=== PATIENT | male | born 1940 | race Caucasian/White ===

== ENCOUNTER 2016-10-14 12:12 | Emergency (ER) | payer OTHER ==
[~2016-10-14] VITALS: Ht 172.7 cm; Wt 115.7 kg
[2016-10-14 12:44] VITALS: BP 127/89
[2016-10-14 14:18] LABS: Basophils # (auto) 0 uL; Basophils % (auto) 0.4 % (0.0-2.0); Eosinophils # (auto) 0.2 uL; Eosinophils % (auto) 1.5 % (0.0-7.0); Hematocrit 41.3 % (41.0-53.0); Hemoglobin 13.7 g/dL (13.5-17.5); Lymphocytes # (auto) 1.7 uL; Lymphocytes % (auto) 14.8 % (10.0-50.0); Mean Corpuscular Hemoglobin 32.2 pg (28.0-32.0); Mean Corpuscular Hgb Conc. 33.3 g/dL (32.0-36.0); Mean Corpuscular Volume 96.6 fL (80.0-100.0); Mean Platelet Volume 7.2 fL (7.4-10.4); Monocytes # (auto) 0.6 uL; Monocytes % (auto) 4.9 % (0.0-12.0); Neutrophils # (auto) 9.1 uL; Neutrophils % (auto) 78.4 % (37.0-80.0); Platelet Count (auto) 458 10^3/uL (140-450); Red Cell Distribution Width 15.2 % (11.6-16.0); White Blood Cell 11.7 10^3/uL (4.4-10.8)
[2016-10-14 14:47] LABS: Albumin 3.4 g/dL (3.4-5.0); BUN/Creatinine Ratio 9.4; Bilirubin, Total 0.3 mg/dL (0.2-1.0); Calcium 8.9 mg/dL (8.5-10.1); Total Protein 7.7 g/dL (6.4-8.2)
[2016-10-14 15:18] LABS: Potassium 5.8 mmol/L (3.5-5.1)
[2016-10-14 15:24] LABS: INR 2.63 (0.9-1.15); Partial Thromboplastin Time 42.2 sec (22.64-33.71)
[2016-10-14 15:31] LABS: Magnesium 2.1 mg/dL (1.6-2.6)
[2016-10-14 16:13] LABS: B-Type Natriuretic Peptide 19.55 pg/mL (0-100)
[2016-10-14 16:20] LABS: Temperature: 23.3 C (20.0-25.0)
== END 2016-10-14 18:53 | disposition left against medical advice (07) ==
LOC: ER 12:12
DX: R79.89 Other specified abnormal findings of blood chemistry (principal); Z53.21 Procedure and treatment not carried out due to patient leaving prior to being seen by health care provider
CPT/HCPCS: 36415; 80053; 82140; 83735; 83880; 84443; 84484; 85025; 85379; 85610; 85730

== ENCOUNTER → 2016-10-14 | Outpatient (CLI) | payer OTHER ==
[~2016-10-14] MED LIST: DYA375C PO; GABA-498 OR; GLIP-116 OR; IBUP600T27 PO; LEVO125T46 PO; LOPE2CAP PO; METF-316 OR; SIMV-13 PO; WARF4TAB31 PO
[2016-10-14 09:43] LABS: Basophils # (auto) 0 uL; Basophils % (auto) 0.3 % (0.0-2.0); Eosinophils # (auto) 0.3 uL; Eosinophils % (auto) 2.4 % (0.0-7.0); Hematocrit 43.1 % (41.0-53.0); Hemoglobin 14.5 g/dL (13.5-17.5); Lymphocytes # (auto) 2.3 uL; Lymphocytes % (auto) 20.8 % (10.0-50.0); Mean Corpuscular Hemoglobin 32.5 pg (28.0-32.0); Mean Corpuscular Hgb Conc. 33.7 g/dL (32.0-36.0); Mean Corpuscular Volume 96.4 fL (80.0-100.0); Mean Platelet Volume 7.5 fL (7.4-10.4); Monocytes # (auto) 0.7 uL; Monocytes % (auto) 6.2 % (0.0-12.0); Neutrophils # (auto) 7.7 uL; Neutrophils % (auto) 70.3 % (37.0-80.0); Platelet Count (auto) 464 10^3/uL (140-450); Red Cell Distribution Width 15.6 % (11.6-16.0); White Blood Cell 10.9 10^3/uL (4.4-10.8)
[2016-10-14 09:55] LABS: Urine Bilirubin Negative (Negative); Urine Blood Negative /uL (Negative); Urine Color Yellow (Yellow); Urine Glucose Normal (Normal); Urine Ketone Negative (Negative); Urine Mucus FEW (None Seen); Urine RBC 2 /hpf (0 - 3); Urine Urobilinogen Normal (Negative); Urine WBC Clumps PRESENT /hpf (None Seen); Urine pH 5.5 (5.0-8.0)
[2016-10-14 09:56] LABS: Urine Nitrite POSITIVE (Negative)
[2016-10-14 10:13] LABS: Albumin 3.4 g/dL (3.4-5.0); BUN/Creatinine Ratio 10.1; Bilirubin, Total 0.3 mg/dL (0.2-1.0); Calcium 9.3 mg/dL (8.5-10.1)
[2016-10-14 10:23] LABS: Potassium 5.7 mmol/L (3.5-5.1)
== END | disposition home or self-care (01) ==
LOC: LAB 08:23
PROVIDERS: ATTEND Internal Medicine
DX: Z00.00 Encounter for general adult medical examination without abnormal findings (principal); I10 Essential (primary) hypertension; E78.5 Hyperlipidemia, unspecified; E55.9 Vitamin D deficiency, unspecified
CPT/HCPCS: 36415; 80053; 80061; 81001; 82043; 82270; 82306; 83036; 84153; 85025

== ENCOUNTER 2016-11-03 18:02 | Inpatient (IN) | payer OTHER ==
[~2016-11-03] VITALS: Ht 172.7 cm; Wt 118.1 kg
[~2016-11-03 18:02] MED LIST changes: -METF-316 OR; +METF-372 OR
[2016-11-03] MEDS ORDERED: VANCOMYCIN 1GM/250ML D5W 250 ML IV ONE (19:15)
[2016-11-03] MEDS ORDERED: SODIUM CHLORIDE 0.9% 1,000 ML IV ONE (19:15)
[2016-11-03] MEDS ORDERED: HYDROmorphone HCL 2 MG/ML VL IV ONE (19:15)
[2016-11-03] MEDS ORDERED: ONDANSETRON HCL 4 MG/2 ML VIAL IV ONE (19:15)
[2016-11-03] MEDS ORDERED: PIPERACILLIN-TAZO 4.5GM 100 ML IV ONE (19:15)
[2016-11-03] MEDS ORDERED: KETOROLAC TROMETH 30 MG/ML 1ML VIAL IV ONE (19:15)
[2016-11-03 20:09] LABS: Basophils # (auto) 0 uL; Basophils % (auto) 0.3 % (0.0-2.0); Eosinophils # (auto) 0.2 uL; Eosinophils % (auto) 1.3 % (0.0-7.0); Hematocrit 36.4 % (41.0-53.0); Hemoglobin 12.1 g/dL (13.5-17.5); Lymphocytes # (auto) 1.4 uL; Lymphocytes % (auto) 11.3 % (10.0-50.0); Mean Corpuscular Hemoglobin 31.5 pg (28.0-32.0); Mean Corpuscular Hgb Conc. 33.2 g/dL (32.0-36.0); Mean Corpuscular Volume 94.8 fL (80.0-100.0); Mean Platelet Volume 7.7 fL (7.4-10.4); Monocytes # (auto) 0.6 uL; Neutrophils # (auto) 10.3 uL; Neutrophils % (auto) 82.1 % (37.0-80.0); Platelet Count (auto) 406 10^3/uL (140-450); Red Cell Distribution Width 15.2 % (11.6-16.0); White Blood Cell 12.5 10^3/uL (4.4-10.8)
[2016-11-03 20:27] LABS: Partial Thromboplastin Time 52.1 sec (22.64-33.71)
[2016-11-03 20:33] LABS: INR 3.31 (0.9-1.15); Prothrombin Time 36.5 sec (9.37-12.3)
[2016-11-03 20:43] LABS: Albumin 2.7 g/dL (3.4-5.0); Alkaline Phosphatase 89 U/L (45-117); Anion Gap 10 (5-15); Aspartate Aminotransferase 20 U/L (15-37); BUN/Creatinine Ratio 14.5; Bilirubin, Total 0.4 mg/dL (0.2-1.0); Blood Urea Nitrogen 21 mg/dL (7-18); Calcium 8.2 mg/dL (8.5-10.1); Carbon Dioxide 19 mmol/L (21-32); Chloride 104 mmol/L (98-107); GFR African American 61 mL/min; GFR Non-African American 51 mL/min; Glucose 230 mg/dL (74-106); Potassium 4.6 mmol/L (3.5-5.1); Sodium 133 mmol/L (136-145); Total Protein 6.7 g/dL (6.4-8.2)
[2016-11-03 20:53] LABS: B-Type Natriuretic Peptide 84.16 pg/mL (0-100)
[2016-11-03 21:11] LABS: Temperature: 23.3 C (20.0-25.0)
[2016-11-03] MEDS ORDERED: NITROGLYCERIN 0.4 MG SL TAB SL PRN (22:00)
[2016-11-03] MEDS ORDERED: MORPHINE SULF INJ 2 MG/ML SYRINGE 1ML IV PRN ×2 (22:00)
[2016-11-03] MEDS ORDERED: ONDANSETRON HCL 4 MG/2 ML VIAL IV PRN (22:00)
[2016-11-03] MEDS ORDERED: DEXTROSE (50%) 50ML SYRG IV PRN (22:00)
[2016-11-03] MEDS ORDERED: VANCOMYCIN PER PHARMACY 0 MG IV SCH (22:00)
[2016-11-03] MEDS ORDERED: HYDROcodone-ACET 5/325MG TAB PO PRN (22:00)
[2016-11-03] MEDS ORDERED: TEMAZEPAM 15 MG CAP PO PRN (22:00)
[2016-11-03] MEDS: SODIUM CHLOR 0.9% PF (SALINE LOCK) 10ML VIAL IV SCH (22:14)
[2016-11-03] MEDS: InsuLIN REG 1unit/0.01ml Soln (100units/ml) SC SCH (22:18)
[2016-11-03] MEDS: ACCU-CHEK COMFORT CURVE STRIP VI SCH (22:18)
[2016-11-03] MEDS: GABAPENTIN 400 MG CAP PO SCH (22:22)
[2016-11-03] MEDS: ATORVASTATIN 20 MG TAB PO SCH (22:22)
[2016-11-04] VITALS (13 sets, daily range): BP systolic 106–126; BP diastolic 22–89
[2016-11-04] MEDS: SODIUM CHLOR 0.9% PF (SALINE LOCK) 10ML VIAL IV SCH ×3 (05:57→21:53)
[2016-11-04] MEDS: LEVOTHYROXINE SODIUM 25 MCG TAB PO SCH (06:00)
[2016-11-04] MEDS: ACCU-CHEK COMFORT CURVE STRIP VI SCH ×4 (06:00→22:24)
[2016-11-04] MEDS: InsuLIN REG 1unit/0.01ml Soln (100units/ml) SC SCH ×4 (06:00→22:24)
[2016-11-04] MEDS: PIPERACILLIN-TAZOB 3.375GM 100 ML IV SCH ×3 (07:00→19:03)
[2016-11-04] MEDS ORDERED: GASTROGRAFIN 30 ML SOL ONE (08:16)
[2016-11-04] MEDS ORDERED: metroNIDAZOLE 500MG/100ML 100 ML IV SCH (10:00)
[2016-11-04] MEDS ORDERED: PIPERACILLIN-TAZOB 3.375GM 100 ML IV SCH (10:00)
[2016-11-04] MEDS ORDERED: TRIAMTERENE/HCTZ 37.5/25 MG CAP PO SCH (10:00)
[2016-11-04 10:11] LABS: Albumin 2.7 g/dL (3.4-5.0); Anion Gap 11 (5-15); Aspartate Aminotransferase 45 U/L (15-37); BUN/Creatinine Ratio 15.3; Blood Urea Nitrogen 27 mg/dL (7-18); Calcium 8.2 mg/dL (8.5-10.1); Carbon Dioxide 20 mmol/L (21-32); Chloride 105 mmol/L (98-107); GFR African American 49 mL/min; GFR Non-African American 40 mL/min; Glucose 173 mg/dL (74-106); Potassium 4.8 mmol/L (3.5-5.1); Sodium 136 mmol/L (136-145)
[2016-11-04 10:13] LABS: Alkaline Phosphatase 96 U/L (45-117); Bilirubin, Total 0.6 mg/dL (0.2-1.0); Total Protein 6.8 g/dL (6.4-8.2)
[2016-11-04 10:16] LABS: Basophils # (auto) 0 uL; Basophils % (auto) 0.1 % (0.0-2.0); Eosinophils # (auto) 0.3 uL; Eosinophils % (auto) 2.7 % (0.0-7.0); Hematocrit 36.6 % (41.0-53.0); Hemoglobin 12.3 g/dL (13.5-17.5); Lymphocytes # (auto) 1.2 uL; Lymphocytes % (auto) 10.7 % (10.0-50.0); Mean Corpuscular Hemoglobin 31.8 pg (28.0-32.0); Mean Corpuscular Hgb Conc. 33.7 g/dL (32.0-36.0); Mean Corpuscular Volume 94.6 fL (80.0-100.0); Mean Platelet Volume 7.8 fL (7.4-10.4); Monocytes # (auto) 0.7 uL; Monocytes % (auto) 6.2 % (0.0-12.0); Neutrophils # (auto) 9.2 uL; Neutrophils % (auto) 80.3 % (37.0-80.0); Platelet Count (auto) 364 10^3/uL (140-450); SUSPECT VIEW TRANSMISSION; White Blood Cell 11.4 10^3/uL (4.4-10.8)
[2016-11-04] MEDS: VANCOMYCIN 1GM/250ML D5W 250 ML IV SCH ×2 (10:18→21:53)
[2016-11-04] MEDS: GABAPENTIN 400 MG CAP PO SCH ×2 (10:19→21:54)
[2016-11-04 10:39] LABS: Partial Thromboplastin Time 53.2 sec (22.64-33.71)
[2016-11-04 10:46] LABS: INR 3.55 (0.9-1.15); Prothrombin Time 39.2 sec (9.37-12.3)
[2016-11-04] MEDS: SODIUM CHLORIDE 0.9% 1,000 ML IV SCH (13:15)
[2016-11-04] MEDS ORDERED: ACETAMINOPHEN 325 MG TAB PO PRN (16:15)
[2016-11-04] MEDS: ATORVASTATIN 20 MG TAB PO SCH (21:54)
[2016-11-05] VITALS (18 sets, daily range): BP systolic 102–139; BP diastolic 55–86
[2016-11-05] MEDS: PIPERACILLIN-TAZOB 3.375GM 100 ML IV SCH ×4 (00:42→19:44)
[2016-11-05] MEDS: SODIUM CHLORIDE 0.9% 1,000 ML IV SCH ×2 (02:35→15:55)
[2016-11-05 05:06] LABS: Urine Bilirubin Negative (Negative); Urine Blood Negative /uL (Negative); Urine Color Yellow (Yellow); Urine Glucose Normal (Normal); Urine Ketone Negative (Negative); Urine Nitrite Negative (Negative); Urine RBC 1 /hpf (0 - 3); Urine Urobilinogen Normal (Negative); Urine pH 5.5 (5.0-8.0)
[2016-11-05] MEDS: SODIUM CHLOR 0.9% PF (SALINE LOCK) 10ML VIAL IV SCH ×3 (06:03→21:08)
[2016-11-05] MEDS: LEVOTHYROXINE SODIUM 25 MCG TAB PO SCH (06:03)
[2016-11-05] MEDS: InsuLIN REG 1unit/0.01ml Soln (100units/ml) SC SCH ×4 (06:04→22:00)
[2016-11-05] MEDS: ACCU-CHEK COMFORT CURVE STRIP VI SCH ×4 (06:04→21:09)
[2016-11-05 08:30] LABS: Basophils # (auto) 0 uL; Eosinophils # (auto) 0.1 uL; Eosinophils % (auto) 0.3 % (0.0-7.0); Hematocrit 34.4 % (41.0-53.0); Hemoglobin 11.6 g/dL (13.5-17.5); Lymphocytes # (auto) 0.9 uL; Lymphocytes % (auto) 5.5 % (10.0-50.0); Mean Corpuscular Hemoglobin 31.7 pg (28.0-32.0); Mean Corpuscular Hgb Conc. 33.7 g/dL (32.0-36.0); Mean Platelet Volume 7.2 fL (7.4-10.4); Monocytes # (auto) 0.5 uL; Monocytes % (auto) 3.2 % (0.0-12.0); Neutrophils # (auto) 14.1 uL; Platelet Count (auto) 411 10^3/uL (140-450); Red Cell Distribution Width 14.8 % (11.6-16.0); White Blood Cell 15.5 10^3/uL (4.4-10.8)
[2016-11-05 08:46] LABS: Partial Thromboplastin Time 42.6 sec (22.64-33.71)
[2016-11-05 08:52] LABS: Albumin 2.8 g/dL (3.4-5.0); BUN/Creatinine Ratio 17.8; Bilirubin, Total 0.8 mg/dL (0.2-1.0); Calcium 8.5 mg/dL (8.5-10.1); Potassium 4.7 mmol/L (3.5-5.1)
[2016-11-05 08:55] LABS: INR 1.76 (0.9-1.15); Prothrombin Time 19.3 sec (9.37-12.3)
[2016-11-05] MEDS ORDERED: PHYTONADIONE (VIT K)10 MG/ML 1ML VIAL SUBCUT ONE (10:30)
[2016-11-05] MEDS: CLINDAMYCIN 600MG IV 50 ML IV SCH ×2 (10:37→19:31)
[2016-11-05] MEDS: GABAPENTIN 400 MG CAP PO SCH ×2 (10:37→21:08)
[2016-11-05] MEDS: ATORVASTATIN 20 MG TAB PO SCH (21:08)
[2016-11-06] MEDS: PIPERACILLIN-TAZOB 3.375GM 100 ML IV SCH ×2 (02:40→06:14)
[2016-11-06] MEDS: CLINDAMYCIN 600MG IV 50 ML IV SCH (04:19)
[2016-11-06] MEDS: SODIUM CHLORIDE 0.9% 1,000 ML IV SCH (05:15)
[2016-11-06 05:59] VITALS: BP 118/60
[2016-11-06] MEDS: SODIUM CHLOR 0.9% PF (SALINE LOCK) 10ML VIAL IV SCH (06:14)
[2016-11-06] MEDS: ACCU-CHEK COMFORT CURVE STRIP VI SCH (06:15)
[2016-11-06] MEDS: LEVOTHYROXINE SODIUM 25 MCG TAB PO SCH (06:15)
[2016-11-06 06:25] LABS: Basophils # (auto) 0 uL; Eosinophils # (auto) 0.1 uL; Eosinophils % (auto) 0.9 % (0.0-7.0); Hematocrit 30.7 % (41.0-53.0); Hemoglobin 10.4 g/dL (13.5-17.5); Lymphocytes # (auto) 0.9 uL; Mean Corpuscular Hemoglobin 32.2 pg (28.0-32.0); Mean Corpuscular Volume 94.7 fL (80.0-100.0); Mean Platelet Volume 7.6 fL (7.4-10.4); Monocytes # (auto) 0.4 uL; Monocytes % (auto) 3.1 % (0.0-12.0); Neutrophils # (auto) 12.1 uL; Platelet Count (auto) 379 10^3/uL (140-450); Red Cell Distribution Width 14.6 % (11.6-16.0); White Blood Cell 13.6 10^3/uL (4.4-10.8)
[2016-11-06] MEDS: InsuLIN REG 1unit/0.01ml Soln (100units/ml) SC SCH (06:45)
[2016-11-06 07:00] LABS: BUN/Creatinine Ratio 17.5; Calcium 8.4 mg/dL (8.5-10.1)
[2016-11-06 08:00] VITALS: BP 110/53
[2016-11-06 09:11] LABS: Partial Thromboplastin Time 32.7 sec (22.64-33.71)
[2016-11-06 09:14] LABS: INR 1.24 (0.9-1.15); Prothrombin Time 13.6 sec (9.37-12.3)
[2016-11-06] MEDS ORDERED: PHYTONADIONE (VIT K)10 MG/ML 1ML VIAL SUBCUT SCH (10:00)
[2016-11-06] MEDS: GABAPENTIN 400 MG CAP PO SCH (10:16)
== END 2016-11-06 10:30 | disposition short-term general hospital (02) | DRG 871 ==
LOC: ER 18:04 → TELE 18:05 → TELE-EAST 23:07
PROVIDERS: ADMIT Emergency Medicine; ATTEND Internal Medicine
PROC: 30233N1 Transfusion of Nonautologous Red Blood Cells into Peripheral Vein, Percutaneous Approach (ICD-10-PCS; principal; 2016-11-03)
DX: A41.9 Sepsis, unspecified organism (principal); M72.6 Necrotizing fasciitis; K56.60 Unspecified intestinal obstruction; D68.9 Coagulation defect, unspecified; N39.0 Urinary tract infection, site not specified; N49.2 Inflammatory disorders of scrotum; J44.9 Chronic obstructive pulmonary disease, unspecified; I10 Essential (primary) hypertension; E11.22 Type 2 diabetes mellitus with diabetic chronic kidney disease; E78.5 Hyperlipidemia, unspecified; I12.9 Hypertensive chronic kidney disease with stage 1 through stage 4 chronic kidney disease, or unspecified chronic kidney disease; K43.9 Ventral hernia without obstruction or gangrene; N40.0 Benign prostatic hyperplasia without lower urinary tract symptoms; Z82.0 Family history of epilepsy and other diseases of the nervous system; Z83.3 Family history of diabetes mellitus; Z90.49 Acquired absence of other specified parts of digestive tract; Z90.79 Acquired absence of other genital organ(s); E11.40 Type 2 diabetes mellitus with diabetic neuropathy, unspecified; Z90.89 Acquired absence of other organs; Z71.89 Other specified counseling; Z86.718 Personal history of other venous thrombosis and embolism; E66.01 Morbid (severe) obesity due to excess calories; Z68.39 Body mass index [BMI] 39.0-39.9, adult; D64.9 Anemia, unspecified
CPT/HCPCS: 36415; 71010; 74176; 76870; 80048; 80053; 81001; 82962; 83036; 83605; 83880; 84484; 85025; 85610; 85730; 86141; 86850; 86900; 86901; 87040; 87081; 87086; 93005; 94761; 96365; 96368; 96375; J1815; J1885; J2405; J2543; J3430; J3490

== ENCOUNTER → 2017-02-05 | Outpatient (CLI) | payer OTHER ==
[~2017-02-05] MED LIST changes: -DYA375C PO; -GLIP-116 OR; -IBUP600T27 PO; -LOPE2CAP PO; -METF-372 OR; -SIMV-13 PO
== END | disposition home or self-care (01) ==
LOC: XYW 08:27
PROVIDERS: ATTEND Internal Medicine Cardiovascular Disease
DX: Z01.810 Encounter for preprocedural cardiovascular examination (principal); I11.9 Hypertensive heart disease without heart failure; I05.0 Rheumatic mitral stenosis; I35.0 Nonrheumatic aortic (valve) stenosis
CPT/HCPCS: 93306

== ENCOUNTER → 2017-02-11 | Outpatient (CLI) | payer OTHER ==
[~2017-02-11] VITALS: Ht 172.7 cm; Wt 111.1 kg
[~2017-02-11] MED LIST changes: +ADENOSINE 93 MG in GIVE UN-DILUTED 0 ML IV ONE; +ALBUTEROL SULF 2.5 MG/0.5ML(0.5%) NEB SOLN ONE; +IPRATROPIUM BROM 0.5 MG/2.5ML INH SOL ONE
== END | disposition home or self-care (01) ==
LOC: XY 08:49
PROVIDERS: ATTEND Internal Medicine Cardiovascular Disease
DX: Z01.810 Encounter for preprocedural cardiovascular examination (principal)
CPT/HCPCS: 78452; 93017; 94640; A9500; J0153

== ENCOUNTER 2017-03-25 05:59 | Day surgery (SDC) | payer OTHER ==
[2017-03-24 12:43] LABS: Basophils # (auto) 0.1 uL; Basophils % (auto) 0.5 % (0.0-2.0); Eosinophils # (auto) 0.4 uL; Hematocrit 37.7 % (41.0-53.0); Hemoglobin 12.2 g/dL (13.5-17.5); Lymphocytes # (auto) 1.5 uL; Lymphocytes % (auto) 11.9 % (10.0-50.0); Mean Corpuscular Hemoglobin 29.3 pg (28.0-32.0); Mean Corpuscular Hgb Conc. 32.3 g/dL (32.0-36.0); Mean Corpuscular Volume 90.8 fL (80.0-100.0); Monocytes # (auto) 0.6 uL; Monocytes % (auto) 4.8 % (0.0-12.0); Neutrophils % (auto) 79.8 % (37.0-80.0); Platelet Count (auto) 408 10^3/uL (140-450); Red Blood Cells 4.16 10^6/uL (4.5-5.90); Red Cell Distribution Width 18.9 % (11.8-14.3); White Blood Cell 12.6 10^3/uL (4.4-10.8)
[2017-03-24 12:49] LABS: Urine Bacteria MOD /hpf (None Seen); Urine Blood Negative /uL (Negative); Urine Mucus FEW (None Seen); Urine Specific Gravity 1.017 (1.001-1.035); Urine WBC 277 /hpf (0 - 3); Urine WBC Clumps PRESENT /hpf (None Seen)
[2017-03-24 13:07] LABS: Albumin 2.9 g/dL (3.4-5.0); BUN/Creatinine Ratio 12.7; Bilirubin, Total 0.3 mg/dL (0.2-1.0); Calcium 8.9 mg/dL (8.5-10.1); Potassium 5.2 mmol/L (3.5-5.1); Total Protein 7.2 g/dL (6.4-8.2)
[2017-03-24 13:09] LABS: INR 0.94 (0.9-1.15); Partial Thromboplastin Time 28.2 sec (22.64-33.71); Prothrombin Time 10.2 sec (9.37-12.3)
[~2017-03-25] VITALS: Ht 172.7 cm; Wt 112.5 kg
[~2017-03-25 05:59] MED LIST changes: -ADENOSINE 93 MG in GIVE UN-DILUTED 0 ML IV ONE; +ALBUAER3 IN; -ALBUTEROL SULF 2.5 MG/0.5ML(0.5%) NEB SOLN ONE; +APIX5TAB OR; -GABA-498 OR; +GLIP-115 PO; -IPRATROPIUM BROM 0.5 MG/2.5ML INH SOL ONE; -LEVO125T46 PO; +LEVO88TA4 PO; -WARF4TAB31 PO
[2017-03-25] MEDS ORDERED: MITOMYCIN 40 MG in STERILE WATER 60 ML IS ONE (06:45)
[2017-03-25] MEDS ORDERED: LEVOFLOXACIN 500MG 100 ML IV ONE (06:53)
[2017-03-25] MEDS ORDERED: NEOSTIGMINE 1 MG/ML INJ (10mg/10ML VIAL) IV ONE (07:37)
[2017-03-25] MEDS ORDERED: MIDAZOLAM HCL 1MG/1ML-2 ML VIAL ONE (07:37)
[2017-03-25] MEDS ORDERED: GLYCOPYRROLATE 0.2 MG/ML 1ML VIAL IV ONE (07:37)
[2017-03-25] MEDS ORDERED: SUCCINYLCHOLINE CHLORIDE 20 MG/ML 10ML VIAL IV ONE (07:37)
[2017-03-25] MEDS ORDERED: fentaNYL CITRATE 100 MCG/2 ML VL ONE (07:37)
[2017-03-25] MEDS ORDERED: ROCURONIUM 10MG/ML 10ML VIAL IV ONE (07:37)
[2017-03-25] MEDS ORDERED: PROPOFOL 10 MG/ML 20 ML IV ONE (07:38)
[2017-03-25] MEDS ORDERED: LIDOCAINE 2% JELLY 11ml (GLYDO) ONE (07:52)
[2017-03-25] MEDS ORDERED: ePHEDrine SULFATE 50 MG/ML AMP IV PRN (08:45)
[2017-03-25] MEDS ORDERED: MORPHINE SULF INJ 2 MG/ML SYRINGE 1ML IV PRN (08:45)
[2017-03-25] MEDS ORDERED: hydrALAZINE HCL 20 MG/ML VL IV PRN (08:45)
[2017-03-25] MEDS ORDERED: ONDANSETRON HCL 4 MG/2 ML VIAL IV ONE (08:45)
[2017-03-25 09:50] VITALS: BP 136/60
== END 2017-03-25 09:56 | disposition home or self-care (01) ==
LOC: SUR 05:59
PROVIDERS: ATTEND Urology
DX: D49.4 Neoplasm of unspecified behavior of bladder (principal); Z90.49 Acquired absence of other specified parts of digestive tract; E66.9 Obesity, unspecified; I12.9 Hypertensive chronic kidney disease with stage 1 through stage 4 chronic kidney disease, or unspecified chronic kidney disease; E11.22 Type 2 diabetes mellitus with diabetic chronic kidney disease; N18.3 Chronic kidney disease, stage 3 (moderate); I82.409 Acute embolism and thrombosis of unspecified deep veins of unspecified lower extremity; E03.9 Hypothyroidism, unspecified
CPT/HCPCS: 36415; 52224; 80053; 81001; 82962; 85025; 85610; 85730; 88305; 88341; 88342; J0330; J1956; J2250; J2704; J3010; J9280

== ENCOUNTER 2017-04-15 08:13 | Emergency (ER) | payer OTHER ==
[~2017-04-15] VITALS: Ht 172.7 cm; Wt 110.2 kg
[2017-04-15 10:29] VITALS: BP 122/64
== END 2017-04-15 10:54 | disposition home or self-care (01) ==
LOC: ER 08:13
DX: T14.8XXA Other injury of unspecified body region, initial encounter (principal); E11.22 Type 2 diabetes mellitus with diabetic chronic kidney disease; I12.9 Hypertensive chronic kidney disease with stage 1 through stage 4 chronic kidney disease, or unspecified chronic kidney disease; N18.9 Chronic kidney disease, unspecified; J44.9 Chronic obstructive pulmonary disease, unspecified; E78.5 Hyperlipidemia, unspecified; I82.409 Acute embolism and thrombosis of unspecified deep veins of unspecified lower extremity; W01.0XXA Fall on same level from slipping, tripping and stumbling without subsequent striking against object, initial encounter; Y93.01 Activity, walking, marching and hiking; Y92.89 Other specified places as the place of occurrence of the external cause; Y99.8 Other external cause status
CPT/HCPCS: 70450; 72100; 93005

== ENCOUNTER 2017-05-29 09:04 | Inpatient (IN) | payer OTHER ==
[~2017-05-29] VITALS: Ht 172.7 cm; Wt 120.8 kg
[~2017-05-29 09:04] MED LIST changes: -ALBUAER3 IN; +ALBUAER3 PO; -APIX5TAB OR; +APIX5TAB PO
[2017-05-29] MEDS ORDERED: HYDROmorphone HCL 2 MG/ML VL IV ONE (10:00)
[2017-05-29] MEDS ORDERED: ONDANSETRON HCL 4 MG/2 ML VIAL IV ONE (10:00)
[2017-05-29] MEDS ORDERED: DEXTROSE (50%) 50ML SYRG IV PRN (12:15)
[2017-05-29] MEDS ORDERED: ALBUTEROL SULF 2.5 MG/0.5ML(0.5%) NEB SOLN NEB PRN (12:15)
[2017-05-29] MEDS ORDERED: ACETAMINOPHEN 500 MG TAB PO PRN (12:15)
[2017-05-29] MEDS ORDERED: TEMAZEPAM 15 MG CAP PO PRN (12:15)
[2017-05-29] MEDS ORDERED: NITROGLYCERIN 0.4 MG SL TAB SL PRN (12:15)
[2017-05-29] MEDS ORDERED: MORPHINE SULFATE 10 MG/ML INJ 1ML SDV IV PRN (12:15)
[2017-05-29] MEDS: SODIUM CHLORIDE 0.9% 1,000 ML IV SCH ×2 (12:22→22:06)
[2017-05-29 12:25] LABS: Basophils # (auto) 0.1 uL; Basophils % (auto) 0.4 % (0.0-2.0); Eosinophils # (auto) 0.1 uL; Eosinophils % (auto) 0.6 % (0.0-7.0); Hematocrit 37.1 % (41.0-53.0); Hemoglobin 12.2 g/dL (13.5-17.5); Lymphocytes # (auto) 1.3 uL; Lymphocytes % (auto) 7.9 % (10.0-50.0); Mean Corpuscular Hemoglobin 30.1 pg (28.0-32.0); Mean Corpuscular Hgb Conc. 32.8 g/dL (32.0-36.0); Mean Corpuscular Volume 91.7 fL (80.0-100.0); Monocytes # (auto) 0.6 uL; Monocytes % (auto) 3.5 % (0.0-12.0); Neutrophils # (auto) 14.7 uL; Neutrophils % (auto) 87.6 % (37.0-80.0); Platelet Count (auto) 404 10^3/uL (140-450); Red Blood Cells 4.05 10^6/uL (4.5-5.90); White Blood Cell 16.8 10^3/uL (4.4-10.8)
[2017-05-29 12:43] LABS: Red Cell Distribution Width 20.7 % (11.8-14.3)
[2017-05-29 12:47] LABS: INR 0.92 (0.9-1.15)
[2017-05-29 12:48] LABS: BUN/Creatinine Ratio 14.7; Calcium 8.5 mg/dL (8.5-10.1); Magnesium 1.7 mg/dL (1.6-2.6); Potassium 5.2 mmol/L (3.5-5.1)
[2017-05-29 12:50] LABS: Bilirubin, Total 0.3 mg/dL (0.2-1.0); Total Protein 7.4 g/dL (6.4-8.2)
[2017-05-29] MEDS: HYDROcodone-ACET 5/325MG TAB PO PRN ×2 (13:29→22:25)
[2017-05-29] MEDS: MORPHINE SULFATE 10 MG/ML INJ 1ML SDV IV PRN ×2 (15:05→20:03)
[2017-05-29 15:51] VITALS: BP 112/62
[2017-05-29] MEDS ORDERED: SODIUM POLYSTYRENE SULF 15GM/60ML SUSP PO ONE (16:30)
[2017-05-29] MEDS: InsuLIN REG 1unit/0.01ml Soln (100units/ml) SC SCH ×2 (16:47→22:12)
[2017-05-29] MEDS: ACCU-CHEK COMFORT CURVE STRIP VI SCH ×2 (16:47→22:06)
[2017-05-29 16:50] LABS: Urine Bacteria MOD /hpf (None Seen); Urine Blood Negative /uL (Negative); Urine Budding Yeast FEW /hpf (None Seen); Urine Specific Gravity 1.015 (1.001-1.035); Urine WBC 20 /hpf (0 - 3)
[2017-05-29 20:00] VITALS: BP 134/72
[2017-05-29 21:45] VITALS: BP 134/72
[2017-05-29] MEDS: LORazepam 0.5 MG TAB PO PRN (23:21)
[2017-05-30] MEDS: PROMETHAZINE HCL 25 MG/ML 1ML IV PRN ×4 (00:46→17:27)
[2017-05-30] MEDS: MORPHINE SULFATE 10 MG/ML INJ 1ML SDV IV PRN ×3 (00:46→17:15)
[2017-05-30 04:36] VITALS: BP 129/75
[2017-05-30 06:02] LABS: Basophils # (auto) 0 uL; Basophils % (auto) 0.2 % (0.0-2.0); Eosinophils # (auto) 0 uL; Eosinophils % (auto) 0.1 % (0.0-7.0); Hematocrit 41.3 % (41.0-53.0); Hemoglobin 13.5 g/dL (13.5-17.5); Lymphocytes # (auto) 0.8 uL; Lymphocytes % (auto) 4.2 % (10.0-50.0); Mean Corpuscular Hemoglobin 30.9 pg (28.0-32.0); Mean Corpuscular Hgb Conc. 32.6 g/dL (32.0-36.0); Mean Corpuscular Volume 94.8 fL (80.0-100.0); Monocytes # (auto) 0.6 uL; Monocytes % (auto) 3.4 % (0.0-12.0); Neutrophils # (auto) 17.3 uL; Neutrophils % (auto) 92.1 % (37.0-80.0); Platelet Count (auto) 429 10^3/uL (140-450); Red Blood Cells 4.35 10^6/uL (4.5-5.90); White Blood Cell 18.8 10^3/uL (4.4-10.8)
[2017-05-30 06:07] LABS: Red Cell Distribution Width 20.9 % (11.8-14.3)
[2017-05-30 06:21] LABS: Albumin 3.1 g/dL (3.4-5.0); Calcium 8.8 mg/dL (8.5-10.1)
[2017-05-30 06:23] LABS: BUN/Creatinine Ratio 15.9
[2017-05-30 06:27] LABS: Potassium 5.9 mmol/L (3.5-5.1)
[2017-05-30 06:28] LABS: Bilirubin, Total 0.5 mg/dL (0.2-1.0); Total Protein 7.9 g/dL (6.4-8.2)
[2017-05-30] MEDS: ACCU-CHEK COMFORT CURVE STRIP VI SCH ×3 (06:31→17:16)
[2017-05-30] MEDS: InsuLIN REG 1unit/0.01ml Soln (100units/ml) SC SCH ×3 (06:31→17:27)
[2017-05-30] MEDS ORDERED: SODIUM POLYSTYRENE SULF 15GM/60ML SUSP PO ONE ×2 (06:45→10:30)
[2017-05-30] MEDS: SODIUM CHLORIDE 0.9% 1,000 ML IV SCH ×2 (07:46→17:16)
[2017-05-30 08:00] VITALS: BP 142/63
[2017-05-30 09:00] VITALS: BP 142/63
[2017-05-30] MEDS ORDERED: cefTRIAXone 1GM/10ml IVPUSH 10 ML IV ONE (12:15)
[2017-05-30] MEDS ORDERED: DEXTROSE (50%) 50ML SYRG IV PRN (12:15)
[2017-05-30] MEDS ORDERED: PANTOPRAZOLE 40 MG/10 ML VIAL IV ONE ×2 (12:15→12:30)
[2017-05-30 13:00] VITALS: BP 136/67
[2017-05-30] MEDS ORDERED: SODIUM BICARBONATE 8.4 % INJ 50ML VIAL IV ONE (13:00)
[2017-05-30 17:00] VITALS: BP 137/54
[2017-05-30 18:16] LABS: BUN/Creatinine Ratio 19.2; Potassium 4.7 mmol/L (3.5-5.1)
[2017-05-30 22:05] VITALS: BP 128/60
[2017-05-30] MEDS: INSULIN DETEMIR(LEVEMIR) 1unit/0.01ml Soln (100units/ml) SC SCH (22:19)
[2017-05-31] MEDS: InsuLIN REG 1unit/0.01ml Soln (100units/ml) SC SCH ×4 (00:17→18:00)
[2017-05-31] MEDS: ACCU-CHEK COMFORT CURVE STRIP VI SCH ×4 (00:17→18:00)
[2017-05-31] MEDS: SODIUM CHLORIDE 0.9% 1,000 ML IV SCH ×2 (03:59→09:49)
[2017-05-31 04:47] VITALS: BP 140/73
[2017-05-31 06:07] LABS: Basophils # (auto) 0 uL; Basophils % (auto) 0.2 % (0.0-2.0); Eosinophils # (auto) 0.1 uL; Eosinophils % (auto) 0.5 % (0.0-7.0); Hematocrit 35.1 % (41.0-53.0); Hemoglobin 11.7 g/dL (13.5-17.5); Lymphocytes # (auto) 1.3 uL; Lymphocytes % (auto) 10.8 % (10.0-50.0); Mean Corpuscular Hemoglobin 30.6 pg (28.0-32.0); Mean Corpuscular Hgb Conc. 33.2 g/dL (32.0-36.0); Monocytes # (auto) 0.6 uL; Neutrophils # (auto) 10.3 uL; Neutrophils % (auto) 83.5 % (37.0-80.0); Nucleated Red Blood Cells % 0.1 %; Platelet Count (auto) 370 10^3/uL (140-450); Red Blood Cells 3.82 10^6/uL (4.5-5.90); White Blood Cell 12.3 10^3/uL (4.4-10.8)
[2017-05-31] MEDS: LEVOTHYROXINE SODIUM 88 MCG TAB PO SCH (06:07)
[2017-05-31 06:19] LABS: Red Cell Distribution Width 21.3 % (11.8-14.3)
[2017-05-31 06:30] LABS: BUN/Creatinine Ratio 18.6; Calcium 7.8 mg/dL (8.5-10.1); Potassium 4.4 mmol/L (3.5-5.1)
[2017-05-31] MEDS: MORPHINE SULFATE 10 MG/ML INJ 1ML SDV IV PRN (08:04)
[2017-05-31] MEDS ORDERED: cefTRIAXone 1GM/10ml IVPUSH 10 ML IV SCH (09:00)
[2017-05-31 09:12] VITALS: BP 139/64
[2017-05-31] MEDS: PANTOPRAZOLE 40 MG/10 ML VIAL IV SCH (09:42)
[2017-05-31] MEDS: INSULIN DETEMIR(LEVEMIR) 1unit/0.01ml Soln (100units/ml) SC SCH ×2 (09:47→21:37)
[2017-05-31 12:19] VITALS: BP 151/67
[2017-05-31] MEDS: HYDROmorphone HCL 2 MG/ML VL IV PRN ×2 (14:54→19:51)
[2017-05-31 17:23] VITALS: BP 128/58
[2017-05-31 22:11] VITALS: BP 103/58
[2017-06-01] MEDS: SODIUM CHLORIDE 0.9% 1,000 ML IV SCH ×3 (00:11→20:11)
[2017-06-01] MEDS: ACCU-CHEK COMFORT CURVE STRIP VI SCH ×4 (00:22→17:39)
[2017-06-01] MEDS: HYDROmorphone HCL 2 MG/ML VL IV PRN ×3 (04:00→22:33)
[2017-06-01 04:57] VITALS: BP 119/58
[2017-06-01] MEDS: InsuLIN REG 1unit/0.01ml Soln (100units/ml) SC SCH ×4 (05:19→17:39)
[2017-06-01 06:20] LABS: Basophils # (auto) 0 uL; Basophils % (auto) 0.2 % (0.0-2.0); Eosinophils # (auto) 0.2 uL; Eosinophils % (auto) 1.7 % (0.0-7.0); Hematocrit 32.6 % (41.0-53.0); Lymphocytes # (auto) 1.3 uL; Lymphocytes % (auto) 11.6 % (10.0-50.0); Mean Corpuscular Hemoglobin 31.1 pg (28.0-32.0); Mean Corpuscular Hgb Conc. 33.6 g/dL (32.0-36.0); Mean Corpuscular Volume 92.5 fL (80.0-100.0); Monocytes # (auto) 0.5 uL; Monocytes % (auto) 4.8 % (0.0-12.0); Neutrophils # (auto) 8.9 uL; Neutrophils % (auto) 81.7 % (37.0-80.0); Platelet Count (auto) 336 10^3/uL (140-450); Red Blood Cells 3.52 10^6/uL (4.5-5.90); White Blood Cell 10.9 10^3/uL (4.4-10.8)
[2017-06-01] MEDS: LEVOTHYROXINE SODIUM 88 MCG TAB PO SCH (06:28)
[2017-06-01] MEDS: HYDROcodone-ACET 5/325MG TAB PO PRN (06:37)
[2017-06-01 06:39] LABS: BUN/Creatinine Ratio 16.7; Calcium 7.9 mg/dL (8.5-10.1); Potassium 4.2 mmol/L (3.5-5.1)
[2017-06-01 06:49] LABS: Red Cell Distribution Width 21.6 % (11.8-14.3)
[2017-06-01 09:02] VITALS: BP 119/58
[2017-06-01 09:08] VITALS: BP 127/56
[2017-06-01] MEDS: INSULIN DETEMIR(LEVEMIR) 1unit/0.01ml Soln (100units/ml) SC SCH ×2 (10:00→21:44)
[2017-06-01] MEDS ORDERED: ceFAZolin 1GM/50ML 100 ML IV ONE (11:30)
[2017-06-01] MEDS ORDERED: fentaNYL CITRATE 100 MCG/2 ML VL ONE (11:58)
[2017-06-01] MEDS ORDERED: PROPOFOL 10 MG/ML 20 ML IV ONE (11:58)
[2017-06-01] MEDS ORDERED: NEOSTIGMINE 1 MG/ML INJ (10mg/10ML VIAL) ONE (13:00)
[2017-06-01] MEDS ORDERED: GLYCOPYRROLATE 0.2 MG/ML 1ML VIAL ONE (13:00)
[2017-06-01] MEDS ORDERED: cefTRIAXone 1GM/10ml IVPUSH 10 ML IV ONE (13:30)
[2017-06-01] MEDS ORDERED: ENOXAPARIN SOD 40 MG/0.4 ML SYRINGE SC ONE (14:00)
[2017-06-01] MEDS: ceFAZolin 1GM/50ML 50 ML IV SCH ×2 (14:02→21:29)
[2017-06-01] MEDS: PANTOPRAZOLE 40 MG/10 ML VIAL IV SCH (14:04)
[2017-06-01 17:31] VITALS: BP 138/72
[2017-06-01 22:00] VITALS: BP 135/63
[2017-06-02] MEDS: ACCU-CHEK COMFORT CURVE STRIP VI SCH ×4 (00:04→17:57)
[2017-06-02] MEDS: InsuLIN REG 1unit/0.01ml Soln (100units/ml) SC SCH ×4 (00:07→17:57)
[2017-06-02 05:07] VITALS: BP 140/54
[2017-06-02 05:56] LABS: Basophils # (auto) 0 uL; Basophils % (auto) 0.2 % (0.0-2.0); Eosinophils # (auto) 0.2 uL; Eosinophils % (auto) 2.1 % (0.0-7.0); Hematocrit 32.7 % (41.0-53.0); Lymphocytes # (auto) 1.2 uL; Lymphocytes % (auto) 11.4 % (10.0-50.0); Mean Corpuscular Hemoglobin 31.3 pg (28.0-32.0); Mean Corpuscular Hgb Conc. 33.7 g/dL (32.0-36.0); Mean Corpuscular Volume 92.9 fL (80.0-100.0); Monocytes # (auto) 0.5 uL; Monocytes % (auto) 5.2 % (0.0-12.0); Neutrophils # (auto) 8.4 uL; Neutrophils % (auto) 81.1 % (37.0-80.0); Platelet Count (auto) 346 10^3/uL (140-450); Red Blood Cells 3.52 10^6/uL (4.5-5.90); White Blood Cell 10.3 10^3/uL (4.4-10.8)
[2017-06-02 06:01] LABS: Red Cell Distribution Width 21.5 % (11.8-14.3)
[2017-06-02] MEDS: SODIUM CHLORIDE 0.9% 1,000 ML IV SCH ×2 (06:11→11:45)
[2017-06-02] MEDS: ceFAZolin 1GM/50ML 50 ML IV SCH (06:11)
[2017-06-02] MEDS: HYDROmorphone HCL 2 MG/ML VL IV PRN ×2 (06:12→21:20)
[2017-06-02] MEDS: LEVOTHYROXINE SODIUM 88 MCG TAB PO SCH (06:16)
[2017-06-02 08:00] VITALS: BP 146/66
[2017-06-02 08:02] VITALS: BP 146/66
[2017-06-02] MEDS: ENOXAPARIN SOD 40 MG/0.4 ML SYRINGE SC SCH ×2 (09:17→10:00)
[2017-06-02] MEDS: INSULIN DETEMIR(LEVEMIR) 1unit/0.01ml Soln (100units/ml) SC SCH ×2 (10:00→22:00)
[2017-06-02] MEDS: PANTOPRAZOLE 40 MG/10 ML VIAL IV SCH (11:14)
[2017-06-02 11:43] VITALS: BP 134/57
[2017-06-02] MEDS ORDERED: cefTRIAXone 1GM/10ml IVPUSH 10 ML IV ONE (11:45)
[2017-06-02 16:53] VITALS: BP 144/65
[2017-06-02 21:48] VITALS: BP 150/80
[2017-06-03] MEDS: SODIUM CHLORIDE 0.9% 1,000 ML IV SCH ×2 (01:05→14:25)
[2017-06-03 04:53] VITALS: BP 139/78
[2017-06-03] MEDS: ACCU-CHEK COMFORT CURVE STRIP VI SCH ×4 (06:00→17:49)
[2017-06-03] MEDS: InsuLIN REG 1unit/0.01ml Soln (100units/ml) SC SCH ×4 (06:00→17:48)
[2017-06-03] MEDS: HYDROmorphone HCL 2 MG/ML VL IV PRN ×2 (06:14→21:00)
[2017-06-03] MEDS: LEVOTHYROXINE SODIUM 88 MCG TAB PO SCH (06:37)
[2017-06-03 07:54] VITALS: BP 155/66
[2017-06-03 08:00] VITALS: BP 155/66
[2017-06-03] MEDS ORDERED: ENOXAPARIN SOD 40 MG/0.4 ML SYRINGE SC SCH (08:00)
[2017-06-03] MEDS: cefTRIAXone 1GM/10ml IVPUSH 10 ML IV SCH (09:00)
[2017-06-03] MEDS: INSULIN DETEMIR(LEVEMIR) 1unit/0.01ml Soln (100units/ml) SC SCH ×2 (10:00→22:23)
[2017-06-03] MEDS: PANTOPRAZOLE 40 MG/10 ML VIAL IV SCH (10:00)
[2017-06-03 11:33] VITALS: BP 134/66
[2017-06-03] MEDS ORDERED: ceFAZolin 1GM/50ML 100 ML IV ONE (13:36)
[2017-06-03] MEDS ORDERED: fentaNYL CITRATE 5 ML ONE (14:07)
[2017-06-03] MEDS ORDERED: HYDROmorphone HCL 2 MG/ML VL ONE ×2 (15:08→16:48)
[2017-06-03] MEDS ORDERED: TAMS0.4C36 PO (16:11)
[2017-06-03] MEDS ORDERED: ONDANSETRON HCL 4 MG/2 ML VIAL IV ONE (16:15)
[2017-06-03] MEDS ORDERED: ePHEDrine SULFATE 50 MG/ML AMP IV PRN (16:15)
[2017-06-03] MEDS ORDERED: hydrALAZINE HCL 20 MG/ML VL IV PRN (16:15)
[2017-06-03] MEDS ORDERED: HYDROmorphone HCL 2 MG/ML VL IV PRN ×2 (16:15→17:00)
[2017-06-03] MEDS ORDERED: ENOXAPARIN SOD 40 MG/0.4 ML SYRINGE SC ONE (17:15)
[2017-06-03 17:46] VITALS: BP 146/66
[2017-06-03] MEDS: HYDROcodone-ACET 5/325MG TAB PO PRN (17:46)
[2017-06-03] MEDS: ceFAZolin 1GM/50ML 50 ML IV SCH (18:21)
[2017-06-03 22:07] VITALS: BP 122/77
[2017-06-04] MEDS: ceFAZolin 1GM/50ML 50 ML IV SCH ×5 (00:37→23:59)
[2017-06-04] MEDS: HYDROmorphone HCL 2 MG/ML VL IV PRN ×4 (03:11→20:39)
[2017-06-04] MEDS: SODIUM CHLORIDE 0.9% 1,000 ML IV SCH (03:45)
[2017-06-04 05:30] VITALS: BP 116/52
[2017-06-04] MEDS: InsuLIN REG 1unit/0.01ml Soln (100units/ml) SC SCH ×4 (06:00→17:50)
[2017-06-04] MEDS: ACCU-CHEK COMFORT CURVE STRIP VI SCH ×5 (06:06→23:59)
[2017-06-04] MEDS: LEVOTHYROXINE SODIUM 88 MCG TAB PO SCH (06:12)
[2017-06-04 07:04] LABS: Basophils # (auto) 0 uL; Basophils % (auto) 0.2 % (0.0-2.0); Eosinophils # (auto) 0.2 uL; Hematocrit 30.6 % (41.0-53.0); Hemoglobin 10.2 g/dL (13.5-17.5); Lymphocytes # (auto) 1.1 uL; Lymphocytes % (auto) 9.6 % (10.0-50.0); Mean Corpuscular Hemoglobin 31.1 pg (28.0-32.0); Mean Corpuscular Hgb Conc. 33.3 g/dL (32.0-36.0); Mean Corpuscular Volume 93.3 fL (80.0-100.0); Monocytes # (auto) 0.5 uL; Monocytes % (auto) 4.6 % (0.0-12.0); Neutrophils # (auto) 9.4 uL; Neutrophils % (auto) 83.6 % (37.0-80.0); Nucleated Red Blood Cells % 0.1 %; Platelet Count (auto) 370 10^3/uL (140-450); Red Blood Cells 3.28 10^6/uL (4.5-5.90); White Blood Cell 11.2 10^3/uL (4.4-10.8)
[2017-06-04 07:13] LABS: Red Cell Distribution Width 22.3 % (11.8-14.3)
[2017-06-04 07:44] LABS: Potassium 3.9 mmol/L (3.5-5.1)
[2017-06-04 07:45] LABS: BUN/Creatinine Ratio 15.3
[2017-06-04 07:57] VITALS: BP 144/61
[2017-06-04] MEDS: cefTRIAXone 1GM/10ml IVPUSH 10 ML IV SCH (09:00)
[2017-06-04] MEDS: ENOXAPARIN SOD 40 MG/0.4 ML SYRINGE SC SCH (10:14)
[2017-06-04] MEDS: INSULIN DETEMIR(LEVEMIR) 1unit/0.01ml Soln (100units/ml) SC SCH ×2 (10:15→21:57)
[2017-06-04] MEDS: PANTOPRAZOLE 40 MG/10 ML VIAL IV SCH (10:15)
[2017-06-04 11:49] VITALS: BP 115/52
[2017-06-04 16:51] VITALS: BP 112/51
[2017-06-04 20:00] VITALS: BP 123/45
[2017-06-04 22:00] VITALS: BP 123/45
[2017-06-05] MEDS: HYDROcodone-ACET 5/325MG TAB PO PRN ×2 (01:11→23:41)
[2017-06-05] MEDS: LORazepam 0.5 MG TAB PO PRN (01:11)
[2017-06-05 05:00] VITALS: BP 125/62
[2017-06-05] MEDS: ACCU-CHEK COMFORT CURVE STRIP VI SCH ×4 (06:04→23:40)
[2017-06-05] MEDS: ceFAZolin 1GM/50ML 50 ML IV SCH ×3 (06:04→18:06)
[2017-06-05] MEDS: InsuLIN REG 1unit/0.01ml Soln (100units/ml) SC SCH ×5 (06:04→23:41)
[2017-06-05] MEDS: LEVOTHYROXINE SODIUM 88 MCG TAB PO SCH (06:36)
[2017-06-05 08:00] VITALS: BP 122/55
[2017-06-05 09:00] VITALS: BP 122/55
[2017-06-05] MEDS: PANTOPRAZOLE 40 MG TAB PO SCH (10:11)
[2017-06-05] MEDS: ENOXAPARIN SOD 40 MG/0.4 ML SYRINGE SC SCH (10:11)
[2017-06-05] MEDS: HYDROmorphone HCL 2 MG/ML VL IV PRN (10:11)
[2017-06-05] MEDS: cefTRIAXone 1GM/10ml IVPUSH 10 ML IV SCH (10:12)
[2017-06-05 10:21] LABS: Hematocrit 30.4 % (41.0-53.0); Hemoglobin 10.1 g/dL (13.5-17.5)
[2017-06-05] MEDS: INSULIN DETEMIR(LEVEMIR) 1unit/0.01ml Soln (100units/ml) SC SCH ×2 (10:31→21:36)
[2017-06-05] MEDS ORDERED: MORPHINE SULFATE 10 MG/ML INJ 1ML SDV IV PRN (11:45)
[2017-06-05] MEDS ORDERED: LORazepam 0.5 MG TAB PO PRN (11:45)
[2017-06-05] MEDS ORDERED: TEMAZEPAM 15 MG CAP PO PRN (11:45)
[2017-06-05 13:00] VITALS: BP 106/54
[2017-06-05 17:00] VITALS: BP 96/52
[2017-06-05 21:47] VITALS: BP 108/59
[2017-06-06 04:47] VITALS: BP 134/55
[2017-06-06] MEDS: ACCU-CHEK COMFORT CURVE STRIP VI SCH ×3 (05:35→17:52)
[2017-06-06] MEDS: InsuLIN REG 1unit/0.01ml Soln (100units/ml) SC SCH ×3 (05:36→17:52)
[2017-06-06] MEDS: LEVOTHYROXINE SODIUM 88 MCG TAB PO SCH (05:36)
[2017-06-06] MEDS: HYDROcodone-ACET 5/325MG TAB PO PRN ×2 (05:36→12:01)
[2017-06-06 08:00] VITALS: BP 112/53
[2017-06-06 08:29] LABS: Hematocrit 27.8 % (41.0-53.0); Hemoglobin 9.4 g/dL (13.5-17.5)
[2017-06-06 09:00] VITALS: BP 112/53
[2017-06-06] MEDS: PANTOPRAZOLE 40 MG TAB PO SCH (10:12)
[2017-06-06] MEDS: ENOXAPARIN SOD 40 MG/0.4 ML SYRINGE SC SCH (10:13)
[2017-06-06] MEDS: INSULIN DETEMIR(LEVEMIR) 1unit/0.01ml Soln (100units/ml) SC SCH ×2 (10:22→21:43)
[2017-06-06] MEDS: cefTRIAXone 1GM/10ml IVPUSH 10 ML IV SCH (11:59)
[2017-06-06 13:00] VITALS: BP 117/39
[2017-06-06] MEDS ORDERED: MILK OF MAGNESIA 30ML SUSP PO ONE (14:30)
[2017-06-06] MEDS: HYDROmorphone HCL 2 MG/ML VL IV PRN (15:58)
[2017-06-06 17:00] VITALS: BP 118/51
[2017-06-06] MEDS: MULTIPLE VITAMINS W/ MINERALS TAB PO SCH (17:31)
[2017-06-06] MEDS: PRO-STAT 64 30ML PO SCH (18:47)
[2017-06-06] MEDS: ASCORBIC ACID 500 MG TAB PO SCH (21:32)
[2017-06-06] MEDS: DOCUSATE SOD 100 MG CAP PO SCH (21:32)
[2017-06-06 22:45] VITALS: BP 116/76
[2017-06-07] MEDS: ACCU-CHEK COMFORT CURVE STRIP VI SCH ×4 (00:10→17:59)
[2017-06-07] MEDS: InsuLIN REG 1unit/0.01ml Soln (100units/ml) SC SCH ×4 (00:10→18:04)
[2017-06-07 05:42] LABS: Basophils # (auto) 0 uL; Basophils % (auto) 0.4 % (0.0-2.0); Eosinophils # (auto) 0.3 uL; Eosinophils % (auto) 3.8 % (0.0-7.0); Hematocrit 29.1 % (41.0-53.0); Hemoglobin 9.7 g/dL (13.5-17.5); Lymphocytes # (auto) 1.3 uL; Lymphocytes % (auto) 14.6 % (10.0-50.0); Mean Corpuscular Hgb Conc. 33.3 g/dL (32.0-36.0); Mean Corpuscular Volume 93.2 fL (80.0-100.0); Monocytes # (auto) 0.4 uL; Neutrophils % (auto) 77.2 % (37.0-80.0); Nucleated Red Blood Cells % 0.1 %; Platelet Count (auto) 423 10^3/uL (140-450); Red Blood Cells 3.12 10^6/uL (4.5-5.90); White Blood Cell 9.1 10^3/uL (4.4-10.8)
[2017-06-07 05:45] VITALS: BP 148/70
[2017-06-07 05:45] LABS: Red Cell Distribution Width 22.4 % (11.8-14.3)
[2017-06-07 06:06] LABS: BUN/Creatinine Ratio 16.9; Calcium 8.2 mg/dL (8.5-10.1); Potassium 3.3 mmol/L (3.5-5.1)
[2017-06-07] MEDS: LEVOTHYROXINE SODIUM 88 MCG TAB PO SCH (06:26)
[2017-06-07] MEDS: PRO-STAT 64 30ML PO SCH ×2 (08:13→18:04)
[2017-06-07] MEDS: HYDROcodone-ACET 5/325MG TAB PO PRN ×2 (08:52→20:30)
[2017-06-07 09:00] VITALS: BP 126/61
[2017-06-07] MEDS: HYDROmorphone HCL 2 MG/ML VL IV PRN ×3 (09:00→21:49)
[2017-06-07] MEDS: cefTRIAXone 1GM/10ml IVPUSH 10 ML IV SCH (09:11)
[2017-06-07] MEDS ORDERED: POTASSIUM CHL 20 Meq TABLET PO ONE (09:30)
[2017-06-07] MEDS: ASCORBIC ACID 500 MG TAB PO SCH ×2 (10:11→21:48)
[2017-06-07] MEDS: DOCUSATE SOD 100 MG CAP PO SCH ×2 (10:11→21:47)
[2017-06-07] MEDS: PANTOPRAZOLE 40 MG TAB PO SCH (10:12)
[2017-06-07] MEDS: ENOXAPARIN SOD 40 MG/0.4 ML SYRINGE SC SCH (10:12)
[2017-06-07] MEDS: MULTIPLE VITAMINS W/ MINERALS TAB PO SCH (10:12)
[2017-06-07] MEDS: INSULIN DETEMIR(LEVEMIR) 1unit/0.01ml Soln (100units/ml) SC SCH ×2 (10:13→21:48)
[2017-06-07 13:00] VITALS: BP 106/53
[2017-06-07 17:00] VITALS: BP 132/64
[2017-06-07] MEDS: LACTULOSE 20Gm/30ML SOLN PO PRN (21:50)
[2017-06-07 22:00] VITALS: BP 128/51
[2017-06-08] MEDS: InsuLIN REG 1unit/0.01ml Soln (100units/ml) SC SCH ×5 (00:36→23:59)
[2017-06-08] MEDS: ACCU-CHEK COMFORT CURVE STRIP VI SCH ×4 (00:36→17:13)
[2017-06-08] MEDS: HYDROcodone-ACET 5/325MG TAB PO PRN (00:40)
[2017-06-08 05:00] VITALS: BP 125/58
[2017-06-08] MEDS: LEVOTHYROXINE SODIUM 88 MCG TAB PO SCH (06:29)
[2017-06-08 07:20] LABS: Basophils # (auto) 0 uL; Basophils % (auto) 0.5 % (0.0-2.0); Eosinophils # (auto) 0.3 uL; Eosinophils % (auto) 3.5 % (0.0-7.0); Hematocrit 27.8 % (41.0-53.0); Hemoglobin 9.3 g/dL (13.5-17.5); Lymphocytes # (auto) 1.7 uL; Lymphocytes % (auto) 21.3 % (10.0-50.0); Mean Corpuscular Hemoglobin 31.3 pg (28.0-32.0); Mean Corpuscular Hgb Conc. 33.4 g/dL (32.0-36.0); Mean Corpuscular Volume 93.6 fL (80.0-100.0); Monocytes # (auto) 0.3 uL; Monocytes % (auto) 4.1 % (0.0-12.0); Neutrophils # (auto) 5.8 uL; Neutrophils % (auto) 70.6 % (37.0-80.0); Nucleated Red Blood Cells % 0.1 %; Platelet Count (auto) 432 10^3/uL (140-450); Red Blood Cells 2.97 10^6/uL (4.5-5.90); White Blood Cell 8.2 10^3/uL (4.4-10.8)
[2017-06-08 07:25] LABS: Red Cell Distribution Width 22.6 % (11.8-14.3)
[2017-06-08 07:26] LABS: Calcium 8.3 mg/dL (8.5-10.1); Potassium 3.7 mmol/L (3.5-5.1)
[2017-06-08] MEDS: PRO-STAT 64 30ML PO SCH ×2 (07:37→18:36)
[2017-06-08] MEDS: cefTRIAXone 1GM/10ml IVPUSH 10 ML IV SCH (08:14)
[2017-06-08 09:00] VITALS: BP 144/58
[2017-06-08] MEDS: DOCUSATE SOD 100 MG CAP PO SCH ×2 (10:54→22:06)
[2017-06-08] MEDS: PANTOPRAZOLE 40 MG TAB PO SCH (10:55)
[2017-06-08] MEDS: ASCORBIC ACID 500 MG TAB PO SCH ×2 (10:55→22:06)
[2017-06-08] MEDS: MULTIPLE VITAMINS W/ MINERALS TAB PO SCH (10:55)
[2017-06-08] MEDS: HYDROmorphone HCL 2 MG/ML VL IV PRN ×3 (10:56→22:07)
[2017-06-08] MEDS: ENOXAPARIN SOD 40 MG/0.4 ML SYRINGE SC SCH (10:56)
[2017-06-08] MEDS: INSULIN DETEMIR(LEVEMIR) 1unit/0.01ml Soln (100units/ml) SC SCH ×2 (10:59→22:07)
[2017-06-08 13:00] VITALS: BP 137/60
[2017-06-08 16:50] VITALS: BP 157/77
[2017-06-08 21:45] VITALS: BP 141/62
[2017-06-08] MEDS: LACTULOSE 20Gm/30ML SOLN PO PRN (22:07)
[2017-06-09 05:26] VITALS: BP 96/67
[2017-06-09] MEDS: InsuLIN REG 1unit/0.01ml Soln (100units/ml) SC SCH ×3 (06:00→17:44)
[2017-06-09] MEDS: ACCU-CHEK COMFORT CURVE STRIP VI SCH ×4 (06:24→17:44)
[2017-06-09] MEDS: LEVOTHYROXINE SODIUM 88 MCG TAB PO SCH (06:27)
[2017-06-09] MEDS: HYDROmorphone HCL 2 MG/ML VL IV PRN ×4 (06:28→21:11)
[2017-06-09 08:00] VITALS: BP 133/55
[2017-06-09] MEDS: PRO-STAT 64 30ML PO SCH ×2 (08:00→17:44)
[2017-06-09] MEDS: cefTRIAXone 1GM/10ml IVPUSH 10 ML IV SCH (10:50)
[2017-06-09] MEDS: DOCUSATE SOD 100 MG CAP PO SCH ×2 (10:50→21:58)
[2017-06-09] MEDS: PANTOPRAZOLE 40 MG TAB PO SCH (10:51)
[2017-06-09] MEDS: ENOXAPARIN SOD 40 MG/0.4 ML SYRINGE SC SCH (10:51)
[2017-06-09] MEDS: ASCORBIC ACID 500 MG TAB PO SCH ×2 (10:51→21:58)
[2017-06-09] MEDS: MULTIPLE VITAMINS W/ MINERALS TAB PO SCH (10:51)
[2017-06-09] MEDS: INSULIN DETEMIR(LEVEMIR) 1unit/0.01ml Soln (100units/ml) SC SCH ×2 (10:53→21:59)
[2017-06-09 12:00] VITALS: BP 131/54
[2017-06-09 17:16] VITALS: BP 111/49
[2017-06-09 20:00] VITALS: BP 119/50
[2017-06-09 22:00] VITALS: BP 119/50
[2017-06-10] MEDS: ACCU-CHEK COMFORT CURVE STRIP VI SCH ×3 (00:15→12:22)
[2017-06-10] MEDS: InsuLIN REG 1unit/0.01ml Soln (100units/ml) SC SCH ×3 (00:15→12:22)
[2017-06-10 05:00] VITALS: BP 145/64
[2017-06-10] MEDS: LEVOTHYROXINE SODIUM 88 MCG TAB PO SCH (06:37)
[2017-06-10 07:53] VITALS: BP 153/61
[2017-06-10] MEDS: HYDROmorphone HCL 2 MG/ML VL IV PRN ×2 (08:46→15:57)
[2017-06-10] MEDS: PRO-STAT 64 30ML PO SCH (10:35)
[2017-06-10] MEDS: cefTRIAXone 1GM/10ml IVPUSH 10 ML IV SCH (10:35)
[2017-06-10] MEDS: DOCUSATE SOD 100 MG CAP PO SCH (10:36)
[2017-06-10] MEDS: ENOXAPARIN SOD 40 MG/0.4 ML SYRINGE SC SCH (10:36)
[2017-06-10] MEDS: MULTIPLE VITAMINS W/ MINERALS TAB PO SCH (10:36)
[2017-06-10] MEDS: INSULIN DETEMIR(LEVEMIR) 1unit/0.01ml Soln (100units/ml) SC SCH (10:36)
[2017-06-10] MEDS: PANTOPRAZOLE 40 MG TAB PO SCH (10:36)
[2017-06-10] MEDS: ASCORBIC ACID 500 MG TAB PO SCH (10:36)
[2017-06-10 12:00] VITALS: BP 132/88
[2017-06-10 13:04] LABS: Hematocrit 29.9 % (41.0-53.0); Hemoglobin 9.8 g/dL (13.5-17.5)
[2017-06-10 16:47] VITALS: BP 147/68
[2017-08-22] MEDS ORDERED: CEFD300C2 PO (09:19)
== END 2017-06-10 18:19 | DRG 469 ==
LOC: ER 09:04 → EDBD 09:04 → TELE 09:05 → TELE-EAST 19:39 → EAST 06-05 20:28
PROVIDERS: ADMIT Internal Medicine; ATTEND Internal Medicine
PROC: 0MBM0ZZ Excision of Left Hip Bursa and Ligament, Open Approach (ICD-10-PCS; 2017-06-01)
PROC: 0SRS0JA Replacement of Left Hip Joint, Femoral Surface with Synthetic Substitute, Uncemented, Open Approach (ICD-10-PCS; principal; 2017-06-01 11:58)
DX: M80.052A Age-related osteoporosis with current pathological fracture, left femur, initial encounter for fracture (principal); R65.11 Systemic inflammatory response syndrome (SIRS) of non-infectious origin with acute organ dysfunction; E11.21 Type 2 diabetes mellitus with diabetic nephropathy; Z68.41 Body mass index [BMI] 40.0-44.9, adult; L02.416 Cutaneous abscess of left lower limb; N39.0 Urinary tract infection, site not specified; E87.1 Hypo-osmolality and hyponatremia; E66.01 Morbid (severe) obesity due to excess calories; E11.40 Type 2 diabetes mellitus with diabetic neuropathy, unspecified; N18.3 Chronic kidney disease, stage 3 (moderate); D63.8 Anemia in other chronic diseases classified elsewhere; B96.20 Unspecified Escherichia coli [E. coli] as the cause of diseases classified elsewhere; E03.9 Hypothyroidism, unspecified; E11.22 Type 2 diabetes mellitus with diabetic chronic kidney disease; E11.65 Type 2 diabetes mellitus with hyperglycemia; E78.5 Hyperlipidemia, unspecified; Z53.8 Procedure and treatment not carried out for other reasons; E87.5 Hyperkalemia; W19.XXXA Unspecified fall, initial encounter; I13.10 Hypertensive heart and chronic kidney disease without heart failure, with stage 1 through stage 4 chronic kidney disease, or unspecified chronic kidney disease; J44.9 Chronic obstructive pulmonary disease, unspecified; K43.9 Ventral hernia without obstruction or gangrene; M70.60 Trochanteric bursitis, unspecified hip; N50.89 Other specified disorders of the male genital organs; Z82.0 Family history of epilepsy and other diseases of the nervous system; Z82.49 Family history of ischemic heart disease and other diseases of the circulatory system; Z85.51 Personal history of malignant neoplasm of bladder; Z83.3 Family history of diabetes mellitus; Y93.89 Activity, other specified; Y92.89 Other specified places as the place of occurrence of the external cause; Y99.8 Other external cause status
CPT/HCPCS: 36415; 71045; 73501; 73502; 80048; 80053; 81001; 82962; 83036; 83735; 84132; 85014; 85018; 85025; 85610; 85730; 86850; 86900; 86901; 87086; 87088; 87186; 93005; 94761; 96374; 96375; 97110; 97116; 97163; 97530; C9113; J0690; J1815; J2405; J2704

== ENCOUNTER → 2017-08-11 | Outpatient (CLI) | payer OTHER ==
[~2017-08-11] MED LIST changes: +CEFD300C2 PO; +TAMS0.4C36 PO
[2017-08-11 15:09] LABS: Basophils # (auto) 0.1 uL; Basophils % (auto) 0.8 % (0.0-2.0); Eosinophils # (auto) 0.2 uL; Eosinophils % (auto) 2.2 % (0.0-7.0); Hematocrit 41.5 % (41.0-53.0); Hemoglobin 13.5 g/dL (13.5-17.5); Lymphocytes # (auto) 2.1 uL; Lymphocytes % (auto) 18.6 % (10.0-50.0); Mean Corpuscular Hemoglobin 28.9 pg (28.0-32.0); Mean Corpuscular Hgb Conc. 32.6 g/dL (32.0-36.0); Mean Corpuscular Volume 88.6 fL (80.0-100.0); Monocytes # (auto) 0.6 uL; Monocytes % (auto) 5.4 % (0.0-12.0); Neutrophils # (auto) 8.1 uL; Nucleated Red Blood Cells % 0.1 %; Platelet Count (auto) 446 10^3/uL (140-450); Red Blood Cells 4.69 10^6/uL (4.5-5.90); Red Cell Distribution Width 16.5 % (11.8-14.3); White Blood Cell 11.1 10^3/uL (4.4-10.8)
[2017-08-11 15:40] LABS: Albumin 2.8 g/dL (3.4-5.0); BUN/Creatinine Ratio 10.7; Bilirubin, Total 0.4 mg/dL (0.2-1.0); Calcium 9.4 mg/dL (8.5-10.1); Potassium 4.4 mmol/L (3.5-5.1); Total Protein 7.6 g/dL (6.4-8.2)
[2017-08-12 11:38] LABS: Urine Bacteria MOD /hpf (None Seen); Urine Blood TRACE /uL (Negative); Urine WBC 708 /hpf (0 - 3); Urine WBC Clumps PRESENT /hpf (None Seen)
== END | disposition home or self-care (01) ==
LOC: LAB 14:50
PROVIDERS: ATTEND Internal Medicine
DX: C67.9 Malignant neoplasm of bladder, unspecified (principal); E11.42 Type 2 diabetes mellitus with diabetic polyneuropathy
CPT/HCPCS: 36415; 80053; 81001; 85025

== ENCOUNTER 2017-12-31 07:01 | Inpatient (IN) | payer OTHER ==
[2017-12-29 12:20] LABS: Basophils # (auto) 0.1 uL; Eosinophils # (auto) 0.3 uL; Hemoglobin 10.4 g/dL (13.5-17.5); Mean Corpuscular Volume 79.2 fL (80.0-100.0); Monocytes # (auto) 0.6 uL; White Blood Cell 9.2 10^3/uL (4.4-10.8)
[2017-12-29 12:24] LABS: Eosinophils % (auto) 3.4 % (0.0-7.0); Lymphocytes % (auto) 22.2 % (10.0-50.0); Mean Corpuscular Hemoglobin 24.9 pg (28.0-32.0); Mean Corpuscular Hgb Conc. 31.5 g/dL (32.0-36.0); Neutrophils # (auto) 6.1 uL; Neutrophils % (auto) 66.4 % (37.0-80.0); Platelet Count (auto) 483 10^3/uL (140-450); Red Blood Cells 4.17 10^6/uL (4.5-5.90); Red Cell Distribution Width 17.4 % (11.8-14.3)
[2017-12-29 12:27] LABS: INR 0.9 (0.9-1.15); Partial Thromboplastin Time 27.6 sec (23.78-33.04); Prothrombin Time 9.7 sec (9.27-12.13)
[2017-12-29 12:59] LABS: BUN/Creatinine Ratio 11.9; Potassium 5.4 mmol/L (3.5-5.1)
[2017-12-29 13:00] LABS: Albumin 3.5 g/dL (3.4-5.0); Bilirubin, Total 0.3 mg/dL (0.2-1.0); Calcium 9.4 mg/dL (8.5-10.1); Total Protein 8.2 g/dL (6.4-8.2)
[~2017-12-31] VITALS: Ht 172.7 cm; Wt 117.8 kg
[~2017-12-31 07:01] MED LIST changes: -ALBUAER3 PO; -CEFD300C2 PO; +FURO20TA3 PO; -TAMS0.4C36 PO
[2017-12-31] MEDS ORDERED: ceFAZolin 1GM/50ML 50 ML IV ONE (07:25)
[2017-12-31] MEDS ORDERED: fentaNYL CITRATE 100 MCG/2 ML VL ONE ×2 (07:51→08:50)
[2017-12-31] MEDS ORDERED: PROPOFOL 10 MG/ML 20 ML IV ONE (07:51)
[2017-12-31] MEDS ORDERED: SODIUM CHLORIDE LOCK 10 ML ONE (07:51)
[2017-12-31] MEDS ORDERED: MIDAZOLAM HCL 1MG/1ML-2 ML VIAL ONE (07:51)
[2017-12-31] MEDS ORDERED: ONDANSETRON HCL 4 MG/2 ML VIAL ONE (07:51)
[2017-12-31] MEDS ORDERED: LIDOCAINE W/ EPINEPHRINE 1% 20ML VIAL ONE (08:26)
[2017-12-31] MEDS ORDERED: METOCLOPRAMIDE HCL 5MG/ml INJ 2ml VIAL IV ONE (08:45)
[2017-12-31] MEDS ORDERED: ACCU-CHEK COMFORT CURVE STRIP VI ONE (08:45)
[2017-12-31] MEDS ORDERED: ROCURONIUM 10MG/ML 10ML VIAL IV ONE (08:50)
[2017-12-31] MEDS ORDERED: SUCCINYLCHOLINE CHLORIDE 20 MG/ML 10ML VIAL IV ONE (08:52)
[2017-12-31] MEDS ORDERED: fentaNYL CITRATE 100 MCG/2 ML VL IV ONE (09:00)
[2017-12-31] MEDS ORDERED: HYDROmorphone HCL 2 MG/ML VL IV PRN (10:15)
[2017-12-31] MEDS ORDERED: ONDANSETRON HCL 4 MG/2 ML VIAL IV PRN ×2 (10:15→13:30)
[2017-12-31 13:00] VITALS: BP 118/62
[2017-12-31] MEDS ORDERED: DEXTROSE (50%) 50ML SYRG IV PRN (13:30)
[2017-12-31] MEDS ORDERED: HYDROcodone-ACET 5/325MG TAB PO PRN (13:30)
[2017-12-31] MEDS ORDERED: DOCUSATE SOD 100 MG CAP PO PRN (13:30)
[2017-12-31] MEDS ORDERED: ALPRAZolam 0.5 MG TAB PO PRN (13:30)
[2017-12-31] MEDS: ceFAZolin 1GM/50ML 50 ML IV SCH ×2 (14:35→21:49)
[2017-12-31] MEDS: MORPHINE SULF INJ 2 MG/ML SYRINGE 1ML IV PRN (15:12)
[2017-12-31 16:44] VITALS: BP 124/56
[2017-12-31] MEDS: InsuLIN REG 1unit/0.01ml Soln (100units/ml) SC SCH ×3 (17:00→21:55)
[2017-12-31] MEDS: ACCU-CHEK COMFORT CURVE STRIP VI SCH ×2 (18:23→21:49)
[2017-12-31] MEDS: IPRATROPIUM BROM 0.5 MG/2.5ML INH SOL NEB SCH (19:08)
[2017-12-31] MEDS: ALBUTEROL SULF 2.5 MG/0.5ML(0.5%) NEB SOLN NEB SCH (19:08)
[2017-12-31 22:00] VITALS: BP 119/55
[2018-01-01 01:38] VITALS: BP 119/55
[2018-01-01] MEDS: ALBUTEROL SULF 2.5 MG/0.5ML(0.5%) NEB SOLN NEB SCH ×4 (01:45→18:21)
[2018-01-01] MEDS: IPRATROPIUM BROM 0.5 MG/2.5ML INH SOL NEB SCH ×4 (01:45→18:21)
[2018-01-01 05:00] VITALS: BP 130/80
[2018-01-01 05:47] LABS: Basophils # (auto) 0.1 uL; Basophils % (auto) 0.6 % (0.0-2.0); Eosinophils # (auto) 0.3 uL; Lymphocytes # (auto) 1.6 uL; Neutrophils # (auto) 7.5 uL
[2018-01-01 05:50] LABS: Eosinophils % (auto) 2.8 % (0.0-7.0); Hematocrit 26.1 % (41.0-53.0); Hemoglobin 8.6 g/dL (13.5-17.5); Mean Corpuscular Hgb Conc. 32.9 g/dL (32.0-36.0); Mean Corpuscular Volume 78.9 fL (80.0-100.0); Monocytes # (auto) 0.5 uL; Monocytes % (auto) 5.3 % (0.0-12.0); Neutrophils % (auto) 75.3 % (37.0-80.0); Platelet Count (auto) 392 10^3/uL (140-450); Red Blood Cells 3.31 10^6/uL (4.5-5.90); Red Cell Distribution Width 17.3 % (11.8-14.3)
[2018-01-01 06:07] LABS: BUN/Creatinine Ratio 15.8; Calcium 8.6 mg/dL (8.5-10.1)
[2018-01-01] MEDS: ACCU-CHEK COMFORT CURVE STRIP VI SCH ×4 (06:13→21:09)
[2018-01-01] MEDS: InsuLIN REG 1unit/0.01ml Soln (100units/ml) SC SCH ×4 (06:13→21:09)
[2018-01-01 06:22] LABS: Potassium 5.7 mmol/L (3.5-5.1)
[2018-01-01] MEDS: ceFAZolin 1GM/50ML 50 ML IV SCH (06:30)
[2018-01-01] MEDS: LEVOTHYROXINE SODIUM 88 MCG TAB PO SCH (06:30)
[2018-01-01 08:38] VITALS: BP 114/52
[2018-01-01] MEDS ORDERED: ENOXAPARIN SOD 40 MG/0.4 ML SYRINGE SC SCH (10:00)
[2018-01-01] MEDS ORDERED: cefTRIAXone 1GM/10ml IVPUSH 10 ML IV ONE (11:45)
[2018-01-01 12:30] VITALS: BP 109/52
[2018-01-01 16:28] VITALS: BP 123/72
[2018-01-01] MEDS: APIXABAN 5 MG TAB PO SCH (21:08)
[2018-01-01] MEDS: ASCORBIC ACID 500 MG TAB PO SCH (21:08)
[2018-01-01 21:33] VITALS: BP 127/61
[2018-01-02 05:10] VITALS: BP 153/68
[2018-01-02 05:42] LABS: Basophils # (auto) 0.1 uL; Eosinophils # (auto) 0.3 uL; Eosinophils % (auto) 3.1 % (0.0-7.0); Monocytes # (auto) 0.6 uL; Neutrophils # (auto) 5.9 uL; Neutrophils % (auto) 69.7 % (37.0-80.0)
[2018-01-02 05:45] LABS: Basophils % (auto) 0.6 % (0.0-2.0); Hematocrit 26.3 % (41.0-53.0); Hemoglobin 8.5 g/dL (13.5-17.5); Lymphocytes # (auto) 1.6 uL; Lymphocytes % (auto) 19.5 % (10.0-50.0); Mean Corpuscular Hemoglobin 25.5 pg (28.0-32.0); Mean Corpuscular Hgb Conc. 32.5 g/dL (32.0-36.0); Mean Corpuscular Volume 78.6 fL (80.0-100.0); Monocytes % (auto) 7.1 % (0.0-12.0); Nucleated Red Blood Cells % 0.1 %; Platelet Count (auto) 404 10^3/uL (140-450); Potassium 5.4 mmol/L (3.5-5.1); Red Blood Cells 3.35 10^6/uL (4.5-5.90); White Blood Cell 8.4 10^3/uL (4.4-10.8)
[2018-01-02 05:48] LABS: BUN/Creatinine Ratio 14.4
[2018-01-02] MEDS: ACCU-CHEK COMFORT CURVE STRIP VI SCH ×4 (06:18→22:01)
[2018-01-02] MEDS: InsuLIN REG 1unit/0.01ml Soln (100units/ml) SC SCH ×4 (06:18→22:01)
[2018-01-02] MEDS: LEVOTHYROXINE SODIUM 88 MCG TAB PO SCH (06:18)
[2018-01-02] MEDS: ALBUTEROL SULF 2.5 MG/0.5ML(0.5%) NEB SOLN NEB SCH ×4 (07:02→18:39)
[2018-01-02] MEDS: IPRATROPIUM BROM 0.5 MG/2.5ML INH SOL NEB SCH ×4 (07:02→18:39)
[2018-01-02 08:30] VITALS: BP 132/55
[2018-01-02] MEDS: cefTRIAXone 1GM/10ml IVPUSH 10 ML IV SCH (08:53)
[2018-01-02] MEDS: APIXABAN 5 MG TAB PO SCH ×2 (09:46→22:00)
[2018-01-02] MEDS: ASCORBIC ACID 500 MG TAB PO SCH ×2 (09:47→22:01)
[2018-01-02] MEDS: MULTIPLE VITAMINS W/ MINERALS TAB PO SCH (09:47)
[2018-01-02 12:30] VITALS: BP 137/68
[2018-01-02 16:32] VITALS: BP 122/61
[2018-01-02 22:00] VITALS: BP 115/55
[2018-01-03 04:42] VITALS: BP 120/55
[2018-01-03 05:51] LABS: Hematocrit 27.8 % (41.0-53.0)
[2018-01-03] MEDS: ALBUTEROL SULF 2.5 MG/0.5ML(0.5%) NEB SOLN NEB SCH ×4 (05:58→18:34)
[2018-01-03] MEDS: IPRATROPIUM BROM 0.5 MG/2.5ML INH SOL NEB SCH ×4 (05:58→18:34)
[2018-01-03 06:19] LABS: BUN/Creatinine Ratio 15.9; Potassium 5.4 mmol/L (3.5-5.1)
[2018-01-03] MEDS: ACCU-CHEK COMFORT CURVE STRIP VI SCH ×4 (06:38→21:19)
[2018-01-03] MEDS: InsuLIN REG 1unit/0.01ml Soln (100units/ml) SC SCH ×4 (06:38→21:19)
[2018-01-03] MEDS: LEVOTHYROXINE SODIUM 88 MCG TAB PO SCH (06:39)
[2018-01-03 08:53] VITALS: BP 136/52
[2018-01-03] MEDS: APIXABAN 5 MG TAB PO SCH ×2 (09:46→21:18)
[2018-01-03] MEDS: cefTRIAXone 1GM/10ml IVPUSH 10 ML IV SCH (09:46)
[2018-01-03] MEDS: MULTIPLE VITAMINS W/ MINERALS TAB PO SCH (09:46)
[2018-01-03] MEDS: ASCORBIC ACID 500 MG TAB PO SCH ×2 (09:46→21:18)
[2018-01-03] MEDS: MORPHINE SULF INJ 2 MG/ML SYRINGE 1ML IV PRN (10:57)
[2018-01-03 11:57] VITALS: BP 127/57
[2018-01-03] MEDS ORDERED: ERTAPENEM SOD INJ 1 GM in SODIUM CHL 0.9% 50 ML IV ONE (12:00)
[2018-01-03] MEDS ORDERED: HYDROcodone-ACET 5/325MG TAB PO PRN (12:00)
[2018-01-03] MEDS ORDERED: MORPHINE SULF INJ 2 MG/ML SYRINGE 1ML IV PRN (12:00)
[2018-01-03 17:00] VITALS: BP 110/53
[2018-01-03 22:00] VITALS: BP 116/54
[2018-01-04 00:20] VITALS: BP 116/54
[2018-01-04 05:00] VITALS: BP 113/57
[2018-01-04 05:41] LABS: BUN/Creatinine Ratio 17.2; Calcium 9.1 mg/dL (8.5-10.1); Potassium 5.3 mmol/L (3.5-5.1)
[2018-01-04] MEDS: LEVOTHYROXINE SODIUM 88 MCG TAB PO SCH (06:24)
[2018-01-04] MEDS: ACCU-CHEK COMFORT CURVE STRIP VI SCH ×4 (06:24→21:31)
[2018-01-04] MEDS: InsuLIN REG 1unit/0.01ml Soln (100units/ml) SC SCH ×4 (06:24→21:30)
[2018-01-04] MEDS: IPRATROPIUM BROM 0.5 MG/2.5ML INH SOL NEB SCH ×4 (06:38→19:23)
[2018-01-04] MEDS: ALBUTEROL SULF 2.5 MG/0.5ML(0.5%) NEB SOLN NEB SCH ×4 (06:38→19:23)
[2018-01-04 08:02] VITALS: BP 119/58
[2018-01-04] MEDS: ASCORBIC ACID 500 MG TAB PO SCH ×2 (10:23→21:30)
[2018-01-04] MEDS: APIXABAN 5 MG TAB PO SCH ×2 (10:23→21:30)
[2018-01-04] MEDS: MULTIPLE VITAMINS W/ MINERALS TAB PO SCH (10:23)
[2018-01-04] MEDS: ERTAPENEM SOD INJ 1 GM in SODIUM CHL 0.9% 50 ML IV SCH (10:23)
[2018-01-04] MEDS ORDERED: SODIUM POLYSTYRENE SULF 15GM/60ML SUSP PO ONE (10:45)
[2018-01-04 12:26] VITALS: BP 127/65
[2018-01-04 17:14] VITALS: BP 108/56
[2018-01-04 21:51] VITALS: BP 121/55
[2018-01-05 05:00] VITALS: BP 124/60
[2018-01-05 05:37] LABS: Basophils # (auto) 0.1 uL; Eosinophils # (auto) 0.4 uL; Eosinophils % (auto) 4.3 % (0.0-7.0); Hemoglobin 8.9 g/dL (13.5-17.5); Monocytes # (auto) 0.5 uL
[2018-01-05 05:39] LABS: Basophils % (auto) 0.9 % (0.0-2.0); Lymphocytes % (auto) 22.7 % (10.0-50.0); Mean Corpuscular Hgb Conc. 33.1 g/dL (32.0-36.0); Mean Corpuscular Volume 78.4 fL (80.0-100.0); Neutrophils # (auto) 5.8 uL; Neutrophils % (auto) 66.1 % (37.0-80.0); Nucleated Red Blood Cells % 0.1 %; Platelet Count (auto) 420 10^3/uL (140-450); Red Blood Cells 3.44 10^6/uL (4.5-5.90); White Blood Cell 8.7 10^3/uL (4.4-10.8)
[2018-01-05 05:55] LABS: BUN/Creatinine Ratio 18.2; Calcium 8.7 mg/dL (8.5-10.1); Magnesium 1.9 mg/dL (1.6-2.6); Potassium 4.8 mmol/L (3.5-5.1)
[2018-01-05] MEDS: ACCU-CHEK COMFORT CURVE STRIP VI SCH ×2 (06:38→11:30)
[2018-01-05] MEDS: LEVOTHYROXINE SODIUM 88 MCG TAB PO SCH (06:38)
[2018-01-05] MEDS: InsuLIN REG 1unit/0.01ml Soln (100units/ml) SC SCH ×2 (06:38→12:31)
[2018-01-05] MEDS: ALBUTEROL SULF 2.5 MG/0.5ML(0.5%) NEB SOLN NEB SCH ×3 (06:48→11:17)
[2018-01-05] MEDS: IPRATROPIUM BROM 0.5 MG/2.5ML INH SOL NEB SCH ×3 (06:48→11:17)
[2018-01-05 09:00] VITALS: BP 131/62
[2018-01-05] MEDS: ASCORBIC ACID 500 MG TAB PO SCH (10:32)
[2018-01-05] MEDS: APIXABAN 5 MG TAB PO SCH (10:32)
[2018-01-05] MEDS: MULTIPLE VITAMINS W/ MINERALS TAB PO SCH (10:32)
[2018-01-05] MEDS: ERTAPENEM SOD INJ 1 GM in SODIUM CHL 0.9% 50 ML IV SCH (10:32)
[2018-01-05 13:00] VITALS: BP 105/54
[2018-01-05 17:00] VITALS: BP 131/69
[2018-01-05 17:11] VITALS: BP 105/54
== END 2018-01-05 18:00 | disposition home or self-care (01) | DRG 857 ==
LOC: SUR 07:01 → EAST 07:02
PROVIDERS: ADMIT Surgery; ATTEND Internal Medicine
PROC: 0JBB0ZZ Excision of Perineum Subcutaneous Tissue and Fascia, Open Approach (ICD-10-PCS; 2017-12-31)
PROC: 0JBM0ZZ Excision of Left Upper Leg Subcutaneous Tissue and Fascia, Open Approach (ICD-10-PCS; principal; 2017-12-31 08:52)
DX: T81.4XXA Infection following a procedure, initial encounter (principal); N13.8 Other obstructive and reflux uropathy; I42.9 Cardiomyopathy, unspecified; I13.0 Hypertensive heart and chronic kidney disease with heart failure and stage 1 through stage 4 chronic kidney disease, or unspecified chronic kidney disease; I50.22 Chronic systolic (congestive) heart failure; N17.9 Acute kidney failure, unspecified; N50.89 Other specified disorders of the male genital organs; B96.20 Unspecified Escherichia coli [E. coli] as the cause of diseases classified elsewhere; Y83.8 Other surgical procedures as the cause of abnormal reaction of the patient, or of later complication, without mention of misadventure at the time of the procedure; E03.9 Hypothyroidism, unspecified; E11.21 Type 2 diabetes mellitus with diabetic nephropathy; G89.29 Other chronic pain; E11.42 Type 2 diabetes mellitus with diabetic polyneuropathy; E78.00 Pure hypercholesterolemia, unspecified; E87.5 Hyperkalemia; E11.22 Type 2 diabetes mellitus with diabetic chronic kidney disease; E66.01 Morbid (severe) obesity due to excess calories; E78.5 Hyperlipidemia, unspecified; J44.9 Chronic obstructive pulmonary disease, unspecified; N18.3 Chronic kidney disease, stage 3 (moderate); N32.0 Bladder-neck obstruction; N40.1 Benign prostatic hyperplasia with lower urinary tract symptoms; Z82.0 Family history of epilepsy and other diseases of the nervous system; Z82.49 Family history of ischemic heart disease and other diseases of the circulatory system; Z83.3 Family history of diabetes mellitus; Y92.89 Other specified places as the place of occurrence of the external cause; Z85.51 Personal history of malignant neoplasm of bladder; Z86.711 Personal history of pulmonary embolism; Z86.718 Personal history of other venous thrombosis and embolism; Z81.8 Family history of other mental and behavioral disorders; Z79.899 Other long term (current) drug therapy; Z68.39 Body mass index [BMI] 39.0-39.9, adult
CPT/HCPCS: 36415; 80048; 80053; 82962; 83735; 84132; 84443; 85014; 85018; 85025; 85610; 85730; 87070; 87075; 87077; 87186; 87205; 94640; 97110; 97116; 97163; 97530; J0330; J0690; J0696; J1335; J1815; J2250; J2405; J2704

== ENCOUNTER 2018-02-09 07:07 | Day surgery (SDC) | payer OTHER ==
[2018-02-06 11:29] LABS: Urine Amorphous Crystal FEW /hpf (None Seen); Urine Bacteria MOD /hpf (None Seen); Urine Blood Negative /uL (Negative); Urine Specific Gravity 1.016 (1.001-1.035); Urine WBC 37 /hpf (0 - 3); Urine WBC Clumps PRESENT /hpf (None Seen)
[2018-02-06 11:33] LABS: Basophils # (auto) 0.1 uL; Eosinophils # (auto) 0.4 uL; Eosinophils % (auto) 3.6 % (0.0-7.0); Hemoglobin 9.6 g/dL (13.5-17.5); Lymphocytes # (auto) 1.8 uL; Monocytes # (auto) 0.6 uL; Monocytes % (auto) 5.2 % (0.0-12.0)
[2018-02-06 11:34] LABS: Basophils % (auto) 0.6 % (0.0-2.0); Lymphocytes % (auto) 15.8 % (10.0-50.0); Mean Corpuscular Hemoglobin 22.7 pg (28.0-32.0); Mean Corpuscular Hgb Conc. 30.9 g/dL (32.0-36.0); Mean Corpuscular Volume 73.5 fL (80.0-100.0); Neutrophils # (auto) 8.7 uL; Neutrophils % (auto) 74.8 % (37.0-80.0); Platelet Count (auto) 456 10^3/uL (140-450); Red Blood Cells 4.22 10^6/uL (4.5-5.90); Red Cell Distribution Width 17.3 % (11.8-14.3); White Blood Cell 11.6 10^3/uL (4.4-10.8)
[2018-02-06 11:42] LABS: Albumin 3.1 g/dL (3.4-5.0); BUN/Creatinine Ratio 12.4; Bilirubin, Total 0.3 mg/dL (0.2-1.0); Calcium 8.7 mg/dL (8.5-10.1); Potassium 4.2 mmol/L (3.5-5.1); Total Protein 7.3 g/dL (6.4-8.2)
[2018-02-06 11:57] LABS: INR 0.92 (0.9-1.15); Partial Thromboplastin Time 26.3 sec (23.78-33.04); Prothrombin Time 9.9 sec (9.27-12.13)
[~2018-02-09] VITALS: Ht 172.7 cm; Wt 113.4 kg
[2018-02-09] MEDS ORDERED: CIPROFLOXACIN 400MG/200ML 200 ML IV ONE (07:47)
[2018-02-09] MEDS ORDERED: MIDAZOLAM HCL 1MG/1ML-2 ML VIAL ONE (08:06)
[2018-02-09] MEDS ORDERED: fentaNYL CITRATE 100 MCG/2 ML VL ONE (08:06)
[2018-02-09] MEDS ORDERED: ROCURONIUM 10MG/ML 10ML VIAL IV ONE (08:06)
[2018-02-09] MEDS ORDERED: SODIUM CHLORIDE LOCK 20 ML ONE (08:07)
[2018-02-09] MEDS ORDERED: PROPOFOL 10 MG/ML 20 ML IV ONE (08:07)
[2018-02-09] MEDS ORDERED: METOCLOPRAMIDE HCL 5MG/ml INJ 2ml VIAL ONE (08:07)
[2018-02-09] MEDS ORDERED: diphenhdrAMINE HCL 50 MG/1 ML VL IV ONE (10:33)
[2018-02-09] MEDS ORDERED: ONDANSETRON HCL 4 MG/2 ML VIAL IV ONE (10:33)
[2018-02-09] MEDS ORDERED: SUCCINYLCHOLINE CHLORIDE 20 MG/ML 10ML VIAL IV ONE (10:33)
[2018-02-09] MEDS ORDERED: METOCLOPRAMIDE HCL 5MG/ml INJ 2ml VIAL IV ONE (11:15)
[2018-02-09] MEDS ORDERED: ACCU-CHEK COMFORT CURVE STRIP VI ONE (11:15)
[2018-02-09] MEDS ORDERED: FAMOTIDINE (10MG/ML) 2ML VL IV ONE ×2 (11:31→11:45)
[2018-02-09] MEDS ORDERED: fentaNYL CITRATE 100 MCG/2 ML VL IV ONE (12:00)
[2018-02-09 13:00] VITALS: BP 145/67
== END 2018-02-09 13:00 | disposition home or self-care (01) ==
LOC: SUR 07:07
PROVIDERS: ATTEND Urology
DX: D29.1 Benign neoplasm of prostate (principal); E66.9 Obesity, unspecified; J44.9 Chronic obstructive pulmonary disease, unspecified; E11.22 Type 2 diabetes mellitus with diabetic chronic kidney disease; I13.0 Hypertensive heart and chronic kidney disease with heart failure and stage 1 through stage 4 chronic kidney disease, or unspecified chronic kidney disease; N18.3 Chronic kidney disease, stage 3 (moderate); E11.40 Type 2 diabetes mellitus with diabetic neuropathy, unspecified; D63.1 Anemia in chronic kidney disease; E03.9 Hypothyroidism, unspecified; I82.402 Acute embolism and thrombosis of unspecified deep veins of left lower extremity; E11.319 Type 2 diabetes mellitus with unspecified diabetic retinopathy without macular edema; Z79.84 Long term (current) use of oral hypoglycemic drugs; Z68.38 Body mass index [BMI] 38.0-38.9, adult; Z86.73 Personal history of transient ischemic attack (TIA), and cerebral infarction without residual deficits; Z79.899 Other long term (current) drug therapy; Z98.890 Other specified postprocedural states; Z83.3 Family history of diabetes mellitus; Z82.49 Family history of ischemic heart disease and other diseases of the circulatory system; Z84.89 Family history of other specified conditions
CPT/HCPCS: 36415; 80053; 81001; 82962; 85025; 85610; 85730; J0330; J2250; J2405; J2704; J3490

== ENCOUNTER → 2018-02-20 | Outpatient (CLI) | payer OTHER ==
[2018-02-20 13:06] LABS: Urine Bacteria MANY /hpf (None Seen); Urine Blood 2+ /uL (Negative); Urine Specific Gravity 1.016 (1.001-1.035); Urine WBC 1304 /hpf (0 - 3); Urine WBC Clumps PRESENT /hpf (None Seen)
[2018-02-20 14:29] LABS: Cholesterol 148 mg/dL (< 200); HDL Cholesterol 30 mg/dL (40-59); LDL Cholesterol 108 mg/dL (< 100); Triglycerides 187 mg/dL (< 150)
== END | disposition home or self-care (01) ==
LOC: LAB 12:04
PROVIDERS: ATTEND Internal Medicine
DX: E11.9 Type 2 diabetes mellitus without complications (principal); I11.0 Hypertensive heart disease with heart failure; I50.9 Heart failure, unspecified; Z87.891 Personal history of nicotine dependence
CPT/HCPCS: 36415; 80061; 81001; 82043; 83036

== ENCOUNTER → 2018-02-24 | Outpatient (CLI) | payer OTHER | END | disposition home or self-care (01) | LOC: LAB 10:49 | PROVIDERS: ATTEND Internal Medicine | DX: S31.30XA Unspecified open wound of scrotum and testes, initial encounter (principal); X58.XXXA Exposure to other specified factors, initial encounter; Y93.89 Activity, other specified; Y92.89 Other specified places as the place of occurrence of the external cause; Y99.8 Other external cause status | CPT/HCPCS: 87077; 87186; 87205 ==

== ENCOUNTER → 2018-03-31 | Outpatient (CLI) | payer OTHER, MEDICARE | END | disposition home or self-care (01) | LOC: LAB 15:28 | PROVIDERS: ATTEND Internal Medicine | DX: S31.30XD Unspecified open wound of scrotum and testes, subsequent encounter (principal); X58.XXXD Exposure to other specified factors, subsequent encounter | CPT/HCPCS: 87205 ==

== ENCOUNTER → 2018-04-29 | Outpatient (CLI) | payer OTHER, MEDICARE | END | disposition home or self-care (01) | LOC: LAB 12:07 | PROVIDERS: ATTEND Internal Medicine | DX: S31.30XD Unspecified open wound of scrotum and testes, subsequent encounter (principal); S71.102D Unspecified open wound, left thigh, subsequent encounter; X58.XXXD Exposure to other specified factors, subsequent encounter | CPT/HCPCS: 87070 ==

== ENCOUNTER → 2018-06-04 | Outpatient (CLI) | payer MEDICARE, OTHER | END | disposition home or self-care (01) | LOC: LAB 16:02 | PROVIDERS: ATTEND Urology | DX: C67.9 Malignant neoplasm of bladder, unspecified (principal) | CPT/HCPCS: 88108 ==

== ENCOUNTER → 2018-06-24 | Outpatient (CLI) | payer OTHER | END | disposition home or self-care (01) | LOC: LAB 15:43 | PROVIDERS: ATTEND Internal Medicine | DX: S31.30XS Unspecified open wound of scrotum and testes, sequela (principal); X58.XXXS Exposure to other specified factors, sequela | CPT/HCPCS: 87205 ==

== ENCOUNTER → 2018-08-10 | Outpatient (CLI) | payer OTHER ==
[~2018-08-10] MED LIST changes: -FURO20TA3 PO
[2018-08-10 12:55] LABS: Basophils # (auto) 0.1 uL; Hemoglobin 10.2 g/dL (13.5-17.5); Lymphocytes # (auto) 1.4 uL; Monocytes # (auto) 0.6 uL; Neutrophils # (auto) 9.4 uL
[2018-08-10 12:56] LABS: Basophils % (auto) 0.7 % (0.0-2.0); Eosinophils # (auto) 0.5 uL; Eosinophils % (auto) 4.2 % (0.0-7.0); Hematocrit 33.7 % (41.0-53.0); Lymphocytes % (auto) 11.4 % (10.0-50.0); Mean Corpuscular Hemoglobin 20.9 pg (28.0-32.0); Mean Corpuscular Hgb Conc. 30.2 g/dL (32.0-36.0); Mean Corpuscular Volume 69.4 fL (80.0-100.0); Monocytes % (auto) 5.3 % (0.0-12.0); Neutrophils % (auto) 78.4 % (37.0-80.0); Platelet Count (auto) 432 10^3/uL (140-450); Red Blood Cells 4.85 10^6/uL (4.5-5.90); Red Cell Distribution Width 18.6 % (11.8-14.3)
== END | disposition home or self-care (01) ==
LOC: LAB 11:20
PROVIDERS: ATTEND Internal Medicine
DX: R78.81 Bacteremia (principal)
CPT/HCPCS: 36415; 85025; 87040

== ENCOUNTER 2018-09-16 10:59 | Emergency (ER) | payer OTHER ==
[~2018-09-16] VITALS: Ht 172.7 cm; Wt 117.9 kg
[2018-09-16 15:31] VITALS: BP 151/65
== END 2018-09-16 17:27 | disposition home or self-care (01) ==
LOC: ER 11:08
DX: T82.898A Other specified complication of vascular prosthetic devices, implants and grafts, initial encounter (principal); Y92.89 Other specified places as the place of occurrence of the external cause; I12.9 Hypertensive chronic kidney disease with stage 1 through stage 4 chronic kidney disease, or unspecified chronic kidney disease; E11.22 Type 2 diabetes mellitus with diabetic chronic kidney disease; N18.9 Chronic kidney disease, unspecified; Z90.89 Acquired absence of other organs; Z90.49 Acquired absence of other specified parts of digestive tract

== ENCOUNTER 2019-02-09 11:53 | Inpatient (IN) | payer MEDICARE, MEDICAID, OTHER | END 2019-02-12 14:10 | disposition home health service (06) | LOC: ER 11:53 → OVERFLOW 11:54 → TELE-CENTR 20:41 → CENTRAL 20:57 | PROC: 0T9B70Z Drainage of Bladder with Drainage Device, Via Natural or Artificial Opening (ICD-10-PCS; principal; ~2019-02-09) | PROC: 0H9JXZX Drainage of Left Upper Leg Skin, External Approach, Diagnostic (ICD-10-PCS; ~2019-02-09) | DX: L02.416 Cutaneous abscess of left lower limb (principal); L03.90 Cellulitis, unspecified; N17.9 Acute kidney failure, unspecified; E87.1 Hypo-osmolality and hyponatremia; L02.215 Cutaneous abscess of perineum; L97.119 Non-pressure chronic ulcer of right thigh with unspecified severity; E66.01 Morbid (severe) obesity due to excess calories; E03.9 Hypothyroidism, unspecified; I10 Essential (primary) hypertension; E11.9 Type 2 diabetes mellitus without complications; N18.3 Chronic kidney disease, stage 3 (moderate); D50.9 Iron deficiency anemia, unspecified; R82.71 Bacteriuria; R31.9 Hematuria, unspecified; E11.21 Type 2 diabetes mellitus with diabetic nephropathy; E11.22 Type 2 diabetes mellitus with diabetic chronic kidney disease; E53.8 Deficiency of other specified B group vitamins; N49.2 Inflammatory disorders of scrotum; I12.9 Hypertensive chronic kidney disease with stage 1 through stage 4 chronic kidney disease, or unspecified chronic kidney disease ==

== ENCOUNTER → 2019-04-13 | Outpatient (CLI) | payer MEDICARE, MEDICAID ==
[~2019-04-13] MED LIST changes: -GLIP-115 PO; +GLIP5TAB12 PO; +LISI10TA6 PO; +METF-370 PO
[2019-04-13 15:30] LABS: Urine Bacteria FEW /hpf (None Seen); Urine Blood 1+ /uL (Negative); Urine Mucus FEW (None Seen); Urine Specific Gravity 1.016 (1.001-1.035); Urine WBC 836 /hpf (0 - 3); Urine WBC Clumps PRESENT /hpf (None Seen)
[2019-04-13 15:58] LABS: Calcium 9.7 mg/dL (8.5-10.1); Potassium 4.8 mmol/L (3.5-5.1)
[2019-04-13 16:00] LABS: BUN/Creatinine Ratio 14.7
== END | disposition home or self-care (01) ==
LOC: LAB 15:03
PROVIDERS: ATTEND Internal Medicine
DX: E11.22 Type 2 diabetes mellitus with diabetic chronic kidney disease (principal); I12.9 Hypertensive chronic kidney disease with stage 1 through stage 4 chronic kidney disease, or unspecified chronic kidney disease; N18.3 Chronic kidney disease, stage 3 (moderate)
CPT/HCPCS: 36415; 80048; 81001; 82043; 83036

== ENCOUNTER → 2019-04-14 | Outpatient (CLI) | payer MEDICARE, MEDICAID | END | disposition home or self-care (01) | LOC: LAB 15:00 | PROVIDERS: ATTEND Urology | DX: C67.9 Malignant neoplasm of bladder, unspecified (principal) | CPT/HCPCS: 88108 ==

== ENCOUNTER → 2019-07-02 | Outpatient (CLI) | payer MEDICARE ==
[2019-07-02 15:35] LABS: Basophils # (auto) 0.1 uL; Eosinophils # (auto) 0.4 uL; Hemoglobin 13.6 g/dL (13.5-17.5); Monocytes # (auto) 0.6 uL
[2019-07-02 15:36] LABS: Basophils % (auto) 0.8 % (0.0-2.0); Eosinophils % (auto) 3.6 % (0.0-7.0); Hematocrit 42.7 % (41.0-53.0); Lymphocytes # (auto) 2.1 uL; Lymphocytes % (auto) 17.5 % (10.0-50.0); Mean Corpuscular Hemoglobin 26.7 pg (28.0-32.0); Mean Corpuscular Hgb Conc. 31.8 g/dL (32.0-36.0); Mean Corpuscular Volume 83.8 fL (80.0-100.0); Monocytes % (auto) 4.8 % (0.0-12.0); Neutrophils # (auto) 8.8 uL; Neutrophils % (auto) 73.3 % (37.0-80.0); Platelet Count (auto) 368 10^3/uL (140-450); Red Cell Distribution Width 20.6 % (11.8-14.3); White Blood Cell 12.1 10^3/uL (4.4-10.8)
[2019-07-02 15:45] LABS: Urine Bacteria MOD /hpf (None Seen); Urine Blood 1+ /uL (Negative); Urine Mucus FEW (None Seen); Urine Specific Gravity 1.016 (1.001-1.035); Urine WBC 428 /hpf (0 - 3); Urine WBC Clumps PRESENT /hpf (None Seen)
[2019-07-02 16:06] LABS: Albumin 3.5 g/dL (3.4-5.0); Calcium 9.6 mg/dL (8.5-10.1); Magnesium 1.7 mg/dL (1.6-2.6); Potassium 4.7 mmol/L (3.5-5.1)
[2019-07-02 16:11] LABS: BUN/Creatinine Ratio 13.4; Bilirubin, Total 0.2 mg/dL (0.2-1.0)
[2019-07-02 16:15] LABS: Protein, Urine 151.9 mg/dL (0.0-11.9)
== END | disposition home or self-care (01) ==
LOC: LAB 15:03
PROVIDERS: ATTEND Internal Medicine Nephrology
DX: E11.21 Type 2 diabetes mellitus with diabetic nephropathy (principal); I12.9 Hypertensive chronic kidney disease with stage 1 through stage 4 chronic kidney disease, or unspecified chronic kidney disease; N18.3 Chronic kidney disease, stage 3 (moderate)
CPT/HCPCS: 36415; 80053; 81001; 82306; 82570; 83735; 83970; 84100; 84156; 85025

== ENCOUNTER → 2019-07-07 | Outpatient (CLI) | payer MEDICARE | END | disposition home or self-care (01) | LOC: LAB 15:36 | PROVIDERS: ATTEND Internal Medicine Nephrology | DX: N39.0 Urinary tract infection, site not specified (principal); A41.9 Sepsis, unspecified organism | CPT/HCPCS: 87040; 87077; 87086; 87088; 87186 ==

== ENCOUNTER → 2019-09-08 | Outpatient (CLI) | payer MEDICARE, MEDICAID ==
[2019-09-08 14:56] LABS: BUN/Creatinine Ratio 12.6; Calcium 9.4 mg/dL (8.5-10.1); Potassium 5.4 mmol/L (3.5-5.1)
== END | disposition home or self-care (01) ==
LOC: LAB 13:57
PROVIDERS: ATTEND Internal Medicine
DX: I50.9 Heart failure, unspecified (principal); I10 Essential (primary) hypertension
CPT/HCPCS: 36415; 80048; 83880

== ENCOUNTER → 2019-09-21 | Outpatient (CLI) | payer MEDICARE, MEDICAID ==
[2019-09-21 10:18] LABS: Basophils # (auto) 0.1 10 ^3/uL (0-0.2); Eosinophils # (auto) 0.5 10 ^3/uL (0-0.8); Eosinophils % (auto) 4.6 % (0.0-7.0); Hematocrit 38.8 % (41.0-53.0); Hemoglobin 12.4 g/dL (13.5-17.5); Lymphocytes # (auto) 2.2 10 ^3/uL (0.4-5.4); Lymphocytes % (auto) 19.6 % (10.0-50.0); Mean Corpuscular Hemoglobin 26.1 pg (28.0-32.0); Mean Corpuscular Hgb Conc. 31.9 g/dL (32.0-36.0); Mean Corpuscular Volume 81.9 fL (80.0-100.0); Monocytes # (auto) 0.6 10 ^3/uL (0-1.3); Monocytes % (auto) 5.8 % (0.0-12.0); Neutrophils # (auto) 7.7 10 ^3/uL (1.6-8.6); Nucleated Red Blood Cells % 0.1 %; Platelet Count (auto) 399 10^3/uL (140-450); Red Blood Cells 4.74 10^6/uL (4.5-5.90); Red Cell Distribution Width 15.9 % (11.8-14.3); White Blood Cell 11.2 10^3/uL (4.4-10.8)
[2019-09-21 10:27] LABS: Urine Bacteria NONE SEEN /hpf (None Seen); Urine Blood Negative /uL (Negative); Urine Specific Gravity 1.006 (1.001-1.035); Urine WBC 1 /hpf (0 - 3)
[2019-09-21 10:50] LABS: Albumin 3.3 g/dL (3.4-5.0); BUN/Creatinine Ratio 18.8; Calcium 9.9 mg/dL (8.5-10.1)
[2019-09-21 10:55] LABS: Bilirubin, Total 0.3 mg/dL (0.2-1.0)
[2019-09-21 11:00] LABS: Folate (Folic Acid) 13.67 ng/mL (5.38-24)
== END | disposition home or self-care (01) ==
LOC: LAB 09:59
PROVIDERS: ATTEND Internal Medicine
DX: E11.22 Type 2 diabetes mellitus with diabetic chronic kidney disease (principal); I13.0 Hypertensive heart and chronic kidney disease with heart failure and stage 1 through stage 4 chronic kidney disease, or unspecified chronic kidney disease; N18.3 Chronic kidney disease, stage 3 (moderate); I50.9 Heart failure, unspecified
CPT/HCPCS: 36415; 80053; 80061; 81001; 82043; 82607; 82746; 83036; 85025

== ENCOUNTER → 2019-12-13 | Outpatient (CLI) | payer MEDICARE ==
[2019-12-13 11:25] LABS: Basophils # (auto) 0.1 10 ^3/uL (0-0.2); Basophils % (auto) 0.7 % (0.0-2.0); Mean Corpuscular Volume 79.4 fL (80.0-100.0)
[2019-12-13 11:28] LABS: Eosinophils # (auto) 0.6 10 ^3/uL (0-0.8); Eosinophils % (auto) 5.6 % (0.0-7.0); Hematocrit 35.5 % (41.0-53.0); Hemoglobin 11.1 g/dL (13.5-17.5); Lymphocytes # (auto) 1.7 10 ^3/uL (0.4-5.4); Lymphocytes % (auto) 17.4 % (10.0-50.0); Mean Corpuscular Hemoglobin 24.7 pg (28.0-32.0); Mean Corpuscular Hgb Conc. 31.1 g/dL (32.0-36.0); Monocytes # (auto) 0.5 10 ^3/uL (0-1.3); Monocytes % (auto) 5.5 % (0.0-12.0); Neutrophils # (auto) 7.1 10 ^3/uL (1.6-8.6); Neutrophils % (auto) 70.8 % (37.0-80.0); Platelet Count (auto) 398 10^3/uL (140-450); Red Blood Cells 4.48 10^6/uL (4.5-5.90); Red Cell Distribution Width 16.6 % (11.8-14.3)
[2019-12-13 11:46] LABS: Calcium 9.8 mg/dL (8.5-10.1); Potassium 4.9 mmol/L (3.5-5.1)
[2019-12-13 11:50] LABS: BUN/Creatinine Ratio 13.8
== END | disposition home or self-care (01) ==
LOC: LAB 10:58
PROVIDERS: ATTEND Internal Medicine
DX: E11.22 Type 2 diabetes mellitus with diabetic chronic kidney disease (principal); N18.9 Chronic kidney disease, unspecified
CPT/HCPCS: 36415; 80048; 80061; 83036; 84443; 85025

== ENCOUNTER → 2020-03-16 | Outpatient (CLI) | payer MEDICARE ==
[~2020-03-16] MED LIST changes: +LISI-648 PO; -LISI10TA6 PO
[2020-03-16 14:30] LABS: Urine Bacteria FEW /hpf (None Seen); Urine Blood Negative /uL (Negative); Urine Specific Gravity 1.016 (1.001-1.035); Urine WBC 2 /hpf (0 - 3)
== END | disposition home or self-care (01) ==
LOC: LAB 14:01
PROVIDERS: ATTEND Internal Medicine
DX: R35.0 Frequency of micturition (principal)
CPT/HCPCS: 81001; 87086

== ENCOUNTER → 2020-04-24 | Outpatient (CLI) | payer MEDICARE, MEDICAID ==
[2020-04-24 10:47] LABS: Basophils # (auto) 0.1 10 ^3/uL (0-0.2); Basophils % (auto) 0.7 % (0.0-2.0); Eosinophils # (auto) 0.4 10 ^3/uL (0-0.8); Hemoglobin 10.8 g/dL (13.5-17.5); Lymphocytes # (auto) 1.9 10 ^3/uL (0.4-5.4); Monocytes # (auto) 0.5 10 ^3/uL (0-1.3)
[2020-04-24 10:48] LABS: Eosinophils % (auto) 4.7 % (0.0-7.0); Hematocrit 34.5 % (41.0-53.0); Lymphocytes % (auto) 20.2 % (10.0-50.0); Mean Corpuscular Hgb Conc. 31.3 g/dL (32.0-36.0); Mean Corpuscular Volume 79.9 fL (80.0-100.0); Monocytes % (auto) 5.5 % (0.0-12.0); Neutrophils # (auto) 6.6 10 ^3/uL (1.6-8.6); Neutrophils % (auto) 68.9 % (37.0-80.0); Platelet Count (auto) 338 10^3/uL (140-450); Red Blood Cells 4.32 10^6/uL (4.5-5.90); Red Cell Distribution Width 16.9 % (11.8-14.3); White Blood Cell 9.5 10^3/uL (4.4-10.8)
[2020-04-24 17:20] LABS: Albumin 3.1 g/dL (3.4-5.0); Potassium 4.7 mmol/L (3.5-5.1)
[2020-04-24 17:23] LABS: BUN/Creatinine Ratio 13.1; Bilirubin, Total 0.2 mg/dL (0.2-1.0); Total Protein 6.9 g/dL (6.4-8.2)
== END | disposition home or self-care (01) ==
LOC: LAB 10:25
PROVIDERS: ATTEND Internal Medicine
DX: E11.22 Type 2 diabetes mellitus with diabetic chronic kidney disease (principal); N18.9 Chronic kidney disease, unspecified; E11.319 Type 2 diabetes mellitus with unspecified diabetic retinopathy without macular edema; I42.9 Cardiomyopathy, unspecified
CPT/HCPCS: 36415; 80053; 82607; 83036; 85025

== ENCOUNTER → 2020-09-18 | Outpatient (CLI) | payer MEDICARE, MEDICAID ==
[2020-09-18 09:35] LABS: Basophils # (auto) 0.1 10 ^3/uL (0-0.2); Eosinophils # (auto) 0.4 10 ^3/uL (0-0.8); Eosinophils % (auto) 3.7 % (0.0-7.0); Nucleated Red Blood Cells % 0.1 %
[2020-09-18 09:37] LABS: Urine Bacteria NONE SEEN /hpf (None Seen); Urine Blood Negative /uL (Negative); Urine Specific Gravity 1.018 (1.001-1.035); Urine WBC 4 /hpf (0 - 3)
[2020-09-18 09:38] LABS: Hemoglobin 11.3 g/dL (13.5-17.5); Lymphocytes # (auto) 2.7 10 ^3/uL (0.4-5.4); Lymphocytes % (auto) 24.4 % (10.0-50.0); Mean Corpuscular Hemoglobin 26.8 pg (28.0-32.0); Mean Corpuscular Hgb Conc. 32.2 g/dL (32.0-36.0); Mean Corpuscular Volume 83.1 fL (80.0-100.0); Monocytes # (auto) 0.7 10 ^3/uL (0-1.3); Monocytes % (auto) 6.4 % (0.0-12.0); Neutrophils # (auto) 7.1 10 ^3/uL (1.6-8.6); Neutrophils % (auto) 64.5 % (37.0-80.0); Platelet Count (auto) 376 10^3/uL (140-450); Red Blood Cells 4.21 10^6/uL (4.5-5.90); Red Cell Distribution Width 17.8 % (11.8-14.3)
[2020-09-18 10:41] LABS: Albumin 3.3 g/dL (3.4-5.0); Potassium 5.2 mmol/L (3.5-5.1)
[2020-09-18 10:48] LABS: BUN/Creatinine Ratio 15.3; Bilirubin, Total 0.3 mg/dL (0.2-1.0); Calcium 9.6 mg/dL (8.5-10.1); Total Protein 7.4 g/dL (6.4-8.2)
[2020-09-18 11:15] LABS: Free T4 (Free Thyroxine) 1.24 ng/dL (0.89-1.76)
== END | disposition home or self-care (01) ==
LOC: LAB 09:07
PROVIDERS: ATTEND Internal Medicine
DX: E11.319 Type 2 diabetes mellitus with unspecified diabetic retinopathy without macular edema (principal); I42.9 Cardiomyopathy, unspecified; E03.9 Hypothyroidism, unspecified; E78.5 Hyperlipidemia, unspecified
CPT/HCPCS: 36415; 80053; 80061; 81001; 82043; 82607; 83036; 84439; 84443; 85025

== ENCOUNTER → 2020-09-21 | Outpatient (CLI) | payer MEDICARE, MEDICAID ==
[~2020-09-21] MED LIST changes: -LISI-648 PO; +LISI-716 PO
[2020-09-21 15:18] LABS: BUN/Creatinine Ratio 14.3; Calcium 9.8 mg/dL (8.5-10.1); Potassium 5.4 mmol/L (3.5-5.1)
== END | disposition home or self-care (01) ==
LOC: LAB 14:38
PROVIDERS: ATTEND Internal Medicine
DX: E11.22 Type 2 diabetes mellitus with diabetic chronic kidney disease (principal); N18.9 Chronic kidney disease, unspecified
CPT/HCPCS: 36415; 80048

== ENCOUNTER 2021-06-07 04:42 | Inpatient (IN) | payer MEDICARE, MEDICAID ==
[~2021-06-07] VITALS: Ht 172.7 cm; Wt 115.0 kg
[2021-06-07 08:15] LABS: Eosinophils # (auto) 0 10 ^3/uL (0-0.8); Hemoglobin 11.7 g/dL (13.5-17.5); Lymphocytes # (auto) 1.1 10 ^3/uL (0.4-5.4); Mean Corpuscular Hgb Conc. 32.3 g/dL (32.0-36.0); Monocytes # (auto) 0.8 10 ^3/uL (0-1.3); Neutrophils # (auto) 8.7 10 ^3/uL (1.6-8.6); Nucleated Red Blood Cells % 0.1 %; Red Cell Distribution Width 16.8 % (11.8-14.3); White Blood Cell 10.6 10^3/uL (4.4-10.8)
[2021-06-07 08:17] LABS: Basophils # (auto) 0 10 ^3/uL (0-0.2); Basophils % (auto) 0.3 % (0.0-2.0); Hematocrit 36.2 % (41.0-53.0); Lymphocytes % (auto) 10.1 % (10.0-50.0); Mean Corpuscular Volume 80.5 fL (80.0-100.0); Monocytes % (auto) 7.2 % (0.0-12.0); Neutrophils % (auto) 82.4 % (37.0-80.0)
[2021-06-07 08:33] LABS: Potassium 5.2 mmol/L (3.5-5.1)
[2021-06-07 08:43] LABS: Albumin 3.2 g/dL (3.4-5.0); BUN/Creatinine Ratio 16.9; Bilirubin, Total 0.2 mg/dL (0.2-1.0); Calcium 9.2 mg/dL (8.5-10.1); Total Protein 7.7 g/dL (6.4-8.2)
[2021-06-07] MEDS ORDERED: ALBUTEROL SULF 2.5 MG/0.5ML(0.5%) NEB SOLN NEB ONE (08:45)
[2021-06-07] MEDS ORDERED: FUROSEMIDE 20 MG/2 ML VIAL IV ONE (08:45)
[2021-06-07] MEDS ORDERED: DEXTROSE (50%) 50ML SYRG IV ONE (08:45)
[2021-06-07] MEDS ORDERED: SODIUM BICARBONATE 8.4% INJ 50ML SYRINGE IV ONE (08:45)
[2021-06-07] MEDS ORDERED: CALCIUM GLUC 1,000mg/50ml-NS 50 ML IV ONE (08:45)
[2021-06-07] MEDS ORDERED: SODIUM ZIRCONIUM CYCL 10 GM PAK PO ONE (08:45)
[2021-06-07] MEDS ORDERED: InsuLIN REG 1unit/0.01ml Soln (100units/ml) IV ONE (08:45)
[2021-06-07] MEDS ORDERED: MORPHINE SULFATE INJECTION 2 MG/ML SYRG IV PRN (11:00)
[2021-06-07] MEDS ORDERED: NITROGLYCERIN 0.4 MG SL TAB SL PRN (11:00)
[2021-06-07] MEDS ORDERED: ACETAMINOPHEN 500 MG TAB PO PRN (14:15)
[2021-06-07] MEDS ORDERED: DEXTROSE (50%) 50ML SYRG IV PRN (14:45)
[2021-06-07 14:50] LABS: Magnesium 1.8 mg/dL (1.6-2.6)
[2021-06-07 15:00] LABS: CRP High Sensitivity 3.85 mg/dL (< 0.3)
[2021-06-07 15:37] LABS: INR 1.06 (0.9-1.15); Partial Thromboplastin Time 34.4 sec (23.6-33.0)
[2021-06-07] MEDS: InsuLIN REG 1unit/0.01ml Soln (100units/ml) SC SCH ×2 (17:00→23:58)
[2021-06-07] MEDS: ACCU-CHEK COMFORT CURVE STRIP VI SCH ×2 (17:34→23:57)
[2021-06-07] MEDS: BUDESONIDE (INHALATION) 180 MCG IH IN SCH (19:27)
[2021-06-07] MEDS: ALBUTEROL SULF HFA 90MCG INH 200DOSE IN PRN (19:27)
[2021-06-07 21:45] VITALS: BP 114/49
[2021-06-07] MEDS ORDERED: ERGOCALCIFEROL 50,000 UNIT(1.25MG) CAP PO SCH (21:45)
[2021-06-07] MEDS ORDERED: CYANOCOBALAMIN (B-12) 1000 MCG/1 ML VIAL IM ONE (21:45)
[2021-06-07 22:00] VITALS: BP 114/49
[2021-06-07] MEDS ORDERED: ENOXAPARIN SOD 40 MG/0.4 ML SYRINGE SC SCH (22:00)
[2021-06-07] MEDS: DOXYCYCLINE 100 MG TAB/CAP PO SCH (23:57)
[2021-06-07] MEDS: APIXABAN 5 MG TAB PO SCH (23:57)
[2021-06-08 01:53] LABS: Urine Bacteria NONE SEEN /hpf (None Seen); Urine Blood Negative /uL (Negative); Urine Hyaline Cast FEW /lpf (0 - 2); Urine Mucus FEW (None Seen); Urine Specific Gravity 1.016 (1.001-1.035); Urine WBC 3 /hpf (0 - 3)
[2021-06-08 02:35] LABS: Protein, Urine 75.6 mg/dL (0.0-11.9)
[2021-06-08 05:00] VITALS: BP 117/57
[2021-06-08] MEDS: ACCU-CHEK COMFORT CURVE STRIP VI SCH ×4 (06:14→22:26)
[2021-06-08] MEDS: LEVOTHYROXINE SODIUM 88 MCG TAB PO SCH (06:23)
[2021-06-08] MEDS: InsuLIN REG 1unit/0.01ml Soln (100units/ml) SC SCH ×4 (06:24→22:33)
[2021-06-08] MEDS: BUDESONIDE (INHALATION) 180 MCG IH IN SCH ×2 (07:26→21:48)
[2021-06-08] MEDS: ALBUTEROL SULF HFA 90MCG INH 200DOSE IN PRN ×2 (07:26→21:48)
[2021-06-08 07:32] LABS: Basophils # (auto) 0 10 ^3/uL (0-0.2); Basophils % (auto) 0.3 % (0.0-2.0); Eosinophils # (auto) 0 10 ^3/uL (0-0.8); Lymphocytes % (auto) 12.4 % (10.0-50.0); Monocytes # (auto) 0.5 10 ^3/uL (0-1.3); Red Cell Distribution Width 16.6 % (11.8-14.3)
[2021-06-08 07:35] LABS: Potassium 4.5 mmol/L (3.5-5.1)
[2021-06-08 07:40] LABS: Hemoglobin 11.1 g/dL (13.5-17.5); Mean Corpuscular Hemoglobin 26.1 pg (28.0-32.0); Mean Corpuscular Hgb Conc. 32.8 g/dL (32.0-36.0); Mean Corpuscular Volume 79.7 fL (80.0-100.0); Monocytes % (auto) 6.1 % (0.0-12.0); Neutrophils # (auto) 6.3 10 ^3/uL (1.6-8.6); Neutrophils % (auto) 81.2 % (37.0-80.0); Nucleated Red Blood Cells % 0.1 %; Red Blood Cells 4.26 10^6/uL (4.5-5.90); White Blood Cell 7.8 10^3/uL (4.4-10.8)
[2021-06-08 07:55] LABS: Albumin 3.1 g/dL (3.4-5.0); BUN/Creatinine Ratio 18.3; Bilirubin, Total 0.2 mg/dL (0.2-1.0); Calcium 8.9 mg/dL (8.5-10.1); Magnesium 2.1 mg/dL (1.6-2.6); Total Protein 6.9 g/dL (6.4-8.2)
[2021-06-08 09:00] VITALS: BP 127/57
[2021-06-08] MEDS: CYANOCOBALAMIN (B-12) 1000 MCG/1 ML VIAL IM SCH (10:17)
[2021-06-08] MEDS: ZINC SULFATE 220mg CAP or TAB PO SCH (10:18)
[2021-06-08] MEDS: CHOLECALCIFEROL (VITD3) 2,000 UNIT CAP/TAB PO SCH (10:18)
[2021-06-08] MEDS: APIXABAN 5 MG TAB PO SCH ×2 (10:18→22:34)
[2021-06-08] MEDS: DOXYCYCLINE 100 MG TAB/CAP PO SCH ×2 (10:18→22:33)
[2021-06-08] MEDS: ASCORBIC ACID 1,000 MG TAB PO SCH (10:18)
[2021-06-08] MEDS: FUROSEMIDE 20 MG/2 ML VIAL IV SCH (10:18)
[2021-06-08] MEDS ORDERED: FERR325T20 PO (11:44)
[2021-06-08] MEDS ORDERED: DULA1INJ SC (11:44)
[2021-06-08] MEDS ORDERED: GLIP10TA9 PO (11:44)
[2021-06-08] MEDS ORDERED: ROSU1TAB14 PO (11:44)
[2021-06-08] MEDS ORDERED: METF-929 PO (11:44)
[2021-06-08] MEDS ORDERED: FURO40TA4 PO (11:44)
[2021-06-08 13:00] VITALS: BP 110/52
[2021-06-08] MEDS ORDERED: REMDESIVIR PER PHARMACY 0 ML IV SCH (14:45)
[2021-06-08 16:40] VITALS: BP 119/62
[2021-06-08] MEDS ORDERED: REMDESIVIR 200 MG in NS 210ml LOADING DOSE ADULT IV ONE (17:15)
[2021-06-08 22:00] VITALS: BP 118/60
[2021-06-09 05:00] VITALS: BP 129/62
[2021-06-09] MEDS: ALBUTEROL SULF HFA 90MCG INH 200DOSE IN PRN (05:52)
[2021-06-09] MEDS: BUDESONIDE (INHALATION) 180 MCG IH IN SCH ×2 (05:52→22:50)
[2021-06-09] MEDS: ACCU-CHEK COMFORT CURVE STRIP VI SCH ×4 (06:32→21:37)
[2021-06-09] MEDS: LEVOTHYROXINE SODIUM 88 MCG TAB PO SCH (06:37)
[2021-06-09] MEDS: InsuLIN REG 1unit/0.01ml Soln (100units/ml) SC SCH ×4 (06:37→21:46)
[2021-06-09 09:00] VITALS: BP 120/58
[2021-06-09] MEDS: FUROSEMIDE 20 MG/2 ML VIAL IV SCH (09:05)
[2021-06-09] MEDS: CYANOCOBALAMIN (B-12) 1000 MCG/1 ML VIAL IM SCH (09:05)
[2021-06-09] MEDS: ASCORBIC ACID 1,000 MG TAB PO SCH (09:06)
[2021-06-09] MEDS: DOXYCYCLINE 100 MG TAB/CAP PO SCH ×2 (09:06→21:37)
[2021-06-09] MEDS: APIXABAN 5 MG TAB PO SCH ×2 (09:06→21:37)
[2021-06-09] MEDS: ZINC SULFATE 220mg CAP or TAB PO SCH (09:06)
[2021-06-09] MEDS: CHOLECALCIFEROL (VITD3) 2,000 UNIT CAP/TAB PO SCH (09:06)
[2021-06-09 10:35] LABS: Calcium 8.8 mg/dL (8.5-10.1); Potassium 3.9 mmol/L (3.5-5.1)
[2021-06-09 10:48] LABS: Albumin 2.9 g/dL (3.4-5.0); BUN/Creatinine Ratio 20.8; Bilirubin, Total 0.2 mg/dL (0.2-1.0); Total Protein 6.2 g/dL (6.4-8.2)
[2021-06-09 13:00] VITALS: BP 131/58
[2021-06-09] MEDS: REMDESIVIR 100mg 100 MG in SODIUM CHL 0.9% 230 ML IV SCH (13:38)
[2021-06-09 17:00] VITALS: BP 130/61
[2021-06-09] MEDS ORDERED: ALBUTEROL SULF 2.5 MG/0.5ML(0.5%) NEB SOLN NEB PRN (19:30)
[2021-06-09 22:00] VITALS: BP 128/55
[2021-06-10 05:00] VITALS: BP 125/63
[2021-06-10] MEDS: ACCU-CHEK COMFORT CURVE STRIP VI SCH ×4 (06:16→22:01)
[2021-06-10] MEDS: InsuLIN REG 1unit/0.01ml Soln (100units/ml) SC SCH ×4 (06:17→21:58)
[2021-06-10] MEDS: LEVOTHYROXINE SODIUM 88 MCG TAB PO SCH (06:17)
[2021-06-10] MEDS: BUDESONIDE (INHALATION) 180 MCG IH IN SCH ×2 (08:25→19:36)
[2021-06-10 08:33] VITALS: BP 137/68
[2021-06-10] MEDS: FUROSEMIDE 20 MG/2 ML VIAL IV SCH (09:22)
[2021-06-10] MEDS: CYANOCOBALAMIN (B-12) 1000 MCG/1 ML VIAL IM SCH (09:22)
[2021-06-10] MEDS: APIXABAN 5 MG TAB PO SCH ×2 (09:24→21:53)
[2021-06-10] MEDS: ZINC SULFATE 220mg CAP or TAB PO SCH (09:24)
[2021-06-10] MEDS: DOXYCYCLINE 100 MG TAB/CAP PO SCH ×2 (09:24→21:53)
[2021-06-10] MEDS: ASCORBIC ACID 1,000 MG TAB PO SCH (09:24)
[2021-06-10] MEDS: CHOLECALCIFEROL (VITD3) 2,000 UNIT CAP/TAB PO SCH (09:24)
[2021-06-10 11:29] LABS: Albumin 2.9 g/dL (3.4-5.0); Potassium 3.7 mmol/L (3.5-5.1)
[2021-06-10 11:46] LABS: BUN/Creatinine Ratio 21.7; Bilirubin, Total 0.3 mg/dL (0.2-1.0); Total Protein 6.5 g/dL (6.4-8.2)
[2021-06-10 12:31] VITALS: BP 136/63
[2021-06-10] MEDS: REMDESIVIR 100mg 100 MG in SODIUM CHL 0.9% 230 ML IV SCH (15:00)
[2021-06-10 16:43] VITALS: BP 138/60
[2021-06-10 20:30] VITALS: BP 132/68
[2021-06-10 22:00] VITALS: BP 132/68
[2021-06-10] MEDS: ALBUTEROL SULF HFA 90MCG INH 200DOSE IN PRN (22:53)
[2021-06-11 05:00] VITALS: BP 113/61
[2021-06-11] MEDS: LEVOTHYROXINE SODIUM 88 MCG TAB PO SCH (06:32)
[2021-06-11] MEDS: InsuLIN REG 1unit/0.01ml Soln (100units/ml) SC SCH ×4 (06:34→22:15)
[2021-06-11] MEDS: ACCU-CHEK COMFORT CURVE STRIP VI SCH ×4 (06:38→22:14)
[2021-06-11 08:00] LABS: Basophils # (auto) 0 10 ^3/uL (0-0.2); Basophils % (auto) 0.5 % (0.0-2.0); Eosinophils # (auto) 0.1 10 ^3/uL (0-0.8); Eosinophils % (auto) 1.2 % (0.0-7.0); Hematocrit 35.1 % (41.0-53.0); Hemoglobin 11.4 g/dL (13.5-17.5); Lymphocytes % (auto) 21.1 % (10.0-50.0); Mean Corpuscular Hemoglobin 25.9 pg (28.0-32.0); Mean Corpuscular Hgb Conc. 32.6 g/dL (32.0-36.0); Mean Corpuscular Volume 79.5 fL (80.0-100.0); Monocytes # (auto) 0.5 10 ^3/uL (0-1.3); Neutrophils # (auto) 3.2 10 ^3/uL (1.6-8.6); Neutrophils % (auto) 66.2 % (37.0-80.0); Nucleated Red Blood Cells % 0.2 %; Red Blood Cells 4.42 10^6/uL (4.5-5.90); Red Cell Distribution Width 16.9 % (11.8-14.3); White Blood Cell 4.9 10^3/uL (4.4-10.8)
[2021-06-11 08:09] LABS: Albumin 2.8 g/dL (3.4-5.0); Bilirubin, Total 0.3 mg/dL (0.2-1.0); Calcium 9.2 mg/dL (8.5-10.1); Total Protein 6.9 g/dL (6.4-8.2)
[2021-06-11 09:00] VITALS: BP 127/58
[2021-06-11] MEDS: BUDESONIDE (INHALATION) 180 MCG IH IN SCH ×2 (09:34→22:00)
[2021-06-11] MEDS: ALBUTEROL SULF HFA 90MCG INH 200DOSE IN PRN ×2 (09:34→23:04)
[2021-06-11] MEDS: CYANOCOBALAMIN (B-12) 1000 MCG/1 ML VIAL IM SCH (10:52)
[2021-06-11] MEDS: APIXABAN 5 MG TAB PO SCH ×2 (10:52→22:13)
[2021-06-11] MEDS: FUROSEMIDE 20 MG/2 ML VIAL IV SCH (10:52)
[2021-06-11] MEDS: ZINC SULFATE 220mg CAP or TAB PO SCH (10:52)
[2021-06-11] MEDS: DOXYCYCLINE 100 MG TAB/CAP PO SCH ×2 (10:52→22:13)
[2021-06-11] MEDS: CHOLECALCIFEROL (VITD3) 2,000 UNIT CAP/TAB PO SCH (10:53)
[2021-06-11] MEDS: ASCORBIC ACID 1,000 MG TAB PO SCH (10:53)
[2021-06-11 13:00] VITALS: BP 119/69
[2021-06-11] MEDS: REMDESIVIR 100mg 100 MG in SODIUM CHL 0.9% 230 ML IV SCH (16:53)
[2021-06-11 17:00] VITALS: BP 124/54
[2021-06-11 21:25] VITALS: BP 134/57
[2021-06-12 05:00] VITALS: BP 132/62
[2021-06-12] MEDS: LEVOTHYROXINE SODIUM 88 MCG TAB PO SCH (06:19)
[2021-06-12] MEDS: ACCU-CHEK COMFORT CURVE STRIP VI SCH ×3 (06:19→17:00)
[2021-06-12] MEDS: InsuLIN REG 1unit/0.01ml Soln (100units/ml) SC SCH ×3 (06:22→17:00)
[2021-06-12 06:48] LABS: Calcium 8.9 mg/dL (8.5-10.1); Potassium 3.7 mmol/L (3.5-5.1)
[2021-06-12 06:55] LABS: Albumin 2.8 g/dL (3.4-5.0); BUN/Creatinine Ratio 24.5; Bilirubin, Total 0.3 mg/dL (0.2-1.0); Total Protein 5.9 g/dL (6.4-8.2)
[2021-06-12 09:00] VITALS: BP 140/63
[2021-06-12] MEDS: ZINC SULFATE 220mg CAP or TAB PO SCH (10:14)
[2021-06-12] MEDS: CYANOCOBALAMIN (B-12) 1000 MCG/1 ML VIAL IM SCH (10:14)
[2021-06-12] MEDS: FUROSEMIDE 20 MG/2 ML VIAL IV SCH (10:14)
[2021-06-12] MEDS: DOXYCYCLINE 100 MG TAB/CAP PO SCH (10:15)
[2021-06-12] MEDS: CHOLECALCIFEROL (VITD3) 2,000 UNIT CAP/TAB PO SCH (10:15)
[2021-06-12] MEDS: ASCORBIC ACID 1,000 MG TAB PO SCH (10:15)
[2021-06-12] MEDS: APIXABAN 5 MG TAB PO SCH (10:30)
[2021-06-12 13:00] VITALS: BP 116/49
[2021-06-12 16:48] VITALS: BP 136/55
[2021-06-12] MEDS: REMDESIVIR 100mg 100 MG in SODIUM CHL 0.9% 230 ML IV SCH (16:48)
[2021-06-12] MEDS: BUDESONIDE (INHALATION) 180 MCG IH IN SCH (16:48)
[2021-06-12 17:06] VITALS: BP 136/55
== END 2021-06-12 18:22 | disposition home or self-care (01) | DRG 177 ==
LOC: ER 04:42 → TELE 10:52 → TELE-EAST 21:30
PROVIDERS: ADMIT Hospitalist; ATTEND Internal Medicine
PROC: XW033E5 Introduction of Remdesivir Anti-infective into Peripheral Vein, Percutaneous Approach, New Technology Group 5 (ICD-10-PCS; principal; 2021-06-08)
DX: U07.1 COVID-19 (principal); J12.82 Pneumonia due to coronavirus disease 2019; J96.01 Acute respiratory failure with hypoxia; I13.0 Hypertensive heart and chronic kidney disease with heart failure and stage 1 through stage 4 chronic kidney disease, or unspecified chronic kidney disease; E87.5 Hyperkalemia; N18.32 Chronic kidney disease, stage 3b; F32.A Depression, unspecified; I50.9 Heart failure, unspecified; F41.9 Anxiety disorder, unspecified; E03.9 Hypothyroidism, unspecified; E11.22 Type 2 diabetes mellitus with diabetic chronic kidney disease; Z82.0 Family history of epilepsy and other diseases of the nervous system; Z83.3 Family history of diabetes mellitus; Z86.718 Personal history of other venous thrombosis and embolism; Z90.49 Acquired absence of other specified parts of digestive tract; Z23 Encounter for immunization
CPT/HCPCS: 36415; 71045; 80053; 81001; 82043; 82306; 82570; 82607; 82728; 82962; 83036; 83615; 83735; 83880; 84132; 84156; 84300; 84484; 85025; 85379; 85610; 85730; 86141; 87426; 93005; 93306; 94640; 96365; 96375; 97116; 97163; 97530; G0378; J1815

== ENCOUNTER → 2021-10-09 | Outpatient (CLI) | payer OTHER, MEDICAID, MEDICARE ==
[~2021-10-09] MED LIST changes: +DULA1INJ SC; +FERR325T20 PO; +FURO40TA4 PO; +GLIP10TA9 PO; -GLIP5TAB12 PO; -METF-370 PO; +METF-929 PO; +ROSU1TAB14 PO
[2021-10-09 10:17] LABS: Basophils # (auto) 0.1 10 ^3/uL (0-0.2); Basophils % (auto) 0.9 % (0.0-2.0); Eosinophils # (auto) 0.5 10 ^3/uL (0-0.8); Eosinophils % (auto) 4.9 % (0.0-7.0); Hematocrit 34.7 % (41.0-53.0); Hemoglobin 11.7 g/dL (13.5-17.5); Lymphocytes # (auto) 2.1 10 ^3/uL (0.4-5.4); Lymphocytes % (auto) 20.3 % (10.0-50.0); Mean Corpuscular Hemoglobin 27.7 pg (28.0-32.0); Mean Corpuscular Hgb Conc. 33.8 g/dL (32.0-36.0); Monocytes # (auto) 0.5 10 ^3/uL (0-1.3); Monocytes % (auto) 4.8 % (0.0-12.0); Neutrophils # (auto) 7.3 10 ^3/uL (1.6-8.6); Neutrophils % (auto) 69.1 % (37.0-80.0); Red Blood Cells 4.23 10^6/uL (4.5-5.90); Red Cell Distribution Width 15.9 % (11.8-14.3); White Blood Cell 10.6 10^3/uL (4.4-10.8)
[2021-10-09 10:34] LABS: Alanine Aminotransferase 19 U/L (16-61); Albumin 3.2 g/dL (3.4-5.0); Anion Gap 9 (5-15); Blood Urea Nitrogen 28 mg/dL (7-18); Carbon Dioxide 25 mmol/L (21-32); Chloride 103 mmol/L (98-107); Glucose 108 mg/dL (74-106); Sodium 137 mmol/L (136-145)
[2021-10-09 10:46] LABS: Alkaline Phosphatase 88 U/L (45-117); Aspartate Aminotransferase 13 U/L (15-37); BUN/Creatinine Ratio 16.9; Bilirubin, Direct < 0.1 mg/dL (0-0.2); Bilirubin, Total 0.6 mg/dL (0.2-1.0); Cholesterol 104 mg/dL (< 200); GFR African American 52 mL/min; GFR Non-African American 43 mL/min; HDL Cholesterol 36 mg/dL (40-59); LDL Cholesterol 44 mg/dL (< 100); Total Protein 7.5 g/dL (6.4-8.2); Triglycerides 156 mg/dL (< 150)
== END | disposition home or self-care (01) ==
LOC: LAB 09:14
PROVIDERS: ATTEND Specialist
DX: D64.9 Anemia, unspecified (principal); E78.5 Hyperlipidemia, unspecified; E03.9 Hypothyroidism, unspecified; E11.8 Type 2 diabetes mellitus with unspecified complications; R94.5 Abnormal results of liver function studies; I10 Essential (primary) hypertension; I42.9 Cardiomyopathy, unspecified; S31.30XS Unspecified open wound of scrotum and testes, sequela
CPT/HCPCS: 36415; 80048; 80061; 80076; 83036; 84153; 84443; 85025

== ENCOUNTER → 2022-03-04 | Outpatient (CLI) | payer MEDICARE, MEDICAID ==
[2022-03-04 09:44] LABS: Basophils # (auto) 0.1 10 ^3/uL (0-0.2); Eosinophils # (auto) 0.5 10 ^3/uL (0-0.8); Lymphocytes # (auto) 2.1 10 ^3/uL (0.4-5.4); Mean Corpuscular Hemoglobin 26.1 pg (28.0-32.0); Monocytes # (auto) 0.6 10 ^3/uL (0-1.3); White Blood Cell 11.3 10^3/uL (4.4-10.8)
[2022-03-04 09:45] LABS: Eosinophils % (auto) 4.1 % (0.0-7.0); Hematocrit 35.6 % (41.0-53.0); Hemoglobin 11.4 g/dL (13.5-17.5); Mean Corpuscular Hgb Conc. 32.1 g/dL (32.0-36.0); Mean Corpuscular Volume 81.1 fL (80.0-100.0); Monocytes % (auto) 4.9 % (0.0-12.0); Neutrophils # (auto) 8.1 10 ^3/uL (1.6-8.6); Red Blood Cells 4.38 10^6/uL (4.5-5.90); Red Cell Distribution Width 16.5 % (11.8-14.3)
[2022-03-04 10:55] LABS: Albumin 3.1 g/dL (3.4-5.0); Calcium 9.5 mg/dL (8.5-10.1); Potassium 5.3 mmol/L (3.5-5.1)
[2022-03-04 10:59] LABS: BUN/Creatinine Ratio 17.6; Bilirubin, Total 0.2 mg/dL (0.2-1.0); Total Protein 6.6 g/dL (6.4-8.2)
[2022-03-04 11:35] LABS: Free T4 (Free Thyroxine) 1.48 ng/dL (0.89-1.76)
[2022-03-06 16:10] LABS: Urine Bacteria FEW /hpf (None Seen); Urine Blood TRACE /uL (Negative); Urine Specific Gravity 1.017 (1.001-1.035); Urine WBC 18 /hpf (0 - 3)
== END | disposition home or self-care (01) ==
LOC: LAB 09:17
PROVIDERS: ATTEND Internal Medicine
DX: E11.22 Type 2 diabetes mellitus with diabetic chronic kidney disease (principal); E03.9 Hypothyroidism, unspecified; Z79.899 Other long term (current) drug therapy
CPT/HCPCS: 36415; 80053; 80061; 81001; 82043; 82274; 82306; 82607; 83036; 84439; 84443; 85025

== ENCOUNTER → 2022-05-08 | Outpatient (CLI) | payer MEDICARE, MEDICAID ==
[2022-05-08 16:16] LABS: Basophils # (auto) 0.1 10 ^3/uL (0-0.2); Basophils % (auto) 1.1 % (0.0-2.0); Eosinophils # (auto) 0.4 10 ^3/uL (0-0.8); Hemoglobin 11.7 g/dL (13.5-17.5); Monocytes # (auto) 0.5 10 ^3/uL (0-1.3)
[2022-05-08 16:19] LABS: Eosinophils % (auto) 4.4 % (0.0-7.0); Hematocrit 36.1 % (41.0-53.0); Lymphocytes # (auto) 1.8 10 ^3/uL (0.4-5.4); Lymphocytes % (auto) 19.1 % (10.0-50.0); Mean Corpuscular Hgb Conc. 32.5 g/dL (32.0-36.0); Mean Corpuscular Volume 83.1 fL (80.0-100.0); Monocytes % (auto) 5.3 % (0.0-12.0); Neutrophils # (auto) 6.8 10 ^3/uL (1.6-8.6); Neutrophils % (auto) 70.1 % (37.0-80.0); Nucleated Red Blood Cells % 0.3 %; Red Blood Cells 4.34 10^6/uL (4.5-5.90); Red Cell Distribution Width 16.5 % (11.8-14.3); White Blood Cell 9.7 10^3/uL (4.4-10.8)
[2022-05-08 16:37] LABS: BUN/Creatinine Ratio 13.8; Calcium 9.7 mg/dL (8.5-10.1); Potassium 4.6 mmol/L (3.5-5.1)
== END | disposition home or self-care (01) ==
LOC: LAB 15:59
PROVIDERS: ATTEND Internal Medicine
DX: I10 Essential (primary) hypertension (principal); E11.22 Type 2 diabetes mellitus with diabetic chronic kidney disease
CPT/HCPCS: 36415; 80048; 85025

== ENCOUNTER → 2022-09-24 | Outpatient (CLI) | payer MEDICARE, MEDICAID ==
[2022-09-24 16:58] LABS: BUN/Creatinine Ratio 15.1 (10.0-20.0); Calcium 9.5 mg/dL (8.5-10.1); Potassium 4.2 mmol/L (3.5-5.1)
== END | disposition home or self-care (01) ==
LOC: LAB 16:01
PROVIDERS: ATTEND Internal Medicine
DX: E11.22 Type 2 diabetes mellitus with diabetic chronic kidney disease (principal); N18.9 Chronic kidney disease, unspecified; E55.9 Vitamin D deficiency, unspecified
CPT/HCPCS: 36415; 80048; 82043; 82306; 82607; 83036

== ENCOUNTER → 2023-03-14 | Outpatient (CLI) | payer MEDICARE, MEDICAID ==
[~2023-03-14] MED LIST changes: -LISI-716 PO; +LISI10TA34 PO
[2023-03-14 10:07] LABS: Urine Blood Negative /uL (Negative); Urine Clarity Clear (Clear); Urine Color Colorless (Yellow); Urine Protein, UAD Negative (Negative); Urine Specific Gravity 1.015 (1.001-1.035); Urine Urobilinogen Normal (Negative); Urine pH 5.5 (5.0-8.0)
[2023-03-14 10:49] LABS: Alanine Aminotransferase 21 U/L (7-40); Albumin 3.9 g/dL (3.2-4.8); Alkaline Phosphatase 116 U/L (46-116); Anion Gap 6 (5-15); Aspartate Aminotransferase 15 U/L (13-40); BUN/Creatinine Ratio 11.9 (10.0-20.0); Blood Urea Nitrogen 19 mg/dL (9-23); Calcium 9.8 mg/dL (8.5-10.1); Carbon Dioxide 24 mmol/L (20-30); Chloride 105 mmol/L (98-107); Cholesterol 102 mg/dL (< 200); Glucose 94 mg/dL (74-106); LDL Cholesterol 45 mg/dL (< 100); Potassium 5.3 mmol/L (3.5-5.1); Sodium 135 mmol/L (136-145); Triglycerides 125 mg/dL (< 150)
[2023-03-14 10:50] LABS: Bilirubin, Total 0.4 mg/dL (0.2-1.0); HDL Cholesterol 35 mg/dL (40-59); Total Protein 6.9 g/dL (5.7-8.2)
[2023-03-14 11:27] LABS: Free T4 (Free Thyroxine) 0.94 ng/dL (0.89-1.76)
== END | disposition home or self-care (01) ==
LOC: LAB 09:24
PROVIDERS: ATTEND Internal Medicine
DX: E11.22 Type 2 diabetes mellitus with diabetic chronic kidney disease (principal); N18.31 Chronic kidney disease, stage 3a
CPT/HCPCS: 36415; 80053; 80061; 81003; 82607; 83036; 84439; 84443; 84481

== ENCOUNTER 2023-10-09 10:46 | Inpatient (IN) | payer MEDICARE, MEDICAID ==
[~2023-10-09] VITALS: Ht 172.7 cm; Wt 115.9 kg
[~2023-10-09 10:46] MED LIST changes: -ROSU1TAB14 PO; +ROSU20TA56 PO
[2023-10-09 11:34] LABS: Basophils # (auto) 0.1 10 ^3/uL (0-0.2); Eosinophils # (auto) 0.3 10 ^3/uL (0-0.8); Lymphocytes # (auto) 1.5 10 ^3/uL (0.4-5.4); Neutrophils # (auto) 7.6 10 ^3/uL (1.6-8.6); Red Cell Distribution Width 17.6 % (11.8-14.3)
[2023-10-09 11:37] LABS: Eosinophils % (auto) 2.9 % (0.0-7.0); Hematocrit 32.3 % (41.0-53.0); Hemoglobin 10.3 g/dL (13.5-17.5); Lymphocytes % (auto) 15.3 % (10.0-50.0); Mean Corpuscular Hemoglobin 26.4 pg (28.0-32.0); Mean Corpuscular Hgb Conc. 31.8 g/dL (32.0-36.0); Mean Corpuscular Volume 83.1 fL (80.0-100.0); Monocytes # (auto) 0.6 10 ^3/uL (0-1.3); Monocytes % (auto) 5.6 % (0.0-12.0); Neutrophils % (auto) 75.2 % (37.0-80.0); Red Blood Cells 3.89 10^6/uL (4.5-5.90); White Blood Cell 10.1 10^3/uL (4.4-10.8)
[2023-10-09 11:47] LABS: Anion Gap 5 (5-15); Carbon Dioxide 22 mmol/L (20-30); Chloride 103 mmol/L (98-107); Potassium 4.9 mmol/L (3.5-5.1); Sodium 130 mmol/L (136-145)
[2023-10-09 11:48] LABS: Calcium 9.7 mg/dL (8.7-10.4)
[2023-10-09 11:53] LABS: BUN/Creatinine Ratio 13.9 (10.0-20.0); Blood Urea Nitrogen 47 mg/dL (9-23); Glucose 181 mg/dL (74-106); Lipase 78 U/L (12-53)
[2023-10-09] MEDS: SODIUM CHLORIDE 0.9% 500 ML IVB ONE (12:13)
[2023-10-09 12:16] LABS: Erythrocyte Sedimentation Rate 80 mm/hr (0-20)
[2023-10-09 12:47] VITALS: PULSE 73; RESP 16; O2SAT 96
[2023-10-09] MEDS ORDERED: DEXTROSE (50%) 50ML SYRG IV PRN (13:00)
[2023-10-09] MEDS ORDERED: ONDANSETRON HCL 4 MG/2 ML VIAL IV PRN (13:00)
[2023-10-09] MEDS: GASTROGRAFIN 120 ML SOL ONE (13:41)
[2023-10-09] MEDS ORDERED: LACTULOSE 20Gm/30ML SOLN PO PRN (13:45)
[2023-10-09 13:56] LABS: Triglycerides 93 mg/dL (< 150)
[2023-10-09 13:57] LABS: LDL Cholesterol 28 mg/dL (< 100)
[2023-10-09 13:58] LABS: Cholesterol 91 mg/dL (< 200); HDL Cholesterol 45 mg/dL (40-59)
[2023-10-09] MEDS: PANTOPRAZOLE 40 MG/10 ML VIAL INJ IV ONE (15:22)
[2023-10-09] MEDS: LACTULOSE 20Gm/30ML SOLN PO ONE (15:22)
[2023-10-09] MEDS: DOCUSATE SOD 100 MG CAP PO ONE (15:23)
[2023-10-09 17:00] VITALS: BP 97/46; PULSE 79; RESP 19; TEMP 97.4; O2SAT 95
[2023-10-09] MEDS: SODIUM CHLORIDE 0.9% 1,000 ML IV SCH (17:30)
[2023-10-09 17:32] VITALS: O2SAT 95
[2023-10-09] MEDS: InsuLIN REG 1unit/0.01ml Soln (100units/ml) SC SCH (18:00)
[2023-10-09] MEDS: ACCU-CHEK COMFORT CURVE STRIP VI SCH (18:09)
[2023-10-09 21:00] VITALS: BP 101/32; PULSE 80; RESP 19; TEMP 97.5; O2SAT 97
[2023-10-09] MEDS: DOCUSATE SOD 100 MG CAP PO SCH (21:09)
[2023-10-09] MEDS: ATORVASTATIN 20 MG TAB PO SCH (21:10)
[2023-10-10 05:00] VITALS: BP 125/62; PULSE 99; RESP 21; TEMP 97.7; O2SAT 95
[2023-10-10] MEDS: LEVOTHYROXINE SODIUM 88 MCG TAB PO SCH (05:33)
[2023-10-10 06:10] LABS: Basophils # (auto) 0.1 10 ^3/uL (0-0.2); Eosinophils # (auto) 0.2 10 ^3/uL (0-0.8); Hematocrit 31.7 % (41.0-53.0); Hemoglobin 10.2 g/dL (13.5-17.5); Lymphocytes # (auto) 1.4 10 ^3/uL (0.4-5.4); Lymphocytes % (auto) 14.6 % (10.0-50.0); Mean Corpuscular Hemoglobin 27.1 pg (28.0-32.0); Mean Corpuscular Hgb Conc. 32.3 g/dL (32.0-36.0); Monocytes # (auto) 0.6 10 ^3/uL (0-1.3); Monocytes % (auto) 6.5 % (0.0-12.0); Neutrophils % (auto) 75.9 % (37.0-80.0); Nucleated Red Blood Cells % 0.1 %; Red Blood Cells 3.77 10^6/uL (4.5-5.90); Red Cell Distribution Width 17.5 % (11.8-14.3); White Blood Cell 9.2 10^3/uL (4.4-10.8)
[2023-10-10 06:20] LABS: Chloride 110 mmol/L (98-107); Potassium 4.6 mmol/L (3.5-5.1); Sodium 137 mmol/L (136-145)
[2023-10-10 06:21] LABS: Anion Gap 6 (5-15); Calcium 9.7 mg/dL (8.5-10.1); Carbon Dioxide 21 mmol/L (20-30)
[2023-10-10 06:25] LABS: Glucose 150 mg/dL (74-106)
[2023-10-10 06:26] LABS: BUN/Creatinine Ratio 15.2 (10.0-20.0); Blood Urea Nitrogen 45 mg/dL (9-23)
[2023-10-10 09:00] VITALS: BP 108/50; PULSE 86; RESP 19; TEMP 98.3; O2SAT 94
[2023-10-10] MEDS: FERROUS SULFATE 325mg EC TAB PO SCH (10:24)
[2023-10-10] MEDS: FUROSEMIDE 40 MG TAB PO SCH (10:25)
[2023-10-10] MEDS: ENOXAPARIN SOD 30 MG/0.3 ML SYRINGE SC SCH (10:25)
[2023-10-10] MEDS: PANTOPRAZOLE 40 MG/10 ML VIAL INJ IV SCH (10:26)
[2023-10-10 12:36] LABS: Magnesium 1.8 mg/dL (1.6-2.6)
[2023-10-10 12:38] LABS: Phosphorus 4.9 mg/dL (2.4-5.1)
[2023-10-10] MEDS: SODIUM CHLORIDE 0.9% 1,000 ML IV SCH (15:15)
[2023-10-10 16:43] VITALS: BP 116/47; PULSE 80; RESP 18; TEMP 98.2; O2SAT 96
[2023-10-10 21:00] VITALS: BP 94/41; PULSE 94; RESP 16; TEMP 97.5; O2SAT 95
[2023-10-11 05:00] VITALS: BP 117/58; PULSE 86; RESP 16; TEMP 97.5; O2SAT 91
[2023-10-11 06:43] LABS: Chloride 110 mmol/L (98-107); Potassium 4.6 mmol/L (3.5-5.1)
[2023-10-11 06:44] LABS: Anion Gap 5 (5-15); Calcium 9.1 mg/dL (8.5-10.1); Carbon Dioxide 17 mmol/L (20-30)
[2023-10-11 06:49] LABS: BUN/Creatinine Ratio 10.8 (10.0-20.0); Glucose 135 mg/dL (74-106)
[2023-10-11 06:52] LABS: Blood Urea Nitrogen 26 mg/dL (9-23); Sodium 132 mmol/L (136-145)
[2023-10-11 09:00] VITALS: BP 120/48; PULSE 96; RESP 16; TEMP 97.3; O2SAT 95
[2023-10-11 13:00] VITALS: BP 106/70; PULSE 81; RESP 16; TEMP 97.7; O2SAT 98
[2023-10-11 13:08] LABS: Urine Bacteria MANY /hpf (None Seen); Urine Blood Negative /uL (Negative); Urine Clarity Clear (Clear); Urine Color Light-Yellow (Yellow); Urine Mucus FEW (None Seen); Urine Protein, UAD Negative (Negative); Urine Specific Gravity 1.008 (1.001-1.035); Urine Urobilinogen Normal (Negative); Urine WBC 15 /hpf (0 - 3)
[2023-10-11 13:13] LABS: Protein, Urine 12.4 mg/dL (0.0-11.9)
[2023-10-11 13:16] LABS: Creatinine, Urine 43.98 mg/dL (30.0-125.0); Urine Protein/Creatinine Ratio 0.28
[2023-10-11 17:00] VITALS: BP 117/61; PULSE 76; RESP 14; TEMP 97.7; O2SAT 98
[2023-10-11 20:00] VITALS: PULSE 85; RESP 18
[2023-10-11 21:00] VITALS: BP 108/40; PULSE 85; RESP 18; TEMP 97.8; O2SAT 94
[2023-10-12] VITALS (7 sets, daily range): BP systolic 97–127; BP diastolic 40–82; PULSE 60–98; RESP 17–22; TEMP 97.7–98.6; O2SAT 93–97
[2023-10-12] MEDS: SODIUM BICARB 50mEq/50ml Vial 50 ML in SOD CHL 0.45% 1,000 ML IV SCH (12:37)
[2023-10-13 04:52] VITALS: BP 108/36; PULSE 90; RESP 18; TEMP 97.8; O2SAT 93
[2023-10-13 06:49] LABS: Alanine Aminotransferase 29 U/L (7-40); Albumin 2.6 g/dL (3.2-4.8); Alkaline Phosphatase 105 U/L (46-116); Anion Gap 8 (5-15); Aspartate Aminotransferase 19 U/L (13-40); BUN/Creatinine Ratio 16.7 (10.0-20.0); Bilirubin, Total 0.5 mg/dL (0.2-1.0); Blood Urea Nitrogen 34 mg/dL (9-23); Calcium 8.9 mg/dL (8.7-10.4); Carbon Dioxide 21 mmol/L (20-30); Chloride 104 mmol/L (98-107); Glucose 122 mg/dL (74-106); Potassium 3.7 mmol/L (3.5-5.1); Sodium 133 mmol/L (136-145); Total Protein 5.1 g/dL (5.7-8.2)
[2023-10-13 06:57] LABS: Eosinophils # (auto) 0.3 10 ^3/uL (0-0.8); Eosinophils % (auto) 1.9 % (0.0-7.0); Hemoglobin 8.6 g/dL (13.5-17.5); Lymphocytes # (auto) 1.7 10 ^3/uL (0.4-5.4); Monocytes # (auto) 0.8 10 ^3/uL (0-1.3); Nucleated Red Blood Cells % 0.1 %
[2023-10-13 06:59] LABS: Basophils # (auto) 0 10 ^3/uL (0-0.2); Basophils % (auto) 0.3 % (0.0-2.0); Hematocrit 26.8 % (41.0-53.0); Lymphocytes % (auto) 12.2 % (10.0-50.0); Mean Corpuscular Hemoglobin 26.5 pg (28.0-32.0); Mean Corpuscular Hgb Conc. 32.2 g/dL (32.0-36.0); Mean Corpuscular Volume 82.4 fL (80.0-100.0); Monocytes % (auto) 5.9 % (0.0-12.0); Neutrophils % (auto) 79.7 % (37.0-80.0); Red Blood Cells 3.25 10^6/uL (4.5-5.90); Red Cell Distribution Width 16.8 % (11.8-14.3); White Blood Cell 13.9 10^3/uL (4.4-10.8)
[2023-10-13 08:31] VITALS: BP 107/51; PULSE 58; RESP 19; TEMP 98.1; O2SAT 91
[2023-10-13] MEDS: cefTRIAXone 1GM/50ML D5W 50 ML IV ONE (11:15)
[2023-10-13] MEDS ORDERED: CEFD300C2 PO (11:30)
[2023-10-13 12:40] VITALS: BP 106/49; PULSE 82; RESP 18; TEMP 98; O2SAT 92
[2023-10-13 14:06] VITALS: BP 107/51; TEMP 36.7
[2023-10-13 17:26] VITALS: BP 99/47; PULSE 63; RESP 18; TEMP 98; O2SAT 95
[2023-10-13 20:47] VITALS: BP 112/47; PULSE 69; RESP 19; TEMP 97.5; O2SAT 91
[2023-10-14] MEDS ORDERED: cefTRIAXone 1GM/50ML D5W 50 ML IV SCH (09:00)
[2023-10-14] MEDS ORDERED: ENOXAPARIN SOD 40 MG/0.4 ML SYRINGE SC SCH (10:00)
== END 2023-10-13 20:55 | disposition home health service (06) | DRG 393 ==
LOC: ER 10:46 → OVERFLOW 13:26 → WEST WING 15:57
PROVIDERS: ADMIT Registered Nurse; ATTEND Internal Medicine
PROC: 0D9670Z Drainage of Stomach with Drainage Device, Via Natural or Artificial Opening (ICD-10-PCS; principal; 2023-10-09)
DX: K43.6 Other and unspecified ventral hernia with obstruction, without gangrene (principal); N17.0 Acute kidney failure with tubular necrosis; E87.1 Hypo-osmolality and hyponatremia; L03.115 Cellulitis of right lower limb; I50.32 Chronic diastolic (congestive) heart failure; I13.0 Hypertensive heart and chronic kidney disease with heart failure and stage 1 through stage 4 chronic kidney disease, or unspecified chronic kidney disease; N39.0 Urinary tract infection, site not specified; E87.20 Acidosis, unspecified; E66.01 Morbid (severe) obesity due to excess calories; E03.9 Hypothyroidism, unspecified; N18.9 Chronic kidney disease, unspecified; E78.5 Hyperlipidemia, unspecified; E11.621 Type 2 diabetes mellitus with foot ulcer; E11.22 Type 2 diabetes mellitus with diabetic chronic kidney disease; E11.65 Type 2 diabetes mellitus with hyperglycemia; D63.1 Anemia in chronic kidney disease; K59.00 Constipation, unspecified; L97.519 Non-pressure chronic ulcer of other part of right foot with unspecified severity; Z82.0 Family history of epilepsy and other diseases of the nervous system; Z83.3 Family history of diabetes mellitus; Z68.38 Body mass index [BMI] 38.0-38.9, adult; Z86.718 Personal history of other venous thrombosis and embolism; Z90.49 Acquired absence of other specified parts of digestive tract; Z92.29 Personal history of other drug therapy
CPT/HCPCS: 36415; 71045; 73700; 74176; 74250; 76775; 80048; 80053; 80061; 81001; 82306; 82570; 82962; 83036; 83605; 83690; 83735; 83970; 84100; 84156; 84300; 84443; 85025; 85652; 87040; 93005; 96360; 97110; 97163; C9113; G0378; J1815

== ENCOUNTER 2023-11-24 17:49 | Inpatient (IN) | payer MEDICARE, MEDICAID ==
[~2023-11-24] VITALS: Ht 172.7 cm; Wt 112.5 kg
[~2023-11-24 17:49] MED LIST changes: +CEFD300C2 PO
[2023-11-24] MEDS: ALBUMIN 5% 250 ML IV ONE ×2 (19:02→22:15)
[2023-11-24 19:30] VITALS: PULSE 105; RESP 20; O2SAT 92
[2023-11-24 20:02] LABS: Alanine Aminotransferase 17 U/L (7-40); Albumin 2.7 g/dL (3.2-4.8); Alkaline Phosphatase 161 U/L (46-116); Anion Gap 7 (5-15); Aspartate Aminotransferase 25 U/L (13-40); BUN/Creatinine Ratio 13.8 (10.0-20.0); Bilirubin, Total 0.3 mg/dL (0.2-1.0); Blood Urea Nitrogen 27 mg/dL (9-23); Calcium 8.7 mg/dL (8.5-10.1); Carbon Dioxide 20 mmol/L (20-30); Chloride 105 mmol/L (98-107); Glucose 116 mg/dL (74-106); Magnesium 1.4 mg/dL (1.6-2.6); Potassium 4.4 mmol/L (3.5-5.1); Sodium 132 mmol/L (136-145); Total Protein 5.3 g/dL (5.7-8.2)
[2023-11-24 20:05] LABS: Basophils # (auto) 0.1 10 ^3/uL (0-0.2); Basophils % (auto) 0.8 % (0.0-2.0); Eosinophils # (auto) 0.4 10 ^3/uL (0-0.8); Eosinophils % (auto) 2.9 % (0.0-7.0); Hematocrit 35.5 % (41.0-53.0); Hemoglobin 11.4 g/dL (13.5-17.5); Lymphocytes % (auto) 14.7 % (10.0-50.0); Mean Corpuscular Volume 84.3 fL (80.0-100.0); Monocytes # (auto) 0.8 10 ^3/uL (0-1.3); Monocytes % (auto) 5.5 % (0.0-12.0); Neutrophils # (auto) 10.4 10 ^3/uL (1.6-8.6); Neutrophils % (auto) 76.1 % (37.0-80.0); Nucleated Red Blood Cells % 0.1 %; Red Blood Cells 4.22 10^6/uL (4.5-5.90); Red Cell Distribution Width 17.2 % (11.8-14.3); White Blood Cell 13.7 10^3/uL (4.4-10.8)
[2023-11-24] MEDS: CLINDAMYCIN 600MG IV 50 ML IV ONE (20:07)
[2023-11-24] MEDS: CEFEPIME 1GM/ 50ML 50 ML IV ONE (20:07)
[2023-11-24] MEDS: SODIUM CHLORIDE 0.9% 1,000 ML IV ONE ×2 (20:08→21:42)
[2023-11-24 20:18] LABS: INR 1.09 (0.9-1.15); Partial Thromboplastin Time 28.3 SEC (24.5-34.5); Prothrombin Time 11.5 sec (9.3-11.8)
[2023-11-24] MEDS ORDERED: ACETAMINOPHEN 325 MG TAB PO PRN (21:45)
[2023-11-24] MEDS ORDERED: ONDANSETRON HCL 4 MG/2 ML VIAL IV PRN (21:45)
[2023-11-24] MEDS ORDERED: MORPHINE SULFATE INJ 2 MG/ml SYRG IV PRN ×2 (21:45)
[2023-11-24] MEDS ORDERED: DOCUSATE SOD 100 MG CAP PO PRN (21:45)
[2023-11-24] MEDS ORDERED: HYDROcodone-ACET 5/325MG TAB PO PRN (21:45)
[2023-11-24] MEDS ORDERED: NITROGLYCERIN 0.4 MG SL TAB SL PRN (21:45)
[2023-11-24] MEDS: CEFEPIME 1GM/ 50ML 50 ML IV SCH (22:00)
[2023-11-24] MEDS: InsuLIN REG 1unit/0.01ml Soln (100units/ml) SC SCH (22:00)
[2023-11-24] MEDS ORDERED: DEXTROSE (50%) 50ML SYRG IV PRN (22:00)
[2023-11-24] MEDS: ACCU-CHEK COMFORT CURVE STRIP VI SCH (22:25)
[2023-11-24] MEDS: NOREPINEPHRINE 8 MG/250ML KIT 250 ML IV SCH (22:55)
[2023-11-25 01:01] LABS: Urine Bacteria MOD /hpf (None Seen); Urine Blood TRACE /uL (Negative); Urine Clarity Turbid (Clear); Urine Color Colorless (Yellow); Urine Protein, UAD Negative (Negative); Urine Specific Gravity 1.006 (1.001-1.035); Urine Urobilinogen Normal (Negative); Urine WBC 570 /hpf (0 - 3); Urine WBC Clumps PRESENT /hpf (None Seen); Urine pH 5.5 (5.0-9.0)
[2023-11-25] MEDS: CLINDAMYCIN 600MG IV 50 ML IV SCH (05:20)
[2023-11-25 06:01] LABS: Basophils # (auto) 0.1 10 ^3/uL (0-0.2); Lymphocytes % (auto) 18.5 % (10.0-50.0); Monocytes # (auto) 0.7 10 ^3/uL (0-1.3)
[2023-11-25 06:03] LABS: Basophils % (auto) 0.4 % (0.0-2.0); Eosinophils # (auto) 0.6 10 ^3/uL (0-0.8); Eosinophils % (auto) 4.5 % (0.0-7.0); Hematocrit 31.5 % (41.0-53.0); Hemoglobin 10.1 g/dL (13.5-17.5); Lymphocytes # (auto) 2.3 10 ^3/uL (0.4-5.4); Mean Corpuscular Hemoglobin 26.8 pg (28.0-32.0); Mean Corpuscular Hgb Conc. 31.9 g/dL (32.0-36.0); Mean Corpuscular Volume 83.9 fL (80.0-100.0); Monocytes % (auto) 5.8 % (0.0-12.0); Neutrophils % (auto) 70.8 % (37.0-80.0); Red Blood Cells 3.75 10^6/uL (4.5-5.90); White Blood Cell 12.7 10^3/uL (4.4-10.8)
[2023-11-25 06:20] LABS: Alanine Aminotransferase 13 U/L (7-40); Albumin 2.7 g/dL (3.2-4.8); Alkaline Phosphatase 130 U/L (46-116); Anion Gap 7 (5-15); Aspartate Aminotransferase 15 U/L (13-40); BUN/Creatinine Ratio 14.5 (10.0-20.0); Bilirubin, Total 0.3 mg/dL (0.2-1.0); Blood Urea Nitrogen 26 mg/dL (9-23); Calcium 8.3 mg/dL (8.5-10.1); Carbon Dioxide 21 mmol/L (20-30); Chloride 109 mmol/L (98-107); Glucose 83 mg/dL (74-106); Potassium 3.9 mmol/L (3.5-5.1); Sodium 137 mmol/L (136-145); Total Protein 4.8 g/dL (5.7-8.2)
[2023-11-25] MEDS: PANTOPRAZOLE 40 MG TAB PO SCH (06:28)
[2023-11-25] MEDS: LEVOTHYROXINE SODIUM 88 MCG TAB PO SCH (06:56)
[2023-11-25 08:00] VITALS: PULSE 88; RESP 16; O2SAT 98
[2023-11-25] MEDS: FUROSEMIDE 40 MG TAB PO SCH (10:00)
[2023-11-25] MEDS: FERROUS SULFATE 325mg EC TAB PO SCH (10:14)
[2023-11-25] MEDS: ENOXAPARIN SOD 40 MG/0.4 ML SYRINGE SC SCH (10:14)
[2023-11-25] MEDS: ATORVASTATIN 20 MG TAB PO SCH (10:14)
[2023-11-25 13:00] VITALS: BP 138/76; PULSE 76; RESP 17; TEMP 96.8; O2SAT 96
[2023-11-25] MEDS: PIPERACILLIN-TAZOB 3.375GM 100 ML IV ONE (13:15)
[2023-11-25] MEDS: NYSTATIN TOPICAL POWDER 15GM TOP ONE (13:15)
[2023-11-25 15:36] VITALS: BP 103/49; PULSE 64; RESP 21; TEMP 98.2; O2SAT 93
[2023-11-25] MEDS: CYANOCOBALAMIN (B-12) 1000 MCG/1 ML VIAL IM ONE (19:20)
[2023-11-25 20:00] VITALS: PULSE 86; PULSE 89; RESP 18; O2SAT 99
[2023-11-25 21:00] VITALS: BP 90/49; PULSE 86; RESP 18; TEMP 98.2; O2SAT 99
[2023-11-25] MEDS: NYSTATIN TOPICAL POWDER 15GM TOP SCH (22:00)
[2023-11-25] MEDS: PIPERACILLIN-TAZOB 3.375GM 100 ML IV SCH (22:19)
[2023-11-26] VITALS (8 sets, daily range): BP systolic 91–107; BP diastolic 38–46; PULSE 59–91; RESP 15–18; TEMP 97.4–98.1; O2SAT 93–99
[2023-11-26 05:42] LABS: Basophils # (auto) 0.1 10 ^3/uL (0-0.2); Basophils % (auto) 0.9 % (0.0-2.0); Eosinophils # (auto) 0.5 10 ^3/uL (0-0.8); Eosinophils % (auto) 5.7 % (0.0-7.0); Hematocrit 29.5 % (41.0-53.0); Hemoglobin 9.8 g/dL (13.5-17.5); Lymphocytes # (auto) 1.6 10 ^3/uL (0.4-5.4); Lymphocytes % (auto) 17.1 % (10.0-50.0); Mean Corpuscular Hemoglobin 27.4 pg (28.0-32.0); Mean Corpuscular Hgb Conc. 33.1 g/dL (32.0-36.0); Monocytes # (auto) 0.5 10 ^3/uL (0-1.3); Monocytes % (auto) 5.4 % (0.0-12.0); Neutrophils # (auto) 6.7 10 ^3/uL (1.6-8.6); Neutrophils % (auto) 70.9 % (37.0-80.0); Nucleated Red Blood Cells % 0.1 %; Red Blood Cells 3.56 10^6/uL (4.5-5.90); Red Cell Distribution Width 17.1 % (11.8-14.3); White Blood Cell 9.4 10^3/uL (4.4-10.8)
[2023-11-26 06:08] LABS: Alanine Aminotransferase 13 U/L (7-40); Albumin 2.4 g/dL (3.2-4.8); Alkaline Phosphatase 119 U/L (46-116); Anion Gap 5 (5-15); Aspartate Aminotransferase 16 U/L (13-40); BUN/Creatinine Ratio 15.2 (10.0-20.0); Bilirubin, Total 0.3 mg/dL (0.2-1.0); Blood Urea Nitrogen 27 mg/dL (9-23); Calcium 8.3 mg/dL (8.7-10.4); Carbon Dioxide 24 mmol/L (20-30); Chloride 109 mmol/L (98-107); Glucose 68 mg/dL (74-106); Potassium 3.8 mmol/L (3.5-5.1); Sodium 138 mmol/L (136-145); Total Protein 4.5 g/dL (5.7-8.2)
[2023-11-26] MEDS: SODIUM CHLORIDE 0.9% 1,000 ML IV SCH (10:15)
[2023-11-26] MEDS: LIDOCAINE 2% TOPICAL JELLY 5 ML URJT TOP ONE (14:15)
[2023-11-26] MEDS: OMNIPAQUE 12mg/ml 500ml ORAL SOLUTION PO ONE (15:17)
[2023-11-26 17:05] LABS: Amphetamine Screen, Urine Neg (NEGATIVE); Benzodiazephine Screen, Urine Neg (NEGATIVE)
[2023-11-26 17:06] LABS: Barbiturate Scree,Urine Neg (NEGATIVE); Cannabinoid Screen, Urine Neg (NEGATIVE); Cocaine Screen, Urine Neg (NEGATIVE); Opiate Scree,Urine Neg (NEGATIVE); Phencyclidine Screen, Urine Neg (NEGATIVE)
[2023-11-26 20:29] LABS: Magnesium 1.3 mg/dL (1.6-2.6)
[2023-11-26 20:30] LABS: Phosphorus 3.1 mg/dL (2.4-5.1)
[2023-11-26] MEDS: MAGNESIUM SULFATE 1GM/100ML 100 ML IV ONE (20:32)
[2023-11-26] MEDS: NYSTATIN TOPICAL POWDER 15GM TOP SCH (22:00)
[2023-11-27] VITALS (8 sets, daily range): BP systolic 91–115; BP diastolic 42–52; PULSE 75–90; RESP 16–20; TEMP 97.2–97.9; O2SAT 96–100
[2023-11-27 05:58] LABS: Basophils # (auto) 0.1 10 ^3/uL (0-0.2); Eosinophils # (auto) 0.5 10 ^3/uL (0-0.8); Hemoglobin 10.3 g/dL (13.5-17.5); Lymphocytes # (auto) 1.6 10 ^3/uL (0.4-5.4); Mean Corpuscular Volume 84.2 fL (80.0-100.0); Monocytes # (auto) 0.4 10 ^3/uL (0-1.3)
[2023-11-27 06:01] LABS: Basophils % (auto) 0.9 % (0.0-2.0); Eosinophils % (auto) 6.1 % (0.0-7.0); Hematocrit 31.9 % (41.0-53.0); Lymphocytes % (auto) 19.3 % (10.0-50.0); Mean Corpuscular Hemoglobin 27.1 pg (28.0-32.0); Mean Corpuscular Hgb Conc. 32.2 g/dL (32.0-36.0); Monocytes % (auto) 5.4 % (0.0-12.0); Neutrophils # (auto) 5.6 10 ^3/uL (1.6-8.6); Neutrophils % (auto) 68.3 % (37.0-80.0); Nucleated Red Blood Cells % 0.1 %; Red Blood Cells 3.79 10^6/uL (4.5-5.90); Red Cell Distribution Width 16.7 % (11.8-14.3); White Blood Cell 8.3 10^3/uL (4.4-10.8)
[2023-11-27 06:20] LABS: Alanine Aminotransferase 16 U/L (7-40); Albumin 2.5 g/dL (3.2-4.8); Alkaline Phosphatase 124 U/L (46-116); Anion Gap 5 (5-15); Aspartate Aminotransferase 21 U/L (13-40); BUN/Creatinine Ratio 13.2 (10.0-20.0); Blood Urea Nitrogen 24 mg/dL (9-23); Calcium 8.4 mg/dL (8.7-10.4); Carbon Dioxide 24 mmol/L (20-30); Chloride 107 mmol/L (98-107); Glucose 83 mg/dL (74-106); Potassium 4.2 mmol/L (3.5-5.1); Sodium 136 mmol/L (136-145)
[2023-11-27 06:21] LABS: Bilirubin, Total 0.3 mg/dL (0.2-1.0)
[2023-11-27 07:04] LABS: Total Protein 4.8 g/dL (5.7-8.2)
[2023-11-27] MEDS: ENOXAPARIN SOD 40 MG/0.4 ML SYRINGE SC SCH (09:19)
[2023-11-27] MEDS: CLINDAMYCIN 600MG IV 50 ML IV SCH (14:00)
[2023-11-27] MEDS ORDERED: VANCOMYCIN PER PHARMACY 0 MG IV SCH (16:00)
[2023-11-27 17:07] LABS: Magnesium 1.5 mg/dL (1.6-2.6)
[2023-11-27 17:08] LABS: Phosphorus 3.3 mg/dL (2.4-5.1)
[2023-11-27] MEDS: VANCOMYCIN 1GM/200ML 200 ML IV SCH (17:28)
[2023-11-27] MEDS: MAGNESIUM SULFATE 1GM/100ML 100 ML IV ONE (17:28)
[2023-11-27] MEDS: CEFEPIME 1GM/ 50ML 50 ML IV SCH (21:23)
[2023-11-28] VITALS (7 sets, daily range): BP systolic 113–133; BP diastolic 47–71; PULSE 84–104; RESP 14–21; TEMP 97.5–97.7; O2SAT 91–98
[2023-11-28 06:30] LABS: Chloride 108 mmol/L (98-107); Potassium 3.9 mmol/L (3.5-5.1); Sodium 136 mmol/L (136-145)
[2023-11-28 06:31] LABS: Anion Gap 4 (5-15); Calcium 8.2 mg/dL (8.7-10.4); Carbon Dioxide 24 mmol/L (20-30)
[2023-11-28 06:36] LABS: BUN/Creatinine Ratio 12.7 (10.0-20.0); Blood Urea Nitrogen 20 mg/dL (9-23); Glucose 90 mg/dL (74-106)
[2023-11-28 06:37] LABS: Basophils # (auto) 0.1 10 ^3/uL (0-0.2); Basophils % (auto) 0.9 % (0.0-2.0); Eosinophils # (auto) 0.6 10 ^3/uL (0-0.8); Eosinophils % (auto) 7.7 % (0.0-7.0); Hemoglobin 10.3 g/dL (13.5-17.5); Lymphocytes # (auto) 1.1 10 ^3/uL (0.4-5.4); Magnesium 1.6 mg/dL (1.6-2.6)
[2023-11-28 06:38] LABS: Phosphorus 2.6 mg/dL (2.4-5.1)
[2023-11-28 06:39] LABS: Hematocrit 31.1 % (41.0-53.0); Lymphocytes % (auto) 14.8 % (10.0-50.0); Mean Corpuscular Hemoglobin 27.9 pg (28.0-32.0); Mean Corpuscular Hgb Conc. 33.2 g/dL (32.0-36.0); Mean Corpuscular Volume 83.8 fL (80.0-100.0); Monocytes # (auto) 0.3 10 ^3/uL (0-1.3); Monocytes % (auto) 4.5 % (0.0-12.0); Neutrophils # (auto) 5.1 10 ^3/uL (1.6-8.6); Neutrophils % (auto) 72.1 % (37.0-80.0); Red Blood Cells 3.71 10^6/uL (4.5-5.90); Red Cell Distribution Width 16.4 % (11.8-14.3); White Blood Cell 7.1 10^3/uL (4.4-10.8)
[2023-11-28] MEDS ORDERED: PROPOFOL 10 MG/ML 20 ML IV ONE (10:22)
[2023-11-28] MEDS ORDERED: GLYCOPYRROLATE 0.2 MG/ML 1ML VIAL ONE (10:22)
[2023-11-28] MEDS ORDERED: DexAMETHasone SOD PHOS 10MG/1ML VIAL INJ ONE (10:22)
[2023-11-28] MEDS ORDERED: KETOROLAC TROMETH 30 MG/ML 1ML VIAL ONE (10:22)
[2023-11-28] MEDS ORDERED: LIDOCAINE 1% INJ PF 5ML AMP ONE (10:22)
[2023-11-28] MEDS ORDERED: ONDANSETRON HCL 4 MG/2 ML VIAL ONE (10:22)
[2023-11-28] MEDS ORDERED: KETAMINE 50mg/ML 1ml syringe ONE (10:26)
[2023-11-28] MEDS: BUPIVACAINE 0.25% INJ 50ML VIAL ONE (10:45)
[2023-11-28] MEDS: LIDOCAINE 1% HCL (LOCAL ANESTH.) INJ 20ML MDV ONE (10:45)
[2023-11-28] MEDS ORDERED: PHENYLEPHRINE HCL 10 MG/ML VL ONE (11:10)
[2023-11-28] MEDS ORDERED: SODIUM CHLORIDE LOCK 10 ML ONE (11:10)
[2023-11-28] MEDS ORDERED: HYDROmorphone HCL 2 MG/ML VL/or syr IV PRN (11:30)
[2023-11-28] MEDS ORDERED: hydrALAZINE HCL 20 MG/ML VL IV PRN (11:30)
[2023-11-28] MEDS ORDERED: FLUMAZENIL 0.1 MG/ML INJ 10ML MDV IV PRN (11:30)
[2023-11-28] MEDS ORDERED: fentaNYL CITRATE 100 MCG/2 ML VL IV PRN (11:30)
[2023-11-28] MEDS ORDERED: NALOXONE HCL 0.4 MG/ML VIAL IV PRN (11:30)
[2023-11-28] MEDS ORDERED: ONDANSETRON HCL 4 MG/2 ML VIAL IV PRN (11:30)
[2023-11-28] MEDS ORDERED: ePHEDrine SULFATE 50 MG/ML AMP IV PRN (11:30)
[2023-11-28] MEDS ORDERED: LABETALOL HCL 5 MG/ML ML 20ML VIAL IV PRN (12:00)
[2023-11-28] MEDS: LIDOCAINE 1% (LOCAL ANESTH.) PF 5ml SDV ID ONE (16:15)
[2023-11-28 16:45] LABS: INR 1.12 (0.9-1.15); Partial Thromboplastin Time 28.1 SEC (24.5-34.5); Prothrombin Time 11.8 sec (9.3-11.8)
[2023-11-28] MEDS: VANCOMYCIN 1GM/200ML 200 ML IV SCH (16:48)
[2023-11-28] MEDS: SODIUM CHLOR 0.9% PF (SALINE LOCK) 10ML VIAL/SYR IV SCH (22:24)
[2023-11-29 00:52] VITALS: BP 116/50; PULSE 92; RESP 18; TEMP 97.3; O2SAT 94
[2023-11-29 05:19] VITALS: BP 107/53; PULSE 85; RESP 18; TEMP 97.4; O2SAT 91
[2023-11-29 08:00] VITALS: PULSE 85; RESP 18; O2SAT 91
[2023-11-29 08:31] VITALS: BP 136/51; PULSE 80; RESP 20; TEMP 98.9; O2SAT 98
[2023-11-29 10:32] VITALS: BP 107/53; PULSE 85; RESP 18; TEMP 37.2; O2SAT 91
[2023-11-29 12:00] VITALS: BP 118/50; PULSE 75; RESP 20; TEMP 97.5; O2SAT 96
[2023-12-01 15:05] LABS: Hepatitis B Core Total AB Negative (Negative)
[2023-12-02 08:39] LABS: Hepatitis A Total Antibody Positive (Negative); Hepatitis B Surface Antibody Negative (Negative); Hepatitis B Surface Antigen Negative (Negative); Hepatitis C Antibody Negative (Negative)
== END 2023-11-29 13:30 | DRG 853 ==
LOC: ER 17:49 → EDUNIT# 17:49 → EDBD 17:49 → TELE 21:47 → TELE-EAST 11-25 09:11 → EAST 11-26 19:51
PROVIDERS: ADMIT Internal Medicine; ATTEND Internal Medicine
PROC: 02HV33Z Insertion of Infusion Device into Superior Vena Cava, Percutaneous Approach (ICD-10-PCS; 2023-11-28)
PROC: B548ZZA Ultrasonography of Superior Vena Cava, Guidance (ICD-10-PCS; 2023-11-28)
PROC: 0D9Q0ZZ Drainage of Anus, Open Approach (ICD-10-PCS; principal; 2023-11-28 10:45)
DX: A41.9 Sepsis, unspecified organism (principal); E43 Unspecified severe protein-calorie malnutrition; N17.0 Acute kidney failure with tubular necrosis; R65.21 Severe sepsis with septic shock; L03.315 Cellulitis of perineum; I50.32 Chronic diastolic (congestive) heart failure; I13.0 Hypertensive heart and chronic kidney disease with heart failure and stage 1 through stage 4 chronic kidney disease, or unspecified chronic kidney disease; L02.215 Cutaneous abscess of perineum; L02.411 Cutaneous abscess of right axilla; K61.0 Anal abscess; E11.22 Type 2 diabetes mellitus with diabetic chronic kidney disease; K52.9 Noninfective gastroenteritis and colitis, unspecified; N18.9 Chronic kidney disease, unspecified; E03.9 Hypothyroidism, unspecified; E78.5 Hyperlipidemia, unspecified; D63.8 Anemia in other chronic diseases classified elsewhere; K76.9 Liver disease, unspecified; K57.30 Diverticulosis of large intestine without perforation or abscess without bleeding; E66.01 Morbid (severe) obesity due to excess calories; L72.3 Sebaceous cyst; Z90.49 Acquired absence of other specified parts of digestive tract; Z86.718 Personal history of other venous thrombosis and embolism; Z82.0 Family history of epilepsy and other diseases of the nervous system; Z83.3 Family history of diabetes mellitus; Z68.37 Body mass index [BMI] 37.0-37.9, adult; Z79.4 Long term (current) use of insulin
CPT/HCPCS: 36415; 36569; 71045; 71250; 74176; 75989; 76705; 76881; 80048; 80053; 80307; 81001; 82105; 82270; 82306; 82378; 82565; 82607; 82962; 83036; 83540; 83550; 83605; 83735; 84100; 84443; 85025; 85048; 85610; 85730; 86301; 86704; 86706; 86708; 86803; 86850; 86900; 86901; 87040; 87045; 87070; 87075; 87077; 87081; 87086; 87088; 87186; 87205; 87340; 87427; 93005; 96365; 96366; 96367; 96368; 96372; 99291; G0378; J1100; J1815; J1885; J2001; J2405; J2543; J2704; J3490

== ENCOUNTER 2023-12-14 10:25 | Inpatient (IN) | payer MEDICARE, MEDICAID ==
[~2023-12-14] VITALS: Ht 172.7 cm; Wt 123.2 kg
[2023-12-14] MEDS ORDERED: SODIUM BICARB IV ONE (10:30)
[2023-12-14] MEDS ORDERED: SODIUM CHL 0.9% IV ONE (10:30)
[2023-12-14 11:12] LABS: Basophils # (auto) 0.1 10 ^3/uL (0-0.2); Eosinophils # (auto) 0.4 10 ^3/uL (0-0.8); Hemoglobin 10.2 g/dL (13.5-17.5); Monocytes # (auto) 0.8 10 ^3/uL (0-1.3)
[2023-12-14 11:14] LABS: Basophils % (auto) 0.9 % (0.0-2.0); Eosinophils % (auto) 2.9 % (0.0-7.0); Hematocrit 32.9 % (41.0-53.0); Lymphocytes # (auto) 2.1 10 ^3/uL (0.4-5.4); Lymphocytes % (auto) 15.7 % (10.0-50.0); Mean Corpuscular Hemoglobin 27.4 pg (28.0-32.0); Mean Corpuscular Hgb Conc. 31.2 g/dL (32.0-36.0); Mean Corpuscular Volume 87.9 fL (80.0-100.0); Monocytes % (auto) 6.1 % (0.0-12.0); Neutrophils # (auto) 9.8 10 ^3/uL (1.6-8.6); Neutrophils % (auto) 74.4 % (37.0-80.0); Nucleated Red Blood Cells % 0.1 %; Red Blood Cells 3.74 10^6/uL (4.5-5.90); Red Cell Distribution Width 18.3 % (11.8-14.3); White Blood Cell 13.1 10^3/uL (4.4-10.8)
[2023-12-14 11:27] LABS: Chloride 113 mmol/L (98-107); Potassium 4.3 mmol/L (3.5-5.1); Sodium 136 mmol/L (136-145)
[2023-12-14 11:28] LABS: Anion Gap 13.00001 (5-15)
[2023-12-14 11:29] LABS: Calcium 8.2 mg/dL (8.7-10.4)
[2023-12-14 11:33] LABS: Glucose 88 mg/dL (74-106)
[2023-12-14 11:34] LABS: Blood Urea Nitrogen 38 mg/dL (9-23); Magnesium 1.2 mg/dL (1.6-2.6)
[2023-12-14 11:41] LABS: Carbon Dioxide < 10 mmol/L (20-30)
[2023-12-14 14:00] VITALS: PULSE 88; RESP 15; O2SAT 98
[2023-12-14] MEDS ORDERED: SODIUM BICARB 50mEq/50ml Vial 50 ML in SODIUM CHLORIDE 0.9% 1,000 ML IV ONE (14:00)
[2023-12-14] MEDS ORDERED: VANCOMYCIN PER PHARMACY 0 MG IV SCH (14:45)
[2023-12-14] MEDS ORDERED: ACETAMINOPHEN 325 MG TAB PO PRN (14:45)
[2023-12-14] MEDS: SODIUM BICARB 50mEq/50ml Vial 50 ML in SODIUM CHLORIDE 0.9% 1,000 ML IV ONE ×2 (14:48→14:49)
[2023-12-14 15:08] LABS: Base Excess -15.5 mmol/L (-2.0-2.0)
[2023-12-14] MEDS: MAGNESIUM SULFATE 1GM/100ML 100 ML IV SCH (16:43)
[2023-12-14] MEDS: FUROSEMIDE 40 MG/4 ML VIAL IV SCH (16:44)
[2023-12-14 17:34] LABS: Creatinine, Urine 46.91 mg/dL (30.0-125.0)
[2023-12-14 18:04] LABS: Urine Bacteria FEW /hpf (None Seen); Urine Blood Negative /uL (Negative); Urine Budding Yeast MODERATE /hpf (None Seen); Urine Clarity Turbid (Clear); Urine Color Light-Yellow (Yellow); Urine Protein, UAD TRACE (Negative); Urine Specific Gravity 1.011 (1.001-1.035); Urine Urobilinogen Normal (Negative); Urine WBC 11 /hpf (0 - 3); Urine pH 5.5 (5.0-9.0)
[2023-12-14] MEDS: SODIUM BICARB 50mEq/50ml Vial 150 ML in SOD CHL 0.45% 1,000 ML IV ONE (18:58)
[2023-12-14] MEDS: VANCOMYCIN 1GM/200ML 200 ML IV ONE (18:58)
[2023-12-14 19:40] VITALS: PULSE 84; RESP 18; O2SAT 95
[2023-12-14] MEDS: PIPERACILLIN-TAZOB 3.375GM 100 ML IV SCH (21:48)
[2023-12-14] MEDS: PIPERACILLIN-TAZOB 3.375GM 100 ML IV ONE (21:48)
[2023-12-14] MEDS: APIXABAN 2.5 MG TAB PO SCH (21:48)
[2023-12-14] MEDS: SODIUM CHLOR 0.9% PF (SALINE LOCK) 10ML VIAL/SYR IV SCH (21:48)
[2023-12-14 22:16] VITALS: O2SAT 98
[2023-12-14 22:26] VITALS: BP 150/108; PULSE 79; RESP 17; O2SAT 99
[2023-12-15 02:01] VITALS: BP 121/75
[2023-12-15 05:48] VITALS: BP 121/44; PULSE 73; RESP 14; TEMP 97.5; O2SAT 98
[2023-12-15] MEDS: LEVOTHYROXINE SODIUM 88 MCG TAB PO SCH (05:55)
[2023-12-15] MEDS: CALCIUM GLUC 1,000mg/50ml-NS 50 ML IV ONE (09:42)
[2023-12-15] MEDS: MAGNESIUM SULFATE 1GM/100ML 100 ML IV SCH (09:42)
[2023-12-15 10:04] LABS: Basophils # (auto) 0.1 10 ^3/uL (0-0.2); Basophils % (auto) 0.9 % (0.0-2.0); Eosinophils # (auto) 0.6 10 ^3/uL (0-0.8); Eosinophils % (auto) 4.6 % (0.0-7.0); Hematocrit 32.4 % (41.0-53.0); Hemoglobin 10.1 g/dL (13.5-17.5); Lymphocytes % (auto) 16.6 % (10.0-50.0); Mean Corpuscular Hemoglobin 26.5 pg (28.0-32.0); Mean Corpuscular Hgb Conc. 31.3 g/dL (32.0-36.0); Mean Corpuscular Volume 84.7 fL (80.0-100.0); Monocytes # (auto) 0.8 10 ^3/uL (0-1.3); Monocytes % (auto) 6.8 % (0.0-12.0); Neutrophils # (auto) 8.8 10 ^3/uL (1.6-8.6); Neutrophils % (auto) 71.1 % (37.0-80.0); Nucleated Red Blood Cells % 0.1 %; Red Blood Cells 3.83 10^6/uL (4.5-5.90); Red Cell Distribution Width 17.9 % (11.8-14.3); White Blood Cell 12.3 10^3/uL (4.4-10.8)
[2023-12-15] MEDS: FERROUS SULFATE 325mg EC TAB PO SCH (10:08)
[2023-12-15] MEDS: SODIUM CHLORIDE 0.9% 1,000 ML IV SCH (10:30)
[2023-12-15 10:56] LABS: INR 1.44 (0.9-1.15); Partial Thromboplastin Time 35.3 SEC (24.5-34.5); Prothrombin Time 14.9 sec (9.3-11.8)
[2023-12-15] MEDS: glipiZIDE 5 MG TAB PO SCH (11:16)
[2023-12-15 12:08] LABS: Alanine Aminotransferase 10 U/L (7-40); Albumin 2.2 g/dL (3.2-4.8); Aspartate Aminotransferase 18 U/L (13-40); BUN/Creatinine Ratio 7.1 (10.0-20.0); Blood Urea Nitrogen 41 mg/dL (9-23); Glucose 87 mg/dL (74-106)
[2023-12-15 12:09] LABS: Bilirubin, Total < 0.2 mg/dL (0.2-1.0); Total Protein 4.4 g/dL (5.7-8.2)
[2023-12-15 12:11] VITALS: PULSE 93; RESP 20; O2SAT 95
[2023-12-15 12:11] LABS: Carbon Dioxide 11 mmol/L (20-30); Chloride 114 mmol/L (98-107); Potassium 4.5 mmol/L (3.5-5.1); Sodium 138 mmol/L (136-145)
[2023-12-15] MEDS ORDERED: PANT40TA2 PO (12:11)
[2023-12-15] MEDS ORDERED: ALBU108A5 INH (12:11)
[2023-12-15 12:15] LABS: Anion Gap 13 (5-15)
[2023-12-15 12:34] LABS: Alkaline Phosphatase 96 U/L (46-116); Calcium 8.3 mg/dL (8.7-10.4)
[2023-12-15] MEDS ORDERED: SODIUM BICARB 50mEq/50ml Vial 100 ML in D5W 5% 1,000 ML IV SCH (13:45)
[2023-12-15] MEDS: SODIUM BICARB 8.4% 50Meq/50ml SYR Vial IV ONE (14:17)
[2023-12-15 14:47] LABS: Base Excess -7.6 mmol/L (-2.0-2.0)
[2023-12-15] MEDS: AZITHROMYCIN 500MG/ 250ML 250 ML IV ONE (15:01)
[2023-12-15] MEDS: SODIUM BICARB 50mEq/50ml Vial 150 ML in D5W 5% 1,000 ML IV SCH (16:22)
[2023-12-15 19:45] VITALS: PULSE 79; PULSE 93; RESP 17; RESP 20; O2SAT 95; O2SAT 98
[2023-12-15] MEDS: ATORVASTATIN 20 MG TAB PO SCH (23:11)
[2023-12-15] MEDS: PIPERACILLIN-TAZOB 3.375GM 100 ML IV SCH (23:12)
[2023-12-16] VITALS (10 sets, daily range): BP systolic 100–129; BP diastolic 45–113; PULSE 57–105; RESP 17–92; TEMP 96.6–98.1; O2SAT 90–99
[2023-12-16] MEDS: HYDROmorphone HCL 2 MG/ML VL/or syr IV PRN (05:22)
[2023-12-16 05:44] LABS: Protein, Urine 94.9 mg/dL (0.0-11.9); Urine Bacteria FEW /hpf (None Seen); Urine Blood 2+ /uL (Negative); Urine Budding Yeast MANY /hpf (None Seen); Urine Clarity Turbid (Clear); Urine Color Colorless (Yellow); Urine Hyaline Cast FEW /lpf (0 - 2); Urine Protein, UAD 1+ (Negative); Urine Specific Gravity 1.009 (1.001-1.035); Urine Urobilinogen Normal (Negative); Urine WBC 37 /hpf (0 - 3); Urine WBC Clumps PRESENT /hpf (None Seen); Urine pH 5.5 (5.0-9.0)
[2023-12-16 05:46] LABS: Amphetamine Screen, Urine Neg (NEGATIVE); Barbiturate Scree,Urine Neg (NEGATIVE); Benzodiazephine Screen, Urine Neg (NEGATIVE); Cannabinoid Screen, Urine Neg (NEGATIVE); Cocaine Screen, Urine Neg (NEGATIVE); Creatinine, Urine 35.01 mg/dL (30.0-125.0); Opiate Scree,Urine Neg (NEGATIVE); Phencyclidine Screen, Urine Neg (NEGATIVE)
[2023-12-16 07:27] LABS: Basophils # (auto) 0.1 10 ^3/uL (0-0.2); Basophils % (auto) 0.5 % (0.0-2.0); Eosinophils # (auto) 0.4 10 ^3/uL (0-0.8); Eosinophils % (auto) 2.5 % (0.0-7.0); Hematocrit 32.3 % (41.0-53.0); Hemoglobin 10.3 g/dL (13.5-17.5); Lymphocytes # (auto) 1.4 10 ^3/uL (0.4-5.4); Lymphocytes % (auto) 8.9 % (10.0-50.0); Mean Corpuscular Hemoglobin 26.6 pg (28.0-32.0); Mean Corpuscular Hgb Conc. 31.8 g/dL (32.0-36.0); Mean Corpuscular Volume 83.6 fL (80.0-100.0); Monocytes # (auto) 1.1 10 ^3/uL (0-1.3); Monocytes % (auto) 6.8 % (0.0-12.0); Neutrophils % (auto) 81.3 % (37.0-80.0); Red Blood Cells 3.86 10^6/uL (4.5-5.90); Red Cell Distribution Width 17.6 % (11.8-14.3)
[2023-12-16] MEDS: AZITHROMYCIN 500MG/ 250ML 250 ML IV SCH (08:07)
[2023-12-16 08:22] LABS: Chloride 111 mmol/L (98-107); Potassium 3.8 mmol/L (3.5-5.1); Sodium 140 mmol/L (136-145)
[2023-12-16 08:23] LABS: Anion Gap 13 (5-15); Calcium 8.1 mg/dL (8.7-10.4); Carbon Dioxide 16 mmol/L (20-30)
[2023-12-16 08:28] LABS: Blood Urea Nitrogen 35 mg/dL (9-23); Glucose 104 mg/dL (74-106)
[2023-12-16] MEDS ORDERED: CALCIUM GLUC 1,000mg/50ml-NS 50 ML IV ONE (09:45)
[2023-12-16] MEDS: LINEZOLID 600MG/300ML 300 ML IV SCH (11:43)
[2023-12-16] MEDS ORDERED: MEROPENEM 1GM IVPB 50 ML IV SCH (14:00)
[2023-12-16] MEDS: FUROSEMIDE 20 MG/2 ML VIAL IV ONE (15:26)
[2023-12-16] MEDS: SODIUM BICARB 50mEq/50ml Vial 150 ML in D5W 5% 1,000 ML IV SCH (15:26)
[2023-12-16] MEDS: FUROSEMIDE 20 MG/2 ML VIAL IV SCH (18:54)
[2023-12-16] MEDS: MEROPENEM 500MG IVPB 50 ML IV SCH (20:17)
[2023-12-17] VITALS (9 sets, daily range): BP systolic 93–147; BP diastolic 42–123; PULSE 90–106; RESP 18–20; TEMP 97.8–98.6; O2SAT 93–95
[2023-12-17] MEDS: MEROPENEM 500MG IVPB 50 ML IV SCH (07:58)
[2023-12-17] MEDS: FUROSEMIDE 20 MG/2 ML VIAL IV ONE (11:22)
[2023-12-17 11:27] LABS: Basophils # (auto) 0.1 10 ^3/uL (0-0.2); Basophils % (auto) 0.9 % (0.0-2.0); Eosinophils # (auto) 0.4 10 ^3/uL (0-0.8); Eosinophils % (auto) 3.4 % (0.0-7.0); Hematocrit 25.3 % (41.0-53.0); Hemoglobin 8.4 g/dL (13.5-17.5); Lymphocytes # (auto) 1.1 10 ^3/uL (0.4-5.4); Lymphocytes % (auto) 9.6 % (10.0-50.0); Mean Corpuscular Hemoglobin 26.7 pg (28.0-32.0); Mean Corpuscular Hgb Conc. 33.2 g/dL (32.0-36.0); Mean Corpuscular Volume 80.5 fL (80.0-100.0); Monocytes # (auto) 0.8 10 ^3/uL (0-1.3); Neutrophils # (auto) 9.4 10 ^3/uL (1.6-8.6); Neutrophils % (auto) 79.1 % (37.0-80.0); Red Blood Cells 3.14 10^6/uL (4.5-5.90); Red Cell Distribution Width 17.6 % (11.8-14.3); White Blood Cell 11.9 10^3/uL (4.4-10.8)
[2023-12-17 12:08] LABS: Alanine Aminotransferase 11 U/L (7-40); Albumin 1.8 g/dL (3.2-4.8); Alkaline Phosphatase 87 U/L (46-116); Anion Gap 9 (5-15); Aspartate Aminotransferase 15 U/L (13-40); BUN/Creatinine Ratio 9.4 (10.0-20.0); Bilirubin, Total 0.2 mg/dL (0.2-1.0); Calcium 7.7 mg/dL (8.7-10.4); Carbon Dioxide 24 mmol/L (20-30); Chloride 105 mmol/L (98-107); Glucose 132 mg/dL (74-106); Magnesium 1.6 mg/dL (1.6-2.6); Potassium 3.4 mmol/L (3.5-5.1); Sodium 138 mmol/L (136-145); Total Protein 3.4 g/dL (5.7-8.2)
[2023-12-17 12:17] LABS: Blood Urea Nitrogen 55 mg/dL (9-23)
[2023-12-17 15:47] LABS: Urine Bacteria FEW /hpf (None Seen); Urine Blood 2+ /uL (Negative); Urine Budding Yeast MANY /hpf (None Seen); Urine Clarity Turbid (Clear); Urine Color Colorless (Yellow); Urine Protein, UAD 2+ (Negative); Urine Specific Gravity 1.012 (1.001-1.035); Urine Urobilinogen Normal (Negative); Urine WBC 63 /hpf (0 - 3); Urine pH 5.5 (5.0-9.0)
[2023-12-17] MEDS: D5W/SOD CHL 0.45% 1,000 ML IV SCH (16:34)
[2023-12-17] MEDS: FUROSEMIDE 40 MG/4 ML VIAL IV SCH (16:34)
[2023-12-17] MEDS: POTASSIUM CHL 20MEQ/100ML 100 ML IV SCH (18:19)
[2023-12-17] MEDS: FLUCONAZOLE 200MG/100ML 100 ML IV ONE (18:19)
[2023-12-17 20:47] LABS: Magnesium 1.6 mg/dL (1.6-2.6)
[2023-12-17 20:57] LABS: CRP High Sensitivity 5.42 mg/dL (<1.0)
[2023-12-17 21:21] LABS: Lactic Acid w/Reflex 2.3 mmol/L (0.4-2.0)
[2023-12-17] MEDS: SODIUM CHLORIDE 0.9% 1,000 ML IV ONE (22:07)
[2023-12-17 22:15] LABS: Erythrocyte Sedimentation Rate 14 mm/hr (0-20)
[2023-12-18] VITALS (8 sets, daily range): BP systolic 96–152; BP diastolic 44–109; PULSE 94–106; RESP 17–20; TEMP 97.1–97.8; O2SAT 90–100
[2023-12-18 05:40] LABS: Basophils # (auto) 0.1 10 ^3/uL (0-0.2); Basophils % (auto) 0.5 % (0.0-2.0); Eosinophils # (auto) 0.5 10 ^3/uL (0-0.8); Eosinophils % (auto) 4.5 % (0.0-7.0); Hematocrit 26.3 % (41.0-53.0); Hemoglobin 8.9 g/dL (13.5-17.5); Lymphocytes # (auto) 1.6 10 ^3/uL (0.4-5.4); Lymphocytes % (auto) 15.8 % (10.0-50.0); Mean Corpuscular Hemoglobin 27.8 pg (28.0-32.0); Mean Corpuscular Volume 81.8 fL (80.0-100.0); Monocytes # (auto) 0.7 10 ^3/uL (0-1.3); Neutrophils # (auto) 7.4 10 ^3/uL (1.6-8.6); Neutrophils % (auto) 72.2 % (37.0-80.0); Nucleated Red Blood Cells % 0.1 %; Red Blood Cells 3.21 10^6/uL (4.5-5.90); Red Cell Distribution Width 17.5 % (11.8-14.3); White Blood Cell 10.2 10^3/uL (4.4-10.8)
[2023-12-18 05:57] LABS: Alanine Aminotransferase 10 U/L (7-40); Albumin 1.8 g/dL (3.2-4.8); Alkaline Phosphatase 87 U/L (46-116); Anion Gap 12 (5-15); Aspartate Aminotransferase 15 U/L (13-40); BUN/Creatinine Ratio 6.6 (10.0-20.0); Calcium 7.3 mg/dL (8.7-10.4); Carbon Dioxide 23 mmol/L (20-30); Chloride 102 mmol/L (98-107); Glucose 139 mg/dL (74-106); Potassium 3.4 mmol/L (3.5-5.1); Sodium 137 mmol/L (136-145)
[2023-12-18 05:58] LABS: Bilirubin, Total 0.2 mg/dL (0.2-1.0); Total Protein 3.7 g/dL (5.7-8.2)
[2023-12-18] MEDS: HYDROcodone-ACET 5/325MG TAB PO PRN (05:59)
[2023-12-18 06:02] LABS: Blood Urea Nitrogen 40 mg/dL (9-23)
[2023-12-18] MEDS: PANTOPRAZOLE 40 MG TAB PO ONE (07:15)
[2023-12-18 08:26] LABS: Creatinine, Urine 64.69 mg/dL (30.0-125.0)
[2023-12-18] MEDS: FLUCONAZOLE 200MG/100ML 100 ML IV SCH (10:22)
[2023-12-18] MEDS: MAGNESIUM OXIDE 400 MG TAB PO SCH (10:23)
[2023-12-18] MEDS: POTASSIUM CHL 20 Meq TABLET PO SCH (10:23)
[2023-12-18] MEDS: CALCIUM W/VIT D (600MG/400IU) TAB PO SCH (10:23)
[2023-12-18] MEDS: FLUCONAZOLE 100 MG TAB PO ONE (16:02)
[2023-12-18] MEDS: AZITHROMYCIN 250 MG TAB PO ONE (16:02)
[2023-12-18] MEDS: SODIUM CHLORIDE 0.9% 500 ML IV ONE (16:03)
[2023-12-18] MEDS: ALBUMIN 25% 100 ML IV ONE ×2 (16:05→22:40)
[2023-12-18 19:31] LABS: Lactic Acid w/Reflex 3.6 mmol/L (0.4-2.0)
[2023-12-18] MEDS ORDERED: traMADol HCL 50 MG TAB PO PRN (19:45)
[2023-12-19] VITALS (18 sets, daily range): BP systolic 102–132; BP diastolic 42–78; PULSE 90–109; RESP 16–20; TEMP 97.4–98.6; O2SAT 91–100
[2023-12-19] MEDS: ALBUTEROL SULF 2.5 MG/0.5ML(0.5%) NEB SOLN NEB SCH (01:17)
[2023-12-19] MEDS: IPRATROPIUM BROM 0.5 MG/2.5ML INH SOL ONE (01:18)
[2023-12-19] MEDS: IPRATROPIUM BROM 0.5 MG/2.5ML INH SOL NEB SCH (01:18)
[2023-12-19] MEDS: ALBUTEROL SULF 2.5 MG/0.5ML(0.5%) NEB SOLN ONE (01:18)
[2023-12-19] MEDS: PANTOPRAZOLE 40 MG TAB PO SCH (05:03)
[2023-12-19 06:06] LABS: Basophils # (auto) 0 10 ^3/uL (0-0.2); Basophils % (auto) 0.3 % (0.0-2.0); Eosinophils # (auto) 0.2 10 ^3/uL (0-0.8); Hematocrit 25.9 % (41.0-53.0)
[2023-12-19 06:08] LABS: Eosinophils % (auto) 1.1 % (0.0-7.0); Lymphocytes % (auto) 10.9 % (10.0-50.0); Monocytes % (auto) 6.4 % (0.0-12.0); Neutrophils % (auto) 81.3 % (37.0-80.0); White Blood Cell 15.3 10^3/uL (4.4-10.8)
[2023-12-19 06:09] LABS: Hemoglobin 8.6 g/dL (13.5-17.5); Lymphocytes # (auto) 1.7 10 ^3/uL (0.4-5.4); Mean Corpuscular Hemoglobin 27.2 pg (28.0-32.0); Mean Corpuscular Hgb Conc. 33.1 g/dL (32.0-36.0); Mean Corpuscular Volume 82.3 fL (80.0-100.0); Neutrophils # (auto) 12.4 10 ^3/uL (1.6-8.6); Red Blood Cells 3.15 10^6/uL (4.5-5.90); Red Cell Distribution Width 17.5 % (11.8-14.3)
[2023-12-19 06:17] LABS: Chloride 101 mmol/L (98-107); Potassium 3.7 mmol/L (3.5-5.1); Sodium 133 mmol/L (136-145)
[2023-12-19 06:18] LABS: Anion Gap 11 (5-15); Carbon Dioxide 21 mmol/L (20-30)
[2023-12-19 06:23] LABS: Glucose 144 mg/dL (74-106)
[2023-12-19 06:24] LABS: BUN/Creatinine Ratio 6.2 (10.0-20.0); Blood Urea Nitrogen 37 mg/dL (9-23); Magnesium 1.5 mg/dL (1.6-2.6)
[2023-12-19 06:32] LABS: Lactic Acid w/Reflex 2.9 mmol/L (0.4-2.0)
[2023-12-19] MEDS: BUDESONIDE (INHALATION) 0.5 MG/2 ML NEB NEB SCH (07:34)
[2023-12-19] MEDS: AZITHROMYCIN 250 MG TAB PO SCH (10:32)
[2023-12-19] MEDS: FLUCONAZOLE 100 MG TAB PO SCH (10:32)
[2023-12-19] MEDS ORDERED: POTASSIUM CHL 20MEQ/100ML 100 ML IV PRN (14:00)
[2023-12-19] MEDS: FUROSEMIDE INJECTION 100 MG in D5W 5% 100 ML IV SCH (16:27)
[2023-12-19] MEDS: MAGNESIUM SULFATE 1GM/100ML 100 ML IV SCH (16:49)
[2023-12-19] MEDS: ALBUMIN 25% 100 ML IV ONE (18:45)
[2023-12-19] MEDS: SODIUM CHLORIDE 0.9% 1,000 ML IV SCH (19:13)
[2023-12-19 20:31] LABS: Lactic Acid w/Reflex 3.3 mmol/L (0.4-2.0)
[2023-12-20] VITALS (18 sets, daily range): BP systolic 111–147; BP diastolic 38–82; PULSE 83–108; RESP 17–20; TEMP 97.3–98.3; O2SAT 91–100
[2023-12-20] MEDS: ALBUMIN 25% 100 ML IV SCH (00:03)
[2023-12-20] MEDS: D5W 5% 100 ML IV ONE (00:15)
[2023-12-20] MEDS: FUROSEMIDE 100 MG/10ML VIAL IV ONE (00:15)
[2023-12-20] MEDS: DOPamine 1600MCG/ML D5W 250 ML IV SCH (01:06)
[2023-12-20] MEDS: METOPROLOL TARTRATE 1MG/1ML-5ML VIAL IV ONE (02:04)
[2023-12-20] MEDS ORDERED: AMIODARONE 450mg/250ml AE 250 ML IV SCH (04:45)
[2023-12-20] MEDS: AMIODARONE BOLUS KIT 100 ML IV ONE (04:58)
[2023-12-20] MEDS: AMIODARONE 450mg/250ml AE 250 ML IV SCH ×2 (05:19→10:45)
[2023-12-20] MEDS: metOLazone 5 MG TAB PO ONE (08:23)
[2023-12-20 11:18] LABS: Basophils # (auto) 0 10 ^3/uL (0-0.2); Eosinophils # (auto) 0.2 10 ^3/uL (0-0.8); Hematocrit 22.9 % (41.0-53.0); Hemoglobin 7.7 g/dL (13.5-17.5); Mean Corpuscular Hgb Conc. 33.7 g/dL (32.0-36.0); Monocytes # (auto) 0.5 10 ^3/uL (0-1.3); Neutrophils # (auto) 7.9 10 ^3/uL (1.6-8.6); White Blood Cell 9.6 10^3/uL (4.4-10.8)
[2023-12-20 11:20] LABS: Basophils % (auto) 0.4 % (0.0-2.0); Eosinophils % (auto) 2.1 % (0.0-7.0); Lymphocytes # (auto) 0.9 10 ^3/uL (0.4-5.4); Lymphocytes % (auto) 9.2 % (10.0-50.0); Mean Corpuscular Hemoglobin 27.3 pg (28.0-32.0); Mean Corpuscular Volume 81.1 fL (80.0-100.0); Monocytes % (auto) 5.3 % (0.0-12.0); Red Blood Cells 2.83 10^6/uL (4.5-5.90); Red Cell Distribution Width 17.4 % (11.8-14.3)
[2023-12-20 11:30] LABS: Chloride 101 mmol/L (98-107); Potassium 3.8 mmol/L (3.5-5.1); Sodium 132 mmol/L (136-145)
[2023-12-20 11:31] LABS: Anion Gap 9 (5-15); Calcium 8.2 mg/dL (8.7-10.4); Carbon Dioxide 22 mmol/L (20-30)
[2023-12-20 11:36] LABS: BUN/Creatinine Ratio 7.3 (10.0-20.0); Blood Urea Nitrogen 43 mg/dL (9-23); Glucose 200 mg/dL (74-106)
[2023-12-20 11:37] LABS: Magnesium 1.7 mg/dL (1.6-2.6)
[2023-12-20 11:42] LABS: Lactic Acid w/Reflex 2.5 mmol/L (0.4-2.0)
[2023-12-20] MEDS: POTASSIUM CHL 20MEQ/100ML 100 ML IV SCH (13:11)
[2023-12-20] MEDS: MAGNESIUM SULFATE 1GM/100ML 100 ML IV ONE (13:11)
[2023-12-20] MEDS: ONDANSETRON HCL 4 MG/2 ML VIAL IV PRN (13:40)
[2023-12-20] MEDS: SODIUM CHLORIDE 0.9% 500 ML IV ONE (16:02)
[2023-12-20] MEDS: ALBUTEROL SULF 2.5 MG/0.5ML(0.5%) NEB SOLN ONE (17:48)
[2023-12-20] MEDS: IPRATROPIUM BROM 0.5 MG/2.5ML INH SOL ONE (17:48)
[2023-12-20 18:08] LABS: Lactic Acid w/Reflex 2.5 mmol/L (0.4-2.0)
[2023-12-20] MEDS: ALBUMIN 25% 50 ML IV ONE (18:18)
[2023-12-20] MEDS: BUDESONIDE (INHALATION) 0.5 MG/2 ML NEB ONE (21:45)
[2023-12-21] VITALS (23 sets, daily range): BP systolic 89–126; BP diastolic 43–81; PULSE 52–140; RESP 14–22; TEMP 97.4–98.6; O2SAT 84–100
[2023-12-21 06:08] LABS: Basophils # (auto) 0 10 ^3/uL (0-0.2); Basophils % (auto) 0.2 % (0.0-2.0); Eosinophils # (auto) 0.2 10 ^3/uL (0-0.8); Hematocrit 24.2 % (41.0-53.0); Hemoglobin 7.9 g/dL (13.5-17.5); Lymphocytes # (auto) 0.7 10 ^3/uL (0.4-5.4); Neutrophils # (auto) 9.9 10 ^3/uL (1.6-8.6); White Blood Cell 11.3 10^3/uL (4.4-10.8)
[2023-12-21 06:12] LABS: Eosinophils % (auto) 1.7 % (0.0-7.0); Lymphocytes % (auto) 6.5 % (10.0-50.0); Mean Corpuscular Hgb Conc. 32.7 g/dL (32.0-36.0); Mean Corpuscular Volume 82.6 fL (80.0-100.0); Monocytes # (auto) 0.5 10 ^3/uL (0-1.3); Monocytes % (auto) 4.6 % (0.0-12.0); Red Blood Cells 2.93 10^6/uL (4.5-5.90); Red Cell Distribution Width 17.5 % (11.8-14.3)
[2023-12-21 06:29] LABS: Anion Gap 13 (5-15); Carbon Dioxide 20 mmol/L (20-30); Chloride 97 mmol/L (98-107); Potassium 4.4 mmol/L (3.5-5.1); Sodium 130 mmol/L (136-145)
[2023-12-21 06:30] LABS: Calcium 8.5 mg/dL (8.7-10.4)
[2023-12-21 06:32] LABS: INR 1.51 (0.9-1.15); Partial Thromboplastin Time 50.4 SEC (24.5-34.5); Prothrombin Time 15.5 sec (9.3-11.8)
[2023-12-21 06:34] LABS: Glucose 177 mg/dL (74-106)
[2023-12-21 06:35] LABS: BUN/Creatinine Ratio 6.1 (10.0-20.0); Blood Urea Nitrogen 36 mg/dL (9-23); Magnesium 2.1 mg/dL (1.6-2.6)
[2023-12-21 06:37] LABS: Phosphorus 3.7 mg/dL (2.4-5.1)
[2023-12-21] MEDS: ALBUMIN 25% 100 ML IV ONE (22:17)
[2023-12-22] VITALS (21 sets, daily range): BP systolic 100–128; BP diastolic 52–87; PULSE 71–144; RESP 16–20; TEMP 97.5–98; O2SAT 92–98
[2023-12-22 05:58] LABS: Basophils # (auto) 0 10 ^3/uL (0-0.2); Basophils % (auto) 0.3 % (0.0-2.0); Eosinophils # (auto) 0.2 10 ^3/uL (0-0.8); Eosinophils % (auto) 1.7 % (0.0-7.0); Hematocrit 25.9 % (41.0-53.0); Hemoglobin 8.7 g/dL (13.5-17.5); Lymphocytes # (auto) 0.9 10 ^3/uL (0.4-5.4); Lymphocytes % (auto) 8.1 % (10.0-50.0); Mean Corpuscular Hemoglobin 27.6 pg (28.0-32.0); Mean Corpuscular Hgb Conc. 33.5 g/dL (32.0-36.0); Mean Corpuscular Volume 82.2 fL (80.0-100.0); Monocytes # (auto) 0.5 10 ^3/uL (0-1.3); Monocytes % (auto) 5.1 % (0.0-12.0); Neutrophils # (auto) 9.1 10 ^3/uL (1.6-8.6); Neutrophils % (auto) 84.8 % (37.0-80.0); Red Blood Cells 3.14 10^6/uL (4.5-5.90); Red Cell Distribution Width 17.4 % (11.8-14.3); White Blood Cell 10.7 10^3/uL (4.4-10.8)
[2023-12-22 06:06] LABS: Anion Gap 10 (5-15); Carbon Dioxide 20 mmol/L (20-30); Chloride 99 mmol/L (98-107); Potassium 4.5 mmol/L (3.5-5.1); Sodium 129 mmol/L (136-145)
[2023-12-22 06:07] LABS: Calcium 9.2 mg/dL (8.7-10.4)
[2023-12-22 06:12] LABS: BUN/Creatinine Ratio 5.7 (10.0-20.0); Blood Urea Nitrogen 32 mg/dL (9-23); Glucose 157 mg/dL (74-106)
[2023-12-22] MEDS: ALBUMIN 25% 100 ML IV SCH (10:36)
[2023-12-22] MEDS: guaiFENesin 200 MG/10 ML UD PO PRN (12:29)
[2023-12-22] MEDS: metOLazone 5 MG TAB PO ONE (12:30)
[2023-12-23] VITALS (38 sets, daily range): BP systolic 72–137; BP diastolic 28–92; PULSE 86–117; RESP 10–26; TEMP 97.7–98.3; O2SAT 87–100
[2023-12-23 06:21] LABS: Chloride 96 mmol/L (98-107); Potassium 4.1 mmol/L (3.5-5.1); Sodium 130 mmol/L (136-145)
[2023-12-23 06:22] LABS: Anion Gap 11 (5-15); Carbon Dioxide 23 mmol/L (20-30)
[2023-12-23 06:27] LABS: BUN/Creatinine Ratio 7.1 (10.0-20.0); Blood Urea Nitrogen 39 mg/dL (9-23); Glucose 164 mg/dL (74-106)
[2023-12-23 06:29] LABS: Albumin 3.2 g/dL (3.2-4.8)
[2023-12-23 06:44] LABS: Basophils # (auto) 0 10 ^3/uL (0-0.2); Basophils % (auto) 0.2 % (0.0-2.0); Eosinophils # (auto) 0.2 10 ^3/uL (0-0.8); Lymphocytes # (auto) 0.7 10 ^3/uL (0.4-5.4); Mean Corpuscular Hgb Conc. 33.1 g/dL (32.0-36.0); Monocytes # (auto) 0.4 10 ^3/uL (0-1.3); Neutrophils # (auto) 9.7 10 ^3/uL (1.6-8.6)
[2023-12-23 06:49] LABS: Eosinophils % (auto) 1.6 % (0.0-7.0); Hematocrit 25.1 % (41.0-53.0); Hemoglobin 8.3 g/dL (13.5-17.5); Lymphocytes % (auto) 6.5 % (10.0-50.0); Mean Corpuscular Hemoglobin 27.1 pg (28.0-32.0); Mean Corpuscular Volume 81.8 fL (80.0-100.0); Monocytes % (auto) 3.8 % (0.0-12.0); Neutrophils % (auto) 87.9 % (37.0-80.0); Red Blood Cells 3.06 10^6/uL (4.5-5.90); Red Cell Distribution Width 17.3 % (11.8-14.3)
[2023-12-23] MEDS: NOREPINEPHRINE 8 MG/250ML KIT 250 ML IV SCH (08:30)
[2023-12-23] MEDS: ALBUMIN 25% 50 ML IV SCH (09:48)
[2023-12-23] MEDS: metOLazone 5 MG TAB PO SCH (10:10)
[2023-12-23] MEDS: ACCU-CHEK COMFORT CURVE STRIP VI SCH (17:21)
[2023-12-23] MEDS: HEPARIN 1,000 UNITS/ml 1ML VIAL IV ONE (18:00)
[2023-12-23] MEDS: ACETYLCYSTEINE 10 %(100MG/ML) SOL 4ML NEB SCH (18:31)
[2023-12-24] VITALS (116 sets, daily range): BP systolic 58–176; BP diastolic 22–143; PULSE 102–153; RESP 10–28; TEMP 97.9–98.8; O2SAT 62–100
[2023-12-24 04:44] LABS: Basophils # (auto) 0 10 ^3/uL (0-0.2); Basophils % (auto) 0.1 % (0.0-2.0); Eosinophils # (auto) 0.1 10 ^3/uL (0-0.8); Eosinophils % (auto) 0.4 % (0.0-7.0); Hematocrit 25.3 % (41.0-53.0); Hemoglobin 8.4 g/dL (13.5-17.5); Lymphocytes # (auto) 0.6 10 ^3/uL (0.4-5.4); Lymphocytes % (auto) 3.6 % (10.0-50.0); Mean Corpuscular Hemoglobin 27.1 pg (28.0-32.0); Mean Corpuscular Hgb Conc. 33.3 g/dL (32.0-36.0); Mean Corpuscular Volume 81.6 fL (80.0-100.0); Monocytes # (auto) 0.5 10 ^3/uL (0-1.3); Neutrophils # (auto) 14.5 10 ^3/uL (1.6-8.6); Neutrophils % (auto) 92.9 % (37.0-80.0); Red Cell Distribution Width 16.9 % (11.8-14.3); White Blood Cell 15.6 10^3/uL (4.4-10.8)
[2023-12-24 04:46] LABS: Chloride 95 mmol/L (98-107); Sodium 129 mmol/L (136-145)
[2023-12-24 04:47] LABS: Anion Gap 11 (5-15); Carbon Dioxide 23 mmol/L (20-30)
[2023-12-24 04:48] LABS: Calcium 9.1 mg/dL (8.7-10.4)
[2023-12-24 04:52] LABS: BUN/Creatinine Ratio 7.5 (10.0-20.0); Blood Urea Nitrogen 40 mg/dL (9-23); Glucose 170 mg/dL (74-106)
[2023-12-24] MEDS ORDERED: SODIUM CHL 0.9% 1000 ML BAG XX ONE (08:15)
[2023-12-24] MEDS: MICAFUNGIN SODIUM 100 MG in SODIUM CHL 0.9% 100 ML IV ONE (14:49)
[2023-12-24] MEDS: AMIODARONE BOLUS KIT 100 ML IV ONE (16:26)
[2023-12-24] MEDS: diphenhdrAMINE HCL 50 MG/1 ML VL IV ONE (18:05)
[2023-12-24] MEDS: ALBUMIN 25% 100 ML IV STA (18:07)
[2023-12-24] MEDS ORDERED: ALBUMIN 25% 100 ML IV ONE (18:15)
[2023-12-24] MEDS: LEVALBUTEROL HCL 1.25 MG/3 ML NEB NEB SCH (20:00)
[2023-12-24] MEDS: IPRATROPIUM BROM 0.5 MG/2.5ML INH SOL NEB SCH (20:00)
[2023-12-24] MEDS: PHENYLEPHRINE IV 250 ML IV ONE (20:07)
[2023-12-24] MEDS: PHENYLEPHRINE IV 250 ML IV SCH (20:26)
[2023-12-24] MEDS: VASOPRESSIN 20 UNITS in SODIUM CHL 0.9% 99 ML IV SCH (20:26)
[2023-12-24] MEDS: EPOETIN ALFA-EPBX 10,000 UNIT/1ML VIAL SC ONE (21:00)
[2023-12-24] MEDS: HEPARIN SODIUM (PORCINE) 5000 UNITS/ML 1ML VIAL SC SCH (21:37)
[2023-12-24] MEDS: AMIODARONE 450mg/250ml AE 250 ML IV ONE (21:46)
[2023-12-24] MEDS: NOREPINEPHRINE 8 MG/250ML KIT 250 ML IV ONE (22:03)
[2023-12-24 22:10] LABS: Base Excess -15.2 mmol/L (-2.0-2.0)
[2023-12-24] MEDS: AMIODARONE 450mg/250ml AE 250 ML IV SCH (22:11)
[2023-12-24] MEDS: NOREPINEPHRINE BITARTRATE 32 MG in SODIUM CHL 0.9% 218 ML IV SCH (23:50)
[2023-12-24] MEDS: PHENYLEPHRINE INJ 80 MG in SODIUM CHL 0.9% 242 ML IV SCH (23:53)
[2023-12-25] VITALS: BP 132/44; PULSE 105; PULSE 110; RESP 20; RESP 22; O2SAT 87; O2SAT 88
[2023-12-25 00:30] VITALS: BP 122/35; PULSE 103; RESP 20; O2SAT 86
[2023-12-25] MEDS: SODIUM CHLORIDE 0.9% 1,000 ML IV ONE (01:00)
[2023-12-25] MEDS: ALBUMIN 5% 250 ML IV ONE ×2 (01:25→02:07)
[2023-12-25] MEDS: EPINEPHrine HCL 250 ML IV ONE ×2 (01:29→01:30)
[2023-12-25] MEDS: EPINEPHrine HCL 250 ML IV SCH (01:38)
[2023-12-25 01:41] VITALS: BP 42/21
[2023-12-25] MEDS ORDERED: ATROPINE SULF 1 MG/10ml SYR IV ONE (05:27)
[2023-12-25 09:14] LABS: Hepatitis B Surface Antigen Negative (Negative)
[2023-12-25 09:35] LABS: Hepatitis A Ab IgM Negative
[2023-12-25 09:36] LABS: Hepatitis B Core IgM Negative; Hepatitis C Antibody Negative (Negative)
[2023-12-25] MEDS ORDERED: MICAFUNGIN SODIUM 100 MG in SODIUM CHL 0.9% 100 ML IV SCH (10:00)
[2023-12-25] MEDS ORDERED: PANTOPRAZOLE 40 MG/10 ML VIAL INJ IV SCH (10:00)
== END 2023-12-25 05:28 | DRG 871 ==
LOC: EDBD 10:25 → ER 10:28 → TELE 14:39 → TELE-EAST 12-15 23:51 → EAST 12-17 15:12 → TELE-EAST 12-20 00:53 → EAST 12-21 18:07 → TELE-EAST 12-21 23:45 → DOU IN ICU 12-23 12:00 → ICU CENTRL 12-24 06:46
PROVIDERS: ADMIT Internal Medicine; ATTEND Internal Medicine
PROC: 05HA33Z Insertion of Infusion Device into Left Brachial Vein, Percutaneous Approach (ICD-10-PCS; 2023-12-14)
PROC: B54NZZA Ultrasonography of Left Upper Extremity Veins, Guidance (ICD-10-PCS; 2023-12-14)
PROC: 02HV33Z Insertion of Infusion Device into Superior Vena Cava, Percutaneous Approach (ICD-10-PCS; principal; 2023-12-23)
PROC: B548ZZA Ultrasonography of Superior Vena Cava, Guidance (ICD-10-PCS; 2023-12-23)
PROC: 5A1D70Z Performance of Urinary Filtration, Intermittent, Less than 6 Hours Per Day (ICD-10-PCS; 2023-12-24)
PROC: 5A09357 Assistance with Respiratory Ventilation, Less than 24 Consecutive Hours, Continuous Positive Airway Pressure (ICD-10-PCS; 2023-12-24)
PROC: 5A09357 Assistance with Respiratory Ventilation, Less than 24 Consecutive Hours, Continuous Positive Airway Pressure (ICD-10-PCS; 2023-12-25)
DX: A41.9 Sepsis, unspecified organism (principal); E43 Unspecified severe protein-calorie malnutrition; G92.8 Other toxic encephalopathy; J69.0 Pneumonitis due to inhalation of food and vomit; J96.01 Acute respiratory failure with hypoxia; N17.0 Acute kidney failure with tubular necrosis; I50.33 Acute on chronic diastolic (congestive) heart failure; R65.21 Severe sepsis with septic shock; I13.0 Hypertensive heart and chronic kidney disease with heart failure and stage 1 through stage 4 chronic kidney disease, or unspecified chronic kidney disease; E87.20 Acidosis, unspecified; E87.1 Hypo-osmolality and hyponatremia; N39.0 Urinary tract infection, site not specified; Z68.41 Body mass index [BMI] 40.0-44.9, adult; E11.22 Type 2 diabetes mellitus with diabetic chronic kidney disease; Z66 Do not resuscitate; E83.42 Hypomagnesemia; D63.8 Anemia in other chronic diseases classified elsewhere; E03.9 Hypothyroidism, unspecified; E66.01 Morbid (severe) obesity due to excess calories; E78.5 Hyperlipidemia, unspecified; E87.6 Hypokalemia; E88.09 Other disorders of plasma-protein metabolism, not elsewhere classified; F02.80 Dementia in other diseases classified elsewhere, unspecified severity, without behavioral disturbance, psychotic disturbance, mood disturbance, and anxiety; K52.9 Noninfective gastroenteritis and colitis, unspecified; K76.9 Liver disease, unspecified; N18.32 Chronic kidney disease, stage 3b; R62.7 Adult failure to thrive; T36.8X5A Adverse effect of other systemic antibiotics, initial encounter; T46.2X5A Adverse effect of other antidysrhythmic drugs, initial encounter; D64.9 Anemia, unspecified; L89.152 Pressure ulcer of sacral region, stage 2; Z86.718 Personal history of other venous thrombosis and embolism; Z79.4 Long term (current) use of insulin; Z90.49 Acquired absence of other specified parts of digestive tract; Z83.3 Family history of diabetes mellitus; Z82.0 Family history of epilepsy and other diseases of the nervous system; Z87.891 Personal history of nicotine dependence; Y92.89 Other specified places as the place of occurrence of the external cause
CPT/HCPCS: 36415; 36600; 70450; 71045; 74176; 76775; 80048; 80053; 80074; 80202; 80307; 81001; 82040; 82043; 82140; 82270; 82306; 82570; 82607; 82805; 82962; 83605; 83735; 83880; 84100; 84132; 84156; 84300; 84439; 84443; 85025; 85610; 85652; 85730; 86141; 87040; 87070; 87077; 87081; 87086; 87088; 87186; 87205; 90935; 92610; 92950; 93005; 93306; 93970; 93971; 94640; 94660; 96365; 97163; G0378; J0171; J1450; J2185; J2248; J2405; J2543; J3480; J7060; P9047